=== PATIENT | female | born 1960 | race African-American/Black ===

== ENCOUNTER 2020-10-25 15:57 | Inpatient (IN) | payer MEDICARE, MEDICAID ==
[~2020-10-25] VITALS: Ht 170.2 cm; Wt 90.2 kg
[2020-10-25 17:20] LABS: BILIRUBIN,URINE NEG (NEG); CLARITY,URINE CLEAR; COLOR,URINE YELLOW; GLUCOSE,URINE NEG (NEG); NITRITE,URINE NEG (NEG); UROBILINOGEN,URINE 0.2 mg/dL (0.2 mg/dL)
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
[2020-10-25 17:24] LABS: BACTERIA,URINE FEW /HPF (0-FEW); SQUAMOUS EPITHELIAL CELL,UR MOD /LPF
[2020-10-25 17:25] LABS: HYALINE CASTS, URINE OCC /HPF
[2020-10-25 17:56] LABS: BASO % 1 % (0-3); EOS % 1 % (0-3); HEMATOCRIT 35.4 % (36.0-47.0); HEMOGLOBIN 11.6 g/dL (12.0-15.5); LYMPH % 37 % (24-48); MEAN CORPUSCULAR HEMOGLOBIN 29 pg (25-35); MEAN CORPUSCULAR HGB CONC 33 g/dL (31-37); MEAN CORPUSCULAR VOLUME 88 fL (79-100); MONO # 0.4 x10^3/uL (0.0-1.1); MONO % 8 % (0-9); NEUT # 2.8 x10^3uL (1.8-7.7); NEUT % 53 % (31-73); PLATELET COUNT 228 x10^3/uL (140-400); RED BLOOD COUNT 4.03 x10^6/uL (3.50-5.40); RED CELL DISTRIBUTION WIDTH 14.5 % (11.5-14.5); WHITE BLOOD COUNT 5.3 x10^3/uL (4.0-11.0)
[2020-10-25 18:07] LABS: CALCIUM 8.4 mg/dL (8.5-10.1); CREATININE 1.2 mg/dL (0.6-1.0); GFR 55.6; POTASSIUM 4.2 mmol/L (3.5-5.1)
[2020-10-25 18:13] LABS: ALBUMIN 3.4 g/dL (3.4-5.0); TOTAL BILIRUBIN 0.2 mg/dL (0.2-1.0); TOTAL PROTEIN 6.9 g/dL (6.4-8.2)
[2020-10-25] MEDS ORDERED: MAGNESIUM HYDROXIDE 2,400 MG/30 ML ORAL.SUSP. PO PRN (19:00)
[2020-10-25] MEDS ORDERED: METHYL SALICYLATE/MENTHOL TOPICAL OINTMENT 57GM TUBE. TP PRN (19:00)
[2020-10-25] MEDS ORDERED: MAG HYDROX/AL HYDROX/SIMETH 30 ML ORAL.SUSP PO PRN (19:00)
[2020-10-25] MEDS ORDERED: ACETAMINOPHEN 325 MG TABLET PO PRN (19:00)
--- NOTE | 2020-10-25 20:23 | EKG ---
[address] [address] Test Date: 2020-10-25 Test Time: 16:53:38 Pat Name: RAMIN BLACKBURN Department: Room: [address] [place] [address] Gender: F Racing Secretary: CLAUDIA : [id number] Requested By: YANCY REED Order Number: [id number] Reading MD: Marcus Jane Measurements Intervals [place] Rate: 72 P: 35 GA: 122 QRS: 36 QRSD: 82 T: 46 QT: 410 QTc: 451 Interpretive Statements SINUS RHYTHM NORMAL ECG RI6.02 No previous ECG available for comparison Electronically Signed On 10-31-2020 12:46:13 CDT by Marcus Jane
--- NOTE | 2020-10-25 22:01 | PDOC ---
Exam Note: Jaren Note: Please also refer to the separate dictated note~for this date of service dictated separately.~Patient seen individually. Discussed the patient with Nursing staff reviewed the chart.~Reviewed interim history and current functioning. Reviewed vital signs,~Labs/ Radiology~and current medications noted below. Continue current treatment with the changes noted in the dictated addendum note Assessment: Vital Signs/I&O: Vital Signs Date Time Temp Pulse Resp B/P (MAP) Pulse Ox O2 Delivery O2 Flow Rate FiO2 10/25/20 17:08 98.4 75 20 135/101 100 Labs: Laboratory Tests Test 10/25/20 16:43 10/25/20 17:39 10/25/20 19:00 Urine Collection Type Unknown Urine Color Yellow Urine Clarity Clear Urine pH 7.0 Urine Specific [place] 1.020 Urine Protein Neg (NEG-TRACE) Urine Glucose (UA) Neg mg/dL (NEG) Urine Ketones (Stick) Neg mg/dL (NEG) Urine Blood Neg (NEG) Urine Nitrite Neg (NEG) Urine Bilirubin Neg (NEG) Urine Urobilinogen Dipstick 0.2 mg/dL (0.2 mg/dL) Urine Leukocyte Esterase Trace (NEG) Urine RBC 1-2 /HPF (0-2) Urine WBC 1-4 /HPF (0-4) Urine Squamous Epithelial Cells Mod /LPF Urine Transitional Epithelial Cells Few /LPF Urine Renal Epithelial Cells Occ /LPF Urine Bacteria Few /HPF (0-FEW) Urine Hyaline Casts Occ /HPF SARS-CoV-2 Antigen (Rapid) Negative (NEGATIVE) White Blood Count 5.3 x10^3/uL (4.0-11.0) Red Blood Count 4.03 x10^6/uL (3.50-5.40) Hemoglobin 11.6 g/dL (12.0-15.5) L Hematocrit 35.4 % (36.0-47.0) L Mean Corpuscular Volume 88 fL (79-100) Mean Corpuscular Hemoglobin 29 pg (25-35) Mean Corpuscular Hemoglobin Concent 33 g/dL (31-37) Red Cell Distribution Width 14.5 % (11.5-14.5) Platelet Count 228 x10^3/uL (140-400) Neutrophils (%) (Auto) 53 % (31-73) Lymphocytes (%) (Auto) 37 % (24-48) Monocytes (%) (Auto) 8 % (0-9) Eosinophils (%) (Auto) 1 % (0-3) Basophils (%) (Auto) 1 % (0-3) Neutrophils # (Auto) 2.8 x10^3uL (1.8-7.7) Lymphocytes # (Auto) 2.0 x10^3/uL (1.0-4.8) Monocytes # (Auto) 0.4 x10^3/uL (0.0-1.1) Eosinophils # (Auto) 0.0 x10^3/uL (0.0-0.7) Basophils # (Auto) 0.0 x10^3/uL (0.0-0.2) Sodium Level 141 mmol/L (136-145) Potassium Level 4.2 mmol/L (3.5-5.1) Chloride Level 107 mmol/L (98-107) Carbon Dioxide Level 22 mmol/L (21-32) Anion Gap 12 (6-14) Blood Urea Nitrogen 17 mg/dL (7-20) Creatinine 1.2 mg/dL (0.6-1.0) H Estimated GFR (Cockcroft-Gault) 55.6 BUN/Creatinine Ratio 14 (6-20) Glucose Level 250 mg/dL (70-99) H Calcium Level 8.4 mg/dL (8.5-10.1) L Total Bilirubin 0.2 mg/dL (0.2-1.0) Aspartate Amino Transferase (AST) 20 U/L (15-37) Alanine Aminotransferase (ALT) 24 U/L (14-59) Alkaline Phosphatase 144 U/L (46-116) H Troponin I Quantitative < 0.017 ng/mL (0-0.055) Total Protein 6.9 g/dL (6.4-8.2) Albumin 3.4 g/dL (3.4-5.0) Albumin/Globulin Ratio 1.0 (1.0-1.7) Magnesium Level 2.4 mg/dL (1.8-2.4) Current Medications: I have reviewed the current psychotropics carefully including drug interactions. Risk benefit ratio favors no change other than as noted in my dictated progress note. Diagnosis: Problems: (1) Schizoaffective disorder, bipolar type JESSICA RAMESH MD Oct 25, 2020 22:01
[2020-10-25] MEDS ORDERED: SERT100T PO (22:11)
[2020-10-25] MEDS ORDERED: INSU100I13 SQ (22:11)
[2020-10-25] MEDS ORDERED: BUSP10TA PO (22:11)
[2020-10-25] MEDS ORDERED: ACET500T68 PO (22:11)
[2020-10-25] MEDS ORDERED: AMAN100T PO (22:11)
[2020-10-25] MEDS ORDERED: LIPA1CAP6 PO (22:11)
[2020-10-25] MEDS ORDERED: DIVA500T2 PO (22:11)
[2020-10-25] MEDS ORDERED: MELO15TA6 PO (22:11)
[2020-10-25] MEDS ORDERED: CAPS1ADH8 TP (22:11)
[2020-10-25] MEDS ORDERED: LORA2ORA8 PO (22:11)
[2020-10-25] MEDS ORDERED: RISP0.5T62 PO (22:11)
[2020-10-25] MEDS ORDERED: FURO-69 PO (22:11)
[2020-10-25] MEDS ORDERED: DEXTROSE 50% 25 GM / 50ML DISP.SYRIN. IV PRN (22:15)
[2020-10-25 22:25] VITALS: BP 126/75
[2020-10-25] MEDS ORDERED: INSU100C SQ (22:32)
[2020-10-25] MEDS ORDERED: INSU100V SQ (22:32)
[2020-10-25] MEDS ORDERED: DIVALPROEX SODIUM 125 MG TABLET.DR. PO SCH (23:00)
[2020-10-25] MEDS: AMANTADINE HCL 100 MG PO SCH (23:00)
[2020-10-25] MEDS: busPIRone 10 MG TABLET. PO SCH (23:19)
[2020-10-25] MEDS: risperiDONE 0.5 MG TABLET. PO SCH (23:19)
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
[2020-10-26 06:02] VITALS: BP 158/76
[2020-10-26] MEDS: INSULIN LISPRO 300 UNITS/3 ML VIAL. SQ SCH ×2 (08:00→12:20)
[2020-10-26] MEDS ORDERED: CAPSAICIN TP SCH (09:00)
[2020-10-26] MEDS ORDERED: NON FORMULARY ITEM (Insulin Lispro (Humalog) 10 UNIT) SQ SCH (09:00)
[2020-10-26] MEDS ORDERED: INSULIN LISPRO 300 UNITS/3 ML VIAL. SQ SCH ×2 (09:00→12:00)
[2020-10-26] MEDS: NICOTINE 14MG PATCH. TD SCH (09:00)
[2020-10-26] MEDS ORDERED: MENTHOL TP SCH (09:00)
--- NOTE | 2020-10-26 09:20 | NUR ---
Patient has been provided with Practical Counseling for tobacco cessation. It included a face to face interaction and the following was discussed: Recognizing danger situations, Developing coping skills,Basic cessation information. Will follow for discharge needs and discharge planning.
[2020-10-26] MEDS: LIPASE/PROTEAS/AMYLAS 10/32/42 CAPSULE.DR. PO SCH (09:45)
[2020-10-26] MEDS: ACETAMINOPHEN 500 MG TABLET PO SCH (09:45)
[2020-10-26] MEDS: SERTRALINE 100 MG TABLET. PO SCH (09:45)
[2020-10-26] MEDS: busPIRone 10 MG TABLET. PO SCH ×3 (09:45→21:03)
[2020-10-26] MEDS: FUROSEMIDE 20 MG TABLET PO SCH (09:46)
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
[2020-10-26 11:12] LABS: THYROXINE 5.1 ug/dL (4.5-12.0)
[2020-10-26] MEDS: LORazepam 1 MG TABLET PO PRN (11:20)
[2020-10-26] MEDS ORDERED: INSULIN GLARGINE SYRINGE. SQ SCH ×2 (12:00→16:00)
[2020-10-26] MEDS ORDERED: INSULIN LISPRO 18 UNIT SQ SCH (12:00)
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
[2020-10-26 15:56] LABS: THYROID STIM HORMONE (TSH) 0.933 uIU/mL (0.358-3.740)
[2020-10-26 16:03] VITALS: BP 134/76
[2020-10-26] MEDS ORDERED: DEXTROSE 50% 25 GM / 50ML DISP.SYRIN. IV PRN (16:15)
[2020-10-26] MEDS: MELOXICAM 15 MG TABLET. PO SCH ×2 (21:00→21:06)
[2020-10-26] MEDS: DIVALPROEX ER 500 MG TAB.ER.24H PO SCH ×2 (21:00→21:04)
[2020-10-26] MEDS: risperiDONE 0.5 MG TABLET. PO SCH ×2 (21:00→21:04)
[2020-10-26] MEDS: AMANTADINE HCL 100 MG PO SCH (21:00)
[2020-10-26] MEDS: DIVALPROEX ER 250 MG TAB.ER.24H. PO SCH ×2 (21:00→21:03)
--- NOTE | 2020-10-26 22:51 | PDOC ---
Exam Note: Jaren Note: Please also refer to the separate dictated note~for this date of service dictated separately.~Patient seen individually. Discussed the patient with Nursing staff reviewed the chart.~Reviewed interim history and current functioning. Reviewed vital signs,~Labs/ Radiology~and current medications noted below. Continue current treatment with the changes noted in the dictated addendum note Assessment: Vital Signs/I&O: Vital Signs Date Time Temp Pulse Resp B/P (MAP) Pulse Ox O2 Delivery O2 Flow Rate FiO2 10/26/20 16:03 97.0 68 18 134/76 (95) 96 10/26/20 06:02 Room Air Labs: Laboratory Tests Test 10/26/20 09:34 10/26/20 12:16 10/26/20 15:23 10/26/20 15:38 Glucose (Fingerstick) 150 mg/dL (70-99) H 250 mg/dL (70-99) H 20 mg/dL (70-99) *L 27 mg/dL (70-99) *L Test 10/26/20 15:52 10/26/20 16:01 10/26/20 16:12 10/26/20 17:06 Glucose (Fingerstick) 22 mg/dL (70-99) *L 36 mg/dL (70-99) *L 40 mg/dL (70-99) L 119 mg/dL (70-99) H Test 10/26/20 19:41 Glucose (Fingerstick) 421 mg/dL (70-99) H Current Medications: Meds: Current Medications Medications (Trade) Dose Ordered Sig/Jenise Route PRN Reason Start Time Stop Time Status Last Admin Dose Admin Insulin Human Lispro (HumaLOG) 0-7 UNITS TIDWMEALS SQ 10/26/20 08:00 10/26/20 16:01 DC 10/26/20 12:20 Insulin Human Lispro (HumaLOG) 10 units [id number] SQ 10/26/20 09:00 10/26/20 16:01 DC 10/26/20 09:00 Insulin Human Lispro (HumaLOG) 18 units NOON SQ 10/26/20 12:00 10/26/20 16:01 DC 10/26/20 12:00 Acetaminophen (Tylenol) 1,000 mg DAILY PO 10/26/20 09:00 10/26/20 09:45 Buspirone HCl (Buspar) 10 mg BID PO 10/25/20 23:00 10/26/20 09:45 Furosemide (Lasix) 20 mg DAILY PO 10/26/20 09:00 10/26/20 09:46 Lorazepam (Ativan) 2 mg PRN Q4HRS PRN PO ANXIETY / AGITATION 10/25/20 23:00 10/26/20 11:20 Risperidone (RisperDAL) 0.75 mg QHS PO 10/25/20 23:00 10/25/20 23:19 Sertraline HCl (Zoloft) 100 mg DAILY PO 10/26/20 09:00 10/26/20 09:45 Amantadine HCl (Symmetrel) 100 mg HS PO 10/25/20 23:00 10/25/20 23:00 Divalproex Sodium (Depakote) 1,250 mg HS PO 10/25/20 23:00 10/26/20 13:06 DC 10/25/20 23:18 Insulin Glargine (Lantus Syringe) 16 unit NOON SQ 10/26/20 12:00 10/26/20 16:01 DC 10/26/20 12:00 Amylase/Lipase/ Protease (Zenpep 10,000) 2 cap DAILY PO 10/26/20 09:00 10/26/20 09:45 Nicotine (Nicoderm Cq 14mg Patch) 1 patch DAILY TD 10/26/20 09:00 10/26/20 09:00 I have reviewed the current psychotropics carefully including drug interactions. Risk benefit ratio favors no change other than as noted in my dictated progress note. Diagnosis: Problems: (1) Schizoaffective disorder, bipolar type JESSICA RAMESH MD Oct 26, 2020 22:51
--- NOTE | 2020-10-26 22:58 | NUR ---
Nursing notes: Pt sleeping, arousable, but refused medications. Addendum: 10/27/20 at 0012 by FLORENCIO CHINO RN Called Dr. Glez at 2013 regarding blood glucose level of 421; order monitor, recheck at midnight.
[2020-10-27 00:07] LABS: HEMOGLOBIN A1C 7.8 % (4.8-5.6)
[2020-10-27 05:57] VITALS: BP 132/75
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
[2020-10-27] MEDS: LIPASE/PROTEAS/AMYLAS 10/32/42 CAPSULE.DR. PO SCH (08:33)
[2020-10-27] MEDS: FUROSEMIDE 20 MG TABLET PO SCH (08:33)
[2020-10-27] MEDS: SERTRALINE 100 MG TABLET. PO SCH (08:33)
[2020-10-27] MEDS: busPIRone 10 MG TABLET. PO SCH ×2 (08:33→20:41)
[2020-10-27] MEDS: ACETAMINOPHEN 500 MG TABLET PO SCH (08:34)
[2020-10-27] MEDS: INSULIN LISPRO 300 UNITS/3 ML VIAL. SQ SCH ×4 (08:39→20:47)
[2020-10-27] MEDS: NICOTINE 14MG PATCH. TD SCH (08:42)
--- NOTE | 2020-10-27 09:45 | RAD ---
EXAM: CT head without contrast INDICATION: Baseline COMPARISON: None TECHNIQUE: Axial CT imaging through the head without intravenous contrast. One or more of the following individualized dose reduction techniques were utilized for this examinat ion: 1. Automated exposure control 2. Adjustment of the mA and/or kV according to patient size 3. Use of iterative reconstruction technique. FINDINGS: The ventricles and sulci are mildly enlarged. Moser-white matter differentiation is maintained. There is no intracranial hemorrhage, acute infarct, or mass lesion. Basal cisterns are clear. The skull and scalp are intact. Visualized paranasal sinuses and mastoid air cells are clear. Globes and orbits ar e intact. IMPRESSION: No acute intracranial abnormality. Electronically signed by: Jerri Courtney MD (10/27/2020 9:43 AM) [id number]
[2020-10-27 15:39] VITALS: BP 148/86
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
[2020-10-27] MEDS: AMANTADINE HCL 100 MG PO SCH (20:41)
[2020-10-27] MEDS: risperiDONE 0.5 MG TABLET. PO SCH (20:41)
[2020-10-27] MEDS: DIVALPROEX ER 250 MG TAB.ER.24H. PO SCH (20:41)
[2020-10-27] MEDS: DIVALPROEX ER 500 MG TAB.ER.24H PO SCH (20:41)
[2020-10-27] MEDS: MELOXICAM 15 MG TABLET. PO SCH (20:41)
--- NOTE | 2020-10-27 22:29 | PDOC ---
Exam Note: Jaren Note: Please also refer to the separate dictated note~for this date of service dictated separately.~Patient seen individually. Discussed the patient with Nursing staff reviewed the chart.~Reviewed interim history and current functioning. Reviewed vital signs,~Labs/ Radiology~and current medications noted below. Continue current treatment with the changes noted in the dictated addendum note Assessment: Vital Signs/I&O: Vital Signs Date Time Temp Pulse Resp B/P (MAP) Pulse Ox O2 Delivery O2 Flow Rate FiO2 10/27/20 15:39 97.9 72 20 148/86 (106) 98 10/27/20 05:57 Room Air I & O 10/26/20 10/26/20 10/27/20 15:00 23:00 07:00 Intake Total 240 ml 480 ml Balance 240 ml 480 ml Labs: Laboratory Tests Test 10/27/20 00:39 10/27/20 07:39 10/27/20 11:23 10/27/20 16:43 Glucose (Fingerstick) 286 mg/dL (70-99) H 225 mg/dL (70-99) H 341 mg/dL (70-99) H 326 mg/dL (70-99) H Test 10/27/20 19:15 Glucose (Fingerstick) 296 mg/dL (70-99) H Current Medications: Meds: Current Medications Medications (Trade) Dose Ordered Sig/Jenise Route PRN Reason Start Time Stop Time Status Last Admin Dose Admin Insulin Human Lispro (HumaLOG) 0-5 UNITS TIDWMEALS SQ 10/27/20 08:00 10/27/20 19:44 DC 10/27/20 17:29 Insulin Human Lispro (HumaLOG) 0-5 UNITS QIDACHS SQ 10/27/20 21:00 10/27/20 20:47 I have reviewed the current psychotropics carefully including drug interactions. Risk benefit ratio favors no change other than as noted in my dictated progress note. Diagnosis: Problems: (1) Bipolar disorder, current episode mixed, severe, with psychotic features (2) Anxiety disorder, unspecified (3) Impulse control disorder, unspecified (4) Mild cognitive impairment (5) Schizoaffective disorder, bipolar type JESSICA RAMESH MD Oct 27, 2020 22:29
--- NOTE | 2020-10-27 22:46 | NUR ---
Pt sitting up in the dayroom on assessment. Pt calm and compliant with medication and assessment. Pt denies pain at this time. No behaviors noted at this time.
[2020-10-28 05:45] VITALS: BP 125/76
[2020-10-28] MEDS: INSULIN LISPRO 300 UNITS/3 ML VIAL. SQ SCH ×3 (07:30→17:18)
[2020-10-28] MEDS: busPIRone 10 MG TABLET. PO SCH ×2 (09:00→20:06)
[2020-10-28] MEDS: LIPASE/PROTEAS/AMYLAS 10/32/42 CAPSULE.DR. PO SCH (09:01)
[2020-10-28] MEDS: SERTRALINE 100 MG TABLET. PO SCH (09:01)
[2020-10-28] MEDS: ACETAMINOPHEN 500 MG TABLET PO SCH (09:01)
[2020-10-28] MEDS: FUROSEMIDE 20 MG TABLET PO SCH (09:02)
[2020-10-28] MEDS: NICOTINE 14MG PATCH. TD SCH (09:03)
--- NOTE | 2020-10-28 09:46 | PDOC ---
Exam Note: Jaren Note: This note is a late entry for 10/27/2020 covers elements not covered in my initial note. Subjective: The patient was seen on telehealth rounds in the afternoon of 10/27/2020 as an option during the COVID-19 pandemic period with Maryanne TOBIN, discussed and reviewed the chart. She slept 9-1/2 hours previous night. The patient had low blood sugar yesterday which was corrected and some of the confusion from that seemed to improve. She came to the dayroom after breakfast, was calm, response to her name, unsure of her birthday. CT head shows no acute changes but there is ventricular enlargement and widening of the sulci. When I questioned her on telehealth rounds on where she came from she stated she came here directly from [place], unaware of the name of the facility where she came from. Review of Systems: Ambulation impaired in wheelchair. No CV, , pulmonary, eye, ENT system symptoms on review. Mental Status Exam: The patient is oriented to herself and at times situation. Speech has some latency, coherent. Abstraction fair. Computation impaired. Language function intact. Attention span short. Memory is impaired, somewhat paranoid. No suicidal or homicidal ideation. Laboratory Data: Reviewed. Impression: Schizoaffective disorder bipolar type with psychotic features. Anxiety disorder unspecified. Impulse control disorder unspecified. Mild cognitive impairment. Plan: Continue current psychotropics. Valproic acid level is awaited. We will adjust Depakote thereafter. Consider increasing Risperdal for psychotic symptoms. We may consider changing Zoloft to Wellbutrin as an antidepressant. We will make all these decisions post-baseline assessment. Assessment: Vital Signs/I&O: Vital Signs Date Time Temp Pulse Resp B/P (MAP) Pulse Ox O2 Delivery O2 Flow Rate FiO2 10/28/20 05:45 97.2 72 16 125/76 (92) 98 10/27/20 05:57 Room Air I & O 0 10/27/20 10/27/20 10/28/20 15:00 23:00 07:00 Intake Total 1080 ml 720 ml Balance 1080 ml 720 ml Labs: Laboratory Tests Test 10/27/20 11:23 10/27/20 16:43 10/27/20 19:15 10/28/20 07:51 Glucose (Fingerstick) 341 mg/dL (70-99) H 326 mg/dL (70-99) H 296 mg/dL (70-99) H 201 mg/dL (70-99) H Current Medications: Meds: Laboratory Tests Test 10/27/20 11:23 10/27/20 16:43 10/27/20 19:15 10/28/20 07:51 Glucose (Fingerstick) 341 mg/dL 326 mg/dL 296 mg/dL 201 mg/dL Current Medications Medications (Trade) Dose Ordered Sig/Jenise Route PRN Reason Start Time Stop Time Status Last Admin Dose Admin Acetaminophen (Tylenol) 650 mg PRN Q6HRS PRN PO MILD PAIN / TEMP > 100.3'F 10/25/20 19:00 Multi-Ingredient Ointment (Analgesic [place]) 1 cody PRN QID PRN TP MUSCLE PAIN 10/25/20 19:00 Al Hydroxide/Mg Hydroxide (Mylanta Plus Xs) 15 ml PRN AFTMEALHC PRN PO DYSPEPSIA 10/25/20 19:00 Magnesium Hydroxide (Milk Of Magnesia) 2,400 mg PRN QHS PRN PO CONSTIPATION 10/25/20 19:00 Insulin Human Lispro (HumaLOG) 0-7 UNITS TIDWMEALS SQ 10/26/20 08:00 10/26/20 16:01 DC 10/26/20 12:20 Dextrose (Dextrose 50%-Water Syringe) 12.5 gm PRN Q15MIN PRN IV SEE COMMENTS 10/25/20 22:15 10/26/20 16:01 DC Insulin Human Lispro (HumaLOG) 10 units BID94 SQ 10/26/20 09:00 10/26/20 16:01 DC 10/26/20 09:00 Insulin Human Lispro (HumaLOG) 18 units NOON SQ 10/26/20 12:00 10/26/20 16:01 DC 10/26/20 12:00 Acetaminophen (Tylenol) 1,000 mg DAILY PO 10/26/20 09:00 10/28/20 09:01 Buspirone HCl (Buspar) 10 mg BID PO 10/25/20 23:00 10/28/20 09:00 Furosemide (Lasix) 20 mg DAILY PO 10/26/20 09:00 10/28/20 09:02 Lorazepam (Ativan) 2 mg PRN Q4HRS PRN PO ANXIETY / AGITATION 10/25/20 23:00 10/26/20 11:20 Risperidone (RisperDAL) 0.75 mg QHS PO 10/25/20 23:00 10/27/20 20:41 Sertraline HCl (Zoloft) 100 mg DAILY PO 10/26/20 09:00 10/28/20 09:01 Amantadine HCl (Symmetrel) 100 mg HS PO 10/25/20 23:00 10/27/20 20:41 Non-Formulary Medication (Capsaicin/ Menthol (Salonpas Gel-Patch Hot)) 1 patch DAILY TP 10/26/20 09:00 UNV Divalproex Sodium (Depakote) 1,250 mg HS PO 10/25/20 23:00 10/26/20 13:06 DC 10/25/20 23:18 Insulin Glargine (Lantus Syringe) 16 unit NOON SQ 10/26/20 12:00 10/26/20 16:01 DC 10/26/20 12:00 Amylase/Lipase/ Protease (Zenpep 10,000) 2 cap DAILY PO 10/26/20 09:00 10/28/20 09:01 Meloxicam (Mobic) 15 mg HS PO 10/26/20 21:00 10/27/20 20:41 Non-Formulary Medication (Insulin Lispro (Humalog)) 10 unit BID94 SQ 10/26/20 09:00 UNV Non-Formulary Medication (Insulin Lispro (Humalog)) 18 unit NOON SQ 10/26/20 12:00 UNV Nicotine (Nicoderm Cq 14mg Patch) 1 patch DAILY TD 10/26/20 09:00 10/28/20 09:03 Divalproex Sodium (Depakote Er) 1,000 mg HS PO 10/26/20 21:00 10/27/20 20:41 Divalproex Sodium (Depakote Er) 250 mg HS PO 10/26/20 21:00 10/27/20 20:41 Glucose (Insta-Glucose) 15 gm PRN Q15MIN PRN PO LOW BLOOD SUGAR 10/26/20 15:45 Insulin Glargine (Lantus Syringe) 8 unit NOON SQ 10/26/20 16:00 UNV Insulin Human Lispro (HumaLOG) 0-5 UNITS TIDWMEALS SQ 10/27/20 08:00 10/27/20 19:44 DC 10/27/20 17:29 Dextrose (Dextrose 50%-Water Syringe) 12.5 gm PRN Q15MIN PRN IV SEE COMMENTS 10/26/20 16:15 Insulin Human Lispro (HumaLOG) 0-5 UNITS QIDACHS SQ 10/27/20 21:00 10/27/20 20:47 Current Medications Medications (Trade) Dose Ordered Sig/Jenise Route PRN Reason Start Time Stop Time Status Last Admin Dose Admin Insulin Human Lispro (HumaLOG) 0-5 UNITS QIDACHS SQ 10/27/20 21:00 10/27/20 20:47 I have reviewed the current psychotropics carefully including drug interactions. Risk benefit ratio favors no change other than as noted in my dictated progress note. Diagnosis: Problems: (1) Schizoaffective disorder, bipolar type (2) Impulse control disorder, unspecified (3) Mild cognitive impairment (4) Anxiety disorder, unspecified (5) Bipolar disorder, current episode mixed, severe, with psychotic features JESSICA RAMESH MD Oct 28, 2020 09:46
--- NOTE | 2020-10-28 11:27 | NUR ---
Nursing Note Pt pleasant and cooperative. No behaviors compliant with meds. Denies complaints.
[2020-10-28] MEDS ORDERED: INSULIN LISPRO 300 UNITS/3 ML VIAL. SQ SCH (12:00)
[2020-10-28] MEDS ORDERED: DEXTROSE 50% 25 GM / 50ML DISP.SYRIN. IV PRN (12:00)
[2020-10-28 16:34] VITALS: BP 140/76
[2020-10-28] MEDS: AMANTADINE HCL 100 MG PO SCH (20:05)
[2020-10-28] MEDS: DIVALPROEX ER 250 MG TAB.ER.24H. PO SCH (20:05)
[2020-10-28] MEDS: MELOXICAM 15 MG TABLET. PO SCH (20:05)
[2020-10-28] MEDS: DIVALPROEX ER 500 MG TAB.ER.24H PO SCH (20:05)
[2020-10-28] MEDS: risperiDONE 0.5 MG TABLET. PO SCH (20:06)
[2020-10-28] MEDS ORDERED: INSULIN GLARGINE SYRINGE. SQ SCH (21:00)
--- NOTE | 2020-10-28 21:58 | PDOC ---
Exam Note: Jaren Note: Please also refer to the separate dictated note~for this date of service dictated separately.~Patient seen individually. Discussed the patient with Nursing staff reviewed the chart.~Reviewed interim history and current functioning. Reviewed vital signs,~Labs/ Radiology~and current medications noted below. Continue current treatment with the changes noted in the dictated addendum note Assessment: Vital Signs/I&O: Vital Signs Date Time Temp Pulse Resp B/P (MAP) Pulse Ox O2 Delivery O2 Flow Rate FiO2 10/28/20 16:34 97.3 89 16 140/76 (97) 95 10/27/20 05:57 Room Air I & O 10/27/20 10/27/20 10/28/20 15:00 23:00 07:00 Intake Total 1080 ml 720 ml Balance 1080 ml 720 ml Labs: Laboratory Tests Test 10/28/20 07:51 10/28/20 11:31 10/28/20 16:51 10/28/20 19:02 Glucose (Fingerstick) 201 mg/dL (70-99) H 487 mg/dL (70-99) H 203 mg/dL (70-99) H 217 mg/dL (70-99) H Current Medications: Meds: Laboratory Tests Test 10/28/20 07:51 10/28/20 11:31 10/28/20 16:51 10/28/20 19:02 Glucose (Fingerstick) 201 mg/dL 487 mg/dL 203 mg/dL 217 mg/dL Current Medications Medications (Trade) Dose Ordered Sig/Jenise Route PRN Reason Start Time Stop Time Status Last Admin Dose Admin Acetaminophen (Tylenol) 650 mg PRN Q6HRS PRN PO MILD PAIN / TEMP > 100.3'F 10/25/20 19:00 Multi-Ingredient Ointment (Analgesic [place]) 1 cody PRN QID PRN TP MUSCLE PAIN 10/25/20 19:00 Al Hydroxide/Mg Hydroxide (Mylanta Plus Xs) 15 ml PRN AFTMEALHC PRN PO DYSPEPSIA 10/25/20 19:00 Magnesium Hydroxide (Milk Of Magnesia) 2,400 mg PRN QHS PRN PO CONSTIPATION 10/25/20 19:00 Insulin Human Lispro (HumaLOG) 0-7 UNITS TIDWMEALS SQ 10/26/20 08:00 10/26/20 16:01 DC 10/26/20 12:20 Dextrose (Dextrose 50%-Water Syringe) 12.5 gm PRN Q15MIN PRN IV SEE COMMENTS 10/25/20 22:15 10/26/20 16:01 DC Insulin Human Lispro (HumaLOG) 10 units BID94 SQ 10/26/20 09:00 10/26/20 16:01 DC 10/26/20 09:00 Insulin Human Lispro (HumaLOG) 18 units NOON SQ 10/26/20 12:00 10/26/20 16:01 DC 10/26/20 12:00 Acetaminophen (Tylenol) 1,000 mg DAILY PO 10/26/20 09:00 10/28/20 09:01 Buspirone HCl (Buspar) 10 mg BID PO 10/25/20 23:00 10/28/20 20:06 Furosemide (Lasix) 20 mg DAILY PO 10/26/20 09:00 10/28/20 09:02 Lorazepam (Ativan) 2 mg PRN Q4HRS PRN PO ANXIETY / AGITATION 10/25/20 23:00 10/26/20 11:20 Risperidone (RisperDAL) 0.75 mg QHS PO 10/25/20 23:00 10/28/20 20:06 Sertraline HCl (Zoloft) 100 mg DAILY PO 10/26/20 09:00 10/28/20 09:01 Amantadine HCl (Symmetrel) 100 mg HS PO 10/25/20 23:00 10/28/20 20:05 Non-Formulary Medication (Capsaicin/ Menthol (Salonpas Gel-Patch Hot)) 1 patch DAILY TP 10/26/20 09:00 UNV Divalproex Sodium (Depakote) 1,250 mg HS PO 10/25/20 23:00 10/26/20 13:06 DC 10/25/20 23:18 Insulin Glargine (Lantus Syringe) 16 unit NOON SQ 10/26/20 12:00 10/26/20 16:01 DC 10/26/20 12:00 Amylase/Lipase/ Protease (Zenpep 10,000) 2 cap DAILY PO 10/26/20 09:00 10/28/20 09:01 Meloxicam (Mobic) 15 mg HS PO 10/26/20 21:00 10/28/20 20:05 Non-Formulary Medication (Insulin Lispro (Humalog)) 10 unit BID94 SQ 10/26/20 09:00 UNV Non-Formulary Medication (Insulin Lispro (Humalog)) 18 unit NOON SQ 10/26/20 12:00 UNV Nicotine (Nicoderm Cq 14mg Patch) 1 patch DAILY TD 10/26/20 09:00 10/28/20 09:03 Divalproex Sodium (Depakote Er) 1,000 mg HS PO 10/26/20 21:00 10/28/20 20:05 Divalproex Sodium (Depakote Er) 250 mg HS PO 10/26/20 21:00 10/28/20 20:05 Glucose (Insta-Glucose) 15 gm PRN Q15MIN PRN PO LOW BLOOD SUGAR 10/26/20 15:45 Insulin Glargine (Lantus Syringe) 8 unit NOON SQ 10/26/20 16:00 UNV Insulin Human Lispro (HumaLOG) 0-5 UNITS TIDWMEALS SQ 10/27/20 08:00 10/27/20 19:44 DC 10/27/20 17:29 Dextrose (Dextrose 50%-Water Syringe) 12.5 gm PRN Q15MIN PRN IV SEE COMMENTS 10/26/20 16:15 Insulin Human Lispro (HumaLOG) 0-5 UNITS QIDACHS SQ 10/27/20 21:00 10/28/20 11:58 DC 10/27/20 20:47 Insulin Glargine (Lantus Syringe) 10 unit QHS SQ 10/28/20 21:00 10/28/20 20:07 Insulin Human Lispro (HumaLOG) 0-9 UNITS TIDWMEALS SQ 10/28/20 12:00 10/28/20 17:18 Dextrose (Dextrose 50%-Water Syringe) 12.5 gm PRN Q15MIN PRN IV SEE COMMENTS 10/28/20 12:00 UNV Insulin Human Lispro (HumaLOG) 12 units ONCE SQ 10/28/20 12:00 10/28/20 12:17 Current Medications Medications (Trade) Dose Ordered Sig/Jenise Route PRN Reason Start Time Stop Time Status Last Admin Dose Admin Insulin Glargine (Lantus Syringe) 10 unit QHS SQ 10/28/20 21:00 10/28/20 20:07 Insulin Human Lispro (HumaLOG) 0-9 UNITS TIDWMEALS SQ 10/28/20 12:00 10/28/20 17:18 Insulin Human Lispro (HumaLOG) 12 units ONCE SQ 10/28/20 12:00 10/28/20 12:17 I have reviewed the current psychotropics carefully including drug interactions. Risk benefit ratio favors no change other than as noted in my dictated progress note. Diagnosis: Problems: (1) Schizoaffective disorder, bipolar type (2) Impulse control disorder, unspecified (3) Mild cognitive impairment (4) Anxiety disorder, unspecified (5) Bipolar disorder, current episode mixed, severe, with psychotic features JESSICA RAMESH MD Oct 28, 2020 21:58
--- NOTE | 2020-10-28 23:29 | NUR ---
Pt sitting up in day room, interacting with peer when approached. Pt calm, pleasant, and social this evening. Pt cooperative with assessment and compliant with medications administered whole. No agitation or aggression noted thus far this shift.
[2020-10-29 05:25] VITALS: BP 161/94
[2020-10-29] MEDS: LIPASE/PROTEAS/AMYLAS 10/32/42 CAPSULE.DR. PO SCH (08:30)
[2020-10-29] MEDS: ACETAMINOPHEN 500 MG TABLET PO SCH (08:31)
[2020-10-29] MEDS: busPIRone 10 MG TABLET. PO SCH ×2 (08:31→20:48)
[2020-10-29] MEDS: SERTRALINE 100 MG TABLET. PO SCH (08:31)
[2020-10-29] MEDS: FUROSEMIDE 20 MG TABLET PO SCH (08:31)
[2020-10-29] MEDS: NICOTINE 14MG PATCH. TD SCH (08:32)
[2020-10-29] MEDS: INSULIN LISPRO 300 UNITS/3 ML VIAL. SQ SCH ×3 (08:36→17:26)
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
--- NOTE | 2020-10-29 14:39 | NUR ---
nsg note; nalini has been med compliant, calm and cooperative today. she mostly stays in the dayroom between meals and likes to go outside in the courtyard. she is not interactive with other patients
[2020-10-29 16:09] VITALS: BP 159/100
[2020-10-29] MEDS: DIVALPROEX ER 500 MG TAB.ER.24H PO SCH (20:47)
[2020-10-29] MEDS: DIVALPROEX ER 250 MG TAB.ER.24H. PO SCH (20:47)
[2020-10-29] MEDS: AMANTADINE HCL 100 MG PO SCH (20:48)
[2020-10-29] MEDS: risperiDONE 0.5 MG TABLET. PO SCH (20:49)
[2020-10-29] MEDS: INSULIN GLARGINE SYRINGE. SQ SCH (20:50)
--- NOTE | 2020-10-29 21:57 | PDOC ---
Exam Note: Jaren Note: Please also refer to the separate dictated note~for this date of service dictated separately.~Patient seen individually. Discussed the patient with Nursing staff reviewed the chart.~Reviewed interim history and current functioning. Reviewed vital signs,~Labs/ Radiology~and current medications noted below. Continue current treatment with the changes noted in the dictated addendum note Assessment: Vital Signs/I&O: Vital Signs Date Time Temp Pulse Resp B/P (MAP) Pulse Ox O2 Delivery O2 Flow Rate FiO2 10/29/20 16:09 97.8 73 18 159/100 (119) 98 10/27/20 05:57 Room Air I & O 10/28/20 10/28/20 10/29/20 15:00 23:00 07:00 Intake Total 840 ml 600 ml Balance 840 ml 600 ml Labs: Laboratory Tests Test 10/29/20 07:38 10/29/20 11:25 10/29/20 16:29 10/29/20 19:15 Glucose (Fingerstick) 240 mg/dL (70-99) H 213 mg/dL (70-99) H 276 mg/dL (70-99) H 272 mg/dL (70-99) H Current Medications: Meds: Laboratory Tests Test 10/29/20 07:38 10/29/20 11:25 10/29/20 16:29 10/29/20 19:15 Glucose (Fingerstick) 240 mg/dL 213 mg/dL 276 mg/dL 272 mg/dL Current Medications Medications (Trade) Dose Ordered Sig/Jenise Route PRN Reason Start Time Stop Time Status Last Admin Dose Admin Acetaminophen (Tylenol) 650 mg PRN Q6HRS PRN PO MILD PAIN / TEMP > 100.3'F 10/25/20 19:00 Multi-Ingredient Ointment (Analgesic [place]) 1 cody PRN QID PRN TP MUSCLE PAIN 10/25/20 19:00 Al Hydroxide/Mg Hydroxide (Mylanta Plus Xs) 15 ml PRN AFTMEALHC PRN PO DYSPEPSIA 10/25/20 19:00 Magnesium Hydroxide (Milk Of Magnesia) 2,400 mg PRN QHS PRN PO CONSTIPATION 10/25/20 19:00 Insulin Human Lispro (HumaLOG) 0-7 UNITS TIDWMEALS SQ 10/26/20 08:00 10/26/20 16:01 DC 10/26/20 12:20 Dextrose (Dextrose 50%-Water Syringe) 12.5 gm PRN Q15MIN PRN IV SEE COMMENTS 10/25/20 22:15 10/26/20 16:01 DC Insulin Human Lispro (HumaLOG) 10 units BID94 SQ 10/26/20 09:00 10/26/20 16:01 DC 10/26/20 09:00 Insulin Human Lispro (HumaLOG) 18 units NOON SQ 10/26/20 12:00 10/26/20 16:01 DC 10/26/20 12:00 Acetaminophen (Tylenol) 1,000 mg DAILY PO 10/26/20 09:00 10/28/20 09:01 Buspirone HCl (Buspar) 10 mg BID PO 10/25/20 23:00 10/29/20 20:48 Furosemide (Lasix) 20 mg DAILY PO 10/26/20 09:00 10/29/20 08:31 Lorazepam (Ativan) 2 mg PRN Q4HRS PRN PO ANXIETY / AGITATION 10/25/20 23:00 10/26/20 11:20 Risperidone (RisperDAL) 0.75 mg QHS PO 10/25/20 23:00 10/29/20 20:49 Sertraline HCl (Zoloft) 100 mg DAILY PO 10/26/20 09:00 10/29/20 08:31 Amantadine HCl (Symmetrel) 100 mg HS PO 10/25/20 23:00 10/29/20 20:48 Non-Formulary Medication (Capsaicin/ Menthol (Salonpas Gel-Patch Hot)) 1 patch DAILY TP 10/26/20 09:00 UNV Divalproex Sodium (Depakote) 1,250 mg HS PO 10/25/20 23:00 10/26/20 13:06 DC 10/25/20 23:18 Insulin Glargine (Lantus Syringe) 16 unit NOON SQ 10/26/20 12:00 10/26/20 16:01 DC 10/26/20 12:00 Amylase/Lipase/ Protease (Zenpep 10,000) 2 cap DAILY PO 10/26/20 09:00 10/29/20 08:30 Meloxicam (Mobic) 15 mg HS PO 10/26/20 21:00 10/29/20 15:47 DC 10/28/20 20:05 Non-Formulary Medication (Insulin Lispro (Humalog)) 10 unit BID94 SQ 10/26/20 09:00 UNV Non-Formulary Medication (Insulin Lispro (Humalog)) 18 unit NOON SQ 10/26/20 12:00 UNV Nicotine (Nicoderm Cq 14mg Patch) 1 patch DAILY TD 10/26/20 09:00 10/29/20 08:32 Divalproex Sodium (Depakote Er) 1,000 mg HS PO 10/26/20 21:00 10/29/20 20:47 Divalproex Sodium (Depakote Er) 250 mg HS PO 10/26/20 21:00 10/29/20 20:47 Glucose (Insta-Glucose) 15 gm PRN Q15MIN PRN PO LOW BLOOD SUGAR 10/26/20 15:45 Insulin Glargine (Lantus Syringe) 8 unit NOON SQ 10/26/20 16:00 UNV Insulin Human Lispro (HumaLOG) 0-5 UNITS TIDWMEALS SQ 10/27/20 08:00 10/27/20 19:44 DC 10/27/20 17:29 Dextrose (Dextrose 50%-Water Syringe) 12.5 gm PRN Q15MIN PRN IV SEE COMMENTS 10/26/20 16:15 Insulin Human Lispro (HumaLOG) 0-5 UNITS QIDACHS SQ 10/27/20 21:00 10/28/20 11:58 DC 10/27/20 20:47 Insulin Glargine (Lantus Syringe) 10 unit QHS SQ 10/28/20 21:00 10/29/20 15:43 DC 10/28/20 20:07 Insulin Human Lispro (HumaLOG) 0-9 UNITS TIDWMEALS SQ 10/28/20 12:00 10/29/20 17:26 Dextrose (Dextrose 50%-Water Syringe) 12.5 gm PRN Q15MIN PRN IV SEE COMMENTS 10/28/20 12:00 UNV Insulin Human Lispro (HumaLOG) 12 units ONCE SQ 10/28/20 12:00 10/28/20 12:17 Insulin Glargine (Lantus Syringe) 15 unit QHS SQ 10/29/20 21:00 10/29/20 20:50 Current Medications Medications (Trade) Dose Ordered Sig/Jenise Route PRN Reason Start Time Stop Time Status Last Admin Dose Admin Insulin Glargine (Lantus Syringe) 15 unit QHS SQ 10/29/20 21:00 10/29/20 20:50 I have reviewed the current psychotropics carefully including drug interactions. Risk benefit ratio favors no change other than as noted in my dictated progress note. Diagnosis: Problems: (1) Schizoaffective disorder, bipolar type (2) Impulse control disorder, unspecified (3) Mild cognitive impairment (4) Anxiety disorder, unspecified (5) Bipolar disorder, current episode mixed, severe, with psychotic features JESSICA RAMESH MD Oct 29, 2020 21:57
--- NOTE | 2020-10-29 22:52 | NUR ---
Pt withdrawn to her room at shift change but had made her way to the day room when approached. Pt calm but forgetful. Pt cooperative with assessment and compliant with medications administered whole. No agitation or aggression noted thus far this shift.
[2020-10-30 05:51] VITALS: BP 144/85
--- NOTE | 2020-10-30 06:25 | PDOC ---
Exam Note: Jaren Note: This note is a late entry for 10/29/2020 covers elements not covered in my initial note. Subjective: The patient was seen individually in the evening of 10/29/2020 with Maryanne TOBIN, discussed and reviewed the chart. She slept 7-3/4 hours previous night. The patient continues to have fluctuating blood sugars. We will defer to Dr. Glez and she has some elevation of blood pressure. Meloxicam is discontinued. She has been calm and pleasant in the dayroom. We will check valproic acid level in the morning, then adjust the Depakote. Review of Systems: Ambulation impaired in wheelchair. No CV, , pulmonary, eye, ENT system symptoms on review. Mental Status Exam: The patient is oriented to herself and at times situation. Speech has some latency, coherent. Abstraction fair. Computation impaired. Language function intact. Attention span short. Memory is impaired, somewhat paranoid. No suicidal or homicidal ideation. Laboratory Data: Reviewed. Impression: Schizoaffective disorder bipolar type with psychotic features. Anxiety disorder unspecified. Impulse control disorder unspecified. Mild cognitive impairment. Plan: Continue current psychotropics. Assessment: Vital Signs/I&O: Vital Signs Date Time Temp Pulse Resp B/P (MAP) Pulse Ox O2 Delivery O2 Flow Rate FiO2 10/30/20 05:51 97.8 69 18 144/85 (104) 95 Room Air I & O 10/29/20 10/29/20 10/30/20 15:00 23:00 07:00 Intake Total 1020 ml 480 ml Balance 1020 ml 480 ml Labs: Laboratory Tests Test 10/29/20 07:38 10/29/20 11:25 10/29/20 16:29 10/29/20 19:15 Glucose (Fingerstick) 240 mg/dL (70-99) H 213 mg/dL (70-99) H 276 mg/dL (70-99) H 272 mg/dL (70-99) H Current Medications: Meds: Laboratory Tests Test 10/29/20 07:38 10/29/20 11:25 10/29/20 16:29 10/29/20 19:15 Glucose (Fingerstick) 240 mg/dL 213 mg/dL 276 mg/dL 272 mg/dL Current Medications Medications (Trade) Dose Ordered Sig/Jenise Route PRN Reason Start Time Stop Time Status Last Admin Dose Admin Acetaminophen (Tylenol) 650 mg PRN Q6HRS PRN PO MILD PAIN / TEMP > 100.3'F 10/25/20 19:00 Multi-Ingredient Ointment (Analgesic [place]) 1 cody PRN QID PRN TP MUSCLE PAIN 10/25/20 19:00 Al Hydroxide/Mg Hydroxide (Mylanta Plus Xs) 15 ml PRN AFTMEALHC PRN PO DYSPEPSIA 10/25/20 19:00 Magnesium Hydroxide (Milk Of Magnesia) 2,400 mg PRN QHS PRN PO CONSTIPATION 10/25/20 19:00 Insulin Human Lispro (HumaLOG) 0-7 UNITS TIDWMEALS SQ 10/26/20 08:00 10/26/20 16:01 DC 10/26/20 12:20 Dextrose (Dextrose 50%-Water Syringe) 12.5 gm PRN Q15MIN PRN IV SEE COMMENTS 10/25/20 22:15 10/26/20 16:01 DC Insulin Human Lispro (HumaLOG) 10 units BID94 SQ 10/26/20 09:00 10/26/20 16:01 DC 10/26/20 09:00 Insulin Human Lispro (HumaLOG) 18 units NOON SQ 10/26/20 12:00 10/26/20 16:01 DC 10/26/20 12:00 Acetaminophen (Tylenol) 1,000 mg DAILY PO 10/26/20 09:00 10/28/20 09:01 Buspirone HCl (Buspar) 10 mg BID PO 10/25/20 23:00 10/29/20 20:48 Furosemide (Lasix) 20 mg DAILY PO 10/26/20 09:00 10/29/20 08:31 Lorazepam (Ativan) 2 mg PRN Q4HRS PRN PO ANXIETY / AGITATION 10/25/20 23:00 10/26/20 11:20 Risperidone (RisperDAL) 0.75 mg QHS PO 10/25/20 23:00 10/29/20 20:49 Sertraline HCl (Zoloft) 100 mg DAILY PO 10/26/20 09:00 10/29/20 08:31 Amantadine HCl (Symmetrel) 100 mg HS PO 10/25/20 23:00 10/29/20 20:48 Non-Formulary Medication (Capsaicin/ Menthol (Salonpas Gel-Patch Hot)) 1 patch DAILY TP 10/26/20 09:00 UNV Divalproex Sodium (Depakote) 1,250 mg HS PO 10/25/20 23:00 10/26/20 13:06 DC 10/25/20 23:18 Insulin Glargine (Lantus Syringe) 16 unit NOON SQ 10/26/20 12:00 10/26/20 16:01 DC 10/26/20 12:00 Amylase/Lipase/ Protease (Zenpep 10,000) 2 cap DAILY PO 10/26/20 09:00 10/29/20 08:30 Meloxicam (Mobic) 15 mg HS PO 10/26/20 21:00 10/29/20 15:47 DC 10/28/20 20:05 Non-Formulary Medication (Insulin Lispro (Humalog)) 10 unit BID94 SQ 10/26/20 09:00 UNV Non-Formulary Medication (Insulin Lispro (Humalog)) 18 unit NOON SQ 10/26/20 12:00 UNV Nicotine (Nicoderm Cq 14mg Patch) 1 patch DAILY TD 10/26/20 09:00 10/29/20 08:32 Divalproex Sodium (Depakote Er) 1,000 mg HS PO 10/26/20 21:00 10/29/20 20:47 Divalproex Sodium (Depakote Er) 250 mg HS PO 10/26/20 21:00 10/29/20 20:47 Glucose (Insta-Glucose) 15 gm PRN Q15MIN PRN PO LOW BLOOD SUGAR 10/26/20 15:45 Insulin Glargine (Lantus Syringe) 8 unit NOON SQ 10/26/20 16:00 UNV Insulin Human Lispro (HumaLOG) 0-5 UNITS TIDWMEALS SQ 10/27/20 08:00 10/27/20 19:44 DC 10/27/20 17:29 Dextrose (Dextrose 50%-Water Syringe) 12.5 gm PRN Q15MIN PRN IV SEE COMMENTS 10/26/20 16:15 Insulin Human Lispro (HumaLOG) 0-5 UNITS QIDACHS SQ 10/27/20 21:00 10/28/20 11:58 DC 10/27/20 20:47 Insulin Glargine (Lantus Syringe) 10 unit QHS SQ 10/28/20 21:00 10/29/20 15:43 DC 10/28/20 20:07 Insulin Human Lispro (HumaLOG) 0-9 UNITS TIDWMEALS SQ 10/28/20 12:00 10/29/20 17:26 Dextrose (Dextrose 50%-Water Syringe) 12.5 gm PRN Q15MIN PRN IV SEE COMMENTS 10/28/20 12:00 UNV Insulin Human Lispro (HumaLOG) 12 units ONCE SQ 10/28/20 12:00 10/28/20 12:17 Insulin Glargine (Lantus Syringe) 15 unit QHS SQ 10/29/20 21:00 10/29/20 20:50 Current Medications Medications (Trade) Dose Ordered Sig/Jenise Route PRN Reason Start Time Stop Time Status Last Admin Dose Admin Insulin Glargine (Lantus Syringe) 15 unit QHS SQ 10/29/20 21:00 10/29/20 20:50 I have reviewed the current psychotropics carefully including drug interactions. Risk benefit ratio favors no change other than as noted in my dictated progress note. Diagnosis: Problems: (1) Schizoaffective disorder, bipolar type (2) Impulse control disorder, unspecified (3) Mild cognitive impairment (4) Anxiety disorder, unspecified (5) Bipolar disorder, current episode mixed, severe, with psychotic features JESSICA RAMESH MD Oct 30, 2020 06:25
[2020-10-30 08:05] LABS: ALBUMIN 3.2 g/dL (3.4-5.0); ALBUMIN/GLOBULIN RATIO 0.9 (1.0-1.7); CALCIUM 8.7 mg/dL (8.5-10.1); CREATININE 0.9 mg/dL (0.6-1.0); GFR 77.5; POTASSIUM 4.2 mmol/L (3.5-5.1); TOTAL BILIRUBIN 0.2 mg/dL (0.2-1.0); TOTAL PROTEIN 6.7 g/dL (6.4-8.2)
[2020-10-30 08:06] LABS: BASO % 1 % (0-3); EOS # 0.1 x10^3/uL (0.0-0.7); EOS % 1 % (0-3); HEMATOCRIT 33.7 % (36.0-47.0); HEMOGLOBIN 11.5 g/dL (12.0-15.5); LYMPH # 2.3 x10^3/uL (1.0-4.8); LYMPH % 47 % (24-48); MEAN CORPUSCULAR HEMOGLOBIN 32 pg (25-35); MEAN CORPUSCULAR HGB CONC 34 g/dL (31-37); MEAN CORPUSCULAR VOLUME 92 fL (79-100); MONO # 0.4 x10^3/uL (0.0-1.1); MONO % 8 % (0-9); NEUT # 2.1 x10^3uL (1.8-7.7); NEUT % 43 % (31-73); PLATELET COUNT 220 x10^3/uL (140-400); RED BLOOD COUNT 3.65 x10^6/uL (3.50-5.40); RED CELL DISTRIBUTION WIDTH 14.6 % (11.5-14.5); WHITE BLOOD COUNT 4.8 x10^3/uL (4.0-11.0)
[2020-10-30 08:21] LABS: VAL ACID 55 mcg/mL (50-100)
[2020-10-30] MEDS: busPIRone 10 MG TABLET. PO SCH ×2 (08:24→20:04)
[2020-10-30] MEDS: ACETAMINOPHEN 500 MG TABLET PO SCH (08:24)
[2020-10-30] MEDS: LIPASE/PROTEAS/AMYLAS 10/32/42 CAPSULE.DR. PO SCH (08:24)
[2020-10-30] MEDS: SERTRALINE 100 MG TABLET. PO SCH (08:24)
[2020-10-30] MEDS: FUROSEMIDE 20 MG TABLET PO SCH (08:25)
[2020-10-30] MEDS: NICOTINE 14MG PATCH. TD SCH (08:25)
[2020-10-30] MEDS: INSULIN LISPRO 300 UNITS/3 ML VIAL. SQ SCH ×3 (08:31→17:23)
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
[2020-10-30 15:49] VITALS: BP 159/85
[2020-10-30] MEDS: INSULIN GLARGINE SYRINGE. SQ SCH (20:02)
[2020-10-30] MEDS: DIVALPROEX ER 250 MG TAB.ER.24H. PO SCH (20:04)
[2020-10-30] MEDS: DIVALPROEX ER 500 MG TAB.ER.24H PO SCH (20:04)
[2020-10-30] MEDS: AMANTADINE HCL 100 MG PO SCH (20:04)
[2020-10-30] MEDS: LORazepam 1 MG TABLET PO PRN (20:05)
[2020-10-30] MEDS: risperiDONE 0.5 MG TABLET. PO SCH (20:05)
--- NOTE | 2020-10-30 22:00 | PDOC ---
Exam Note: Jaren Note: Please also refer to the separate dictated note~for this date of service dictated separately.~Patient seen individually. Discussed the patient with Nursing staff reviewed the chart.~Reviewed interim history and current functioning. Reviewed vital signs,~Labs/ Radiology~and current medications noted below. Continue current treatment with the changes noted in the dictated addendum note Assessment: Vital Signs/I&O: Vital Signs Date Time Temp Pulse Resp B/P (MAP) Pulse Ox O2 Delivery O2 Flow Rate FiO2 10/30/20 15:49 97.4 76 19 159/85 (109) 100 Room Air I & O 10/29/20 10/29/20 10/30/20 15:00 23:00 07:00 Intake Total 1020 ml 480 ml Balance 1020 ml 480 ml Labs: Laboratory Tests Test 10/30/20 07:08 10/30/20 07:41 10/30/20 11:37 10/30/20 16:06 White Blood Count 4.8 x10^3/uL (4.0-11.0) Red Blood Count 3.65 x10^6/uL (3.50-5.40) Hemoglobin 11.5 g/dL (12.0-15.5) L Hematocrit 33.7 % (36.0-47.0) L Mean Corpuscular Volume 92 fL (79-100) Mean Corpuscular Hemoglobin 32 pg (25-35) Mean Corpuscular Hemoglobin Concent 34 g/dL (31-37) Red Cell Distribution Width 14.6 % (11.5-14.5) H Platelet Count 220 x10^3/uL (140-400) Neutrophils (%) (Auto) 43 % (31-73) Lymphocytes (%) (Auto) 47 % (24-48) Monocytes (%) (Auto) 8 % (0-9) Eosinophils (%) (Auto) 1 % (0-3) Basophils (%) (Auto) 1 % (0-3) Neutrophils # (Auto) 2.1 x10^3uL (1.8-7.7) Lymphocytes # (Auto) 2.3 x10^3/uL (1.0-4.8) Monocytes # (Auto) 0.4 x10^3/uL (0.0-1.1) Eosinophils # (Auto) 0.1 x10^3/uL (0.0-0.7) Basophils # (Auto) 0.0 x10^3/uL (0.0-0.2) Sodium Level 146 mmol/L (136-145) H Potassium Level 4.2 mmol/L (3.5-5.1) Chloride Level 109 mmol/L (98-107) H Carbon Dioxide Level 28 mmol/L (21-32) Anion Gap 9 (6-14) Blood Urea Nitrogen 20 mg/dL (7-20) Creatinine 0.9 mg/dL (0.6-1.0) Estimated GFR (Cockcroft-Gault) 77.5 BUN/Creatinine Ratio 22 (6-20) H Glucose Level 157 mg/dL (70-99) H Calcium Level 8.7 mg/dL (8.5-10.1) Total Bilirubin 0.2 mg/dL (0.2-1.0) Aspartate Amino Transferase (AST) 14 U/L (15-37) L Alanine Aminotransferase (ALT) 24 U/L (14-59) Alkaline Phosphatase 143 U/L (46-116) H Total Protein 6.7 g/dL (6.4-8.2) Albumin 3.2 g/dL (3.4-5.0) L Albumin/Globulin Ratio 0.9 (1.0-1.7) L Valproic Acid Level 55 mcg/mL (50-100) Valproic Acid Last Dose Date 10/29/20 Valproic Acid Last Dose Time 2100 Glucose (Fingerstick) 161 mg/dL (70-99) H 346 mg/dL (70-99) H 336 mg/dL (70-99) H Test 10/30/20 19:21 Glucose (Fingerstick) 183 mg/dL (70-99) H Current Medications: Meds: Laboratory Tests Test 10/30/20 07:08 10/30/20 07:41 10/30/20 11:37 10/30/20 16:06 White Blood Count 4.8 x10^3/uL Red Blood Count 3.65 x10^6/uL Hemoglobin 11.5 g/dL Hematocrit 33.7 % Mean Corpuscular Volume 92 fL Mean Corpuscular Hemoglobin 32 pg Mean Corpuscular Hemoglobin Concent 34 g/dL Red Cell Distribution Width 14.6 % Platelet Count 220 x10^3/uL Neutrophils (%) (Auto) 43 % Lymphocytes (%) (Auto) 47 % Monocytes (%) (Auto) 8 % Eosinophils (%) (Auto) 1 % Basophils (%) (Auto) 1 % Neutrophils # (Auto) 2.1 x10^3uL Lymphocytes # (Auto) 2.3 x10^3/uL Monocytes # (Auto) 0.4 x10^3/uL Eosinophils # (Auto) 0.1 x10^3/uL Basophils # (Auto) 0.0 x10^3/uL Sodium Level 146 mmol/L Potassium Level 4.2 mmol/L Chloride Level 109 mmol/L Carbon Dioxide Level 28 mmol/L Anion Gap 9 Blood Urea Nitrogen 20 mg/dL Creatinine 0.9 mg/dL Estimated GFR (Cockcroft-Gault) 77.5 BUN/Creatinine Ratio 22 Glucose Level 157 mg/dL Calcium Level 8.7 mg/dL Total Bilirubin 0.2 mg/dL Aspartate Amino Transf (AST/SGOT) 14 U/L Alanine Aminotransferase (ALT/SGPT) 24 U/L Alkaline Phosphatase 143 U/L Total Protein 6.7 g/dL Albumin 3.2 g/dL Albumin/Globulin Ratio 0.9 Valproic Acid (Depakene) Level 55 mcg/mL Valproic Acid Last Dose Date 10/29/20 Valproic Acid Last Dose Time 2100 Glucose (Fingerstick) 161 mg/dL 346 mg/dL 336 mg/dL Test 10/30/20 19:21 Glucose (Fingerstick) 183 mg/dL Current Medications Medications (Trade) Dose Ordered Sig/Jenise Route PRN Reason Start Time Stop Time Status Last Admin Dose Admin Acetaminophen (Tylenol) 650 mg PRN Q6HRS PRN PO MILD PAIN / TEMP > 100.3'F 10/25/20 19:00 Multi-Ingredient Ointment (Analgesic [place]) 1 cody PRN QID PRN TP MUSCLE PAIN 10/25/20 19:00 Al Hydroxide/Mg Hydroxide (Mylanta Plus Xs) 15 ml PRN AFTMEALHC PRN PO DYSPEPSIA 10/25/20 19:00 Magnesium Hydroxide (Milk Of Magnesia) 2,400 mg PRN QHS PRN PO CONSTIPATION 10/25/20 19:00 Insulin Human Lispro (HumaLOG) 0-7 UNITS TIDWMEALS SQ 10/26/20 08:00 10/26/20 16:01 DC 10/26/20 12:20 Dextrose (Dextrose 50%-Water Syringe) 12.5 gm PRN Q15MIN PRN IV SEE COMMENTS 10/25/20 22:15 10/26/20 16:01 CT Insulin Human Lispro (HumaLOG) 10 units BID94 SQ 10/26/20 09:00 10/26/20 16:01 DC 10/26/20 09:00 Insulin Human Lispro (HumaLOG) 18 units NOON SQ 10/26/20 12:00 10/26/20 16:01 DC 10/26/20 12:00 Acetaminophen (Tylenol) 1,000 mg DAILY PO 10/26/20 09:00 10/30/20 08:24 Buspirone HCl (Buspar) 10 mg BID PO 10/25/20 23:00 10/30/20 20:04 Furosemide (Lasix) 20 mg DAILY PO 10/26/20 09:00 10/30/20 08:25 Lorazepam (Ativan) 2 mg PRN Q4HRS PRN PO ANXIETY / AGITATION 10/25/20 23:00 10/30/20 20:05 Risperidone (RisperDAL) 0.75 mg QHS PO 10/25/20 23:00 10/30/20 20:05 Sertraline HCl (Zoloft) 100 mg DAILY PO 10/26/20 09:00 10/30/20 08:24 Amantadine HCl (Symmetrel) 100 mg HS PO 10/25/20 23:00 10/30/20 20:04 Non-Formulary Medication (Capsaicin/ Menthol (Salonpas Gel-Patch Hot)) 1 patch DAILY TP 10/26/20 09:00 UNV Divalproex Sodium (Depakote) 1,250 mg HS PO 10/25/20 23:00 10/26/20 13:06 DC 10/25/20 23:18 Insulin Glargine (Lantus Syringe) 16 unit NOON SQ 10/26/20 12:00 10/26/20 16:01 DC 10/26/20 12:00 Amylase/Lipase/ Protease (Zenpep 10,000) 2 cap DAILY PO 10/26/20 09:00 10/30/20 08:24 Meloxicam (Mobic) 15 mg HS PO 10/26/20 21:00 10/29/20 15:47 DC 10/28/20 20:05 Non-Formulary Medication (Insulin Lispro (Humalog)) 10 unit BID94 SQ 10/26/20 09:00 UNV Non-Formulary Medication (Insulin Lispro (Humalog)) 18 unit NOON SQ 10/26/20 12:00 UNV Nicotine (Nicoderm Cq 14mg Patch) 1 patch DAILY TD 10/26/20 09:00 10/30/20 08:25 Divalproex Sodium (Depakote Er) 1,000 mg HS PO 10/26/20 21:00 10/30/20 20:04 Divalproex Sodium (Depakote Er) 250 mg HS PO 10/26/20 21:00 10/30/20 20:04 Glucose (Insta-Glucose) 15 gm PRN Q15MIN PRN PO LOW BLOOD SUGAR 10/26/20 15:45 Insulin Glargine (Lantus Syringe) 8 unit NOON SQ 10/26/20 16:00 UNV Insulin Human Lispro (HumaLOG) 0-5 UNITS TIDWMEALS SQ 10/27/20 08:00 10/27/20 19:44 DC 10/27/20 17:29 Dextrose (Dextrose 50%-Water Syringe) 12.5 gm PRN Q15MIN PRN IV SEE COMMENTS 10/26/20 16:15 Insulin Human Lispro (HumaLOG) 0-5 UNITS QIDACHS SQ 10/27/20 21:00 10/28/20 11:58 DC 10/27/20 20:47 Insulin Glargine (Lantus Syringe) 10 unit QHS SQ 10/28/20 21:00 10/29/20 15:43 DC 10/28/20 20:07 Insulin Human Lispro (HumaLOG) 0-9 UNITS TIDWMEALS SQ 10/28/20 12:00 10/30/20 17:23 Dextrose (Dextrose 50%-Water Syringe) 12.5 gm PRN Q15MIN PRN IV SEE COMMENTS 10/28/20 12:00 UNV Insulin Human Lispro (HumaLOG) 12 units ONCE SQ 10/28/20 12:00 10/28/20 12:17 Insulin Glargine (Lantus Syringe) 15 unit QHS SQ 10/29/20 21:00 7/6/21 20:02 I have reviewed the current psychotropics carefully including drug interactions. Risk benefit ratio favors no change other than as noted in my dictated progress note. Diagnosis: Problems: (1) Schizoaffective disorder, bipolar type (2) Impulse control disorder, unspecified (3) Mild cognitive impairment (4) Anxiety disorder, unspecified (5) Bipolar disorder, current episode mixed, severe, with psychotic features JESSICA RAMESH MD Oct 30, 2020 22:00
--- NOTE | 2020-10-30 23:01 | NUR ---
Pt withdrawn to room, lying in bed when approached. Pt anxious and tearful this evening, wanting to know what she is doing here and when she can go home. I spent time with pt 1:1 in order to provide reassurance and reorientation with little effect. Pt cooperative with assessment and compliant with medications administered whole. PRN Ativan administered for anxiety.
[2020-10-31 05:54] VITALS: BP 158/86
[2020-10-31] MEDS: INSULIN LISPRO 300 UNITS/3 ML VIAL. SQ SCH ×3 (08:00→17:00)
--- NOTE | 2020-10-31 08:49 | PDOC ---
Exam Note: Jaren Note: This note is a late entry for 10/30/2020 covers elements not covered in my initial note. Subjective: The patient was seen individually in the evening of 10/30/2020 with Tru TOBIN, discussed and reviewed the chart. She slept 8-3/4 hours previous night. The patient has been calm, alert today but as I met with her in the evening in her room she was quite depressed, tearful with ongoing mood lability. Valproic acid level today is 55 therapeutic. Review of Systems: Ambulation impaired in wheelchair. No CV, , pulmonary, eye, ENT system symptoms on review. Mental Status Exam: The patient is oriented to herself and at times situation. She is quite tearful, loud, crying, unable to explain to me the reason for her tearfulness. Speech has some latency, coherent. Abstraction fair. Computation impaired. Language function intact. Attention span short. Mood and affect remains labile. Laboratory Data: Reviewed. Impression: Schizoaffective disorder bipolar type with psychotic features. Anxiety disorder unspecified. Impulse control disorder unspecified. Mild cognitive impairment. Plan: Continue current psychotropics. Valproic acid level today is therapeutic at 55. Maintain psychotropics from initial note. We may consider increasing Zoloft or augmenting with Wellbutrin if mood lability, depression persists. Assessment: Vital Signs/I&O: Vital Signs Date Time Temp Pulse Resp B/P (MAP) Pulse Ox O2 Delivery O2 Flow Rate FiO2 10/31/20 05:54 97.6 70 18 158/86 (110) 98 Room Air I & O0 10/30/20 10/30/20 10/31/20 15:00 23:00 07:00 Intake Total 960 ml 120 ml 120 ml Balance 960 ml 120 ml 120 ml Labs: Laboratory Tests Test 10/30/20 11:37 10/30/20 16:06 10/30/20 19:21 10/31/20 07:52 Glucose (Fingerstick) 346 mg/dL (70-99) H 336 mg/dL (70-99) H 183 mg/dL (70-99) H 177 mg/dL (70-99) H Current Medications: Meds: Laboratory Tests Test 10/30/20 11:37 10/30/20 16:06 10/30/20 19:21 10/31/20 07:52 Glucose (Fingerstick) 346 mg/dL 336 mg/dL 183 mg/dL 177 mg/dL Current Medications Medications (Trade) Dose Ordered Sig/Jenise Route PRN Reason Start Time Stop Time Status Last Admin Dose Admin Acetaminophen (Tylenol) 650 mg PRN Q6HRS PRN PO MILD PAIN / TEMP > 100.3'F 10/25/20 19:00 Multi-Ingredient Ointment (Analgesic [place]) 1 cody PRN QID PRN TP MUSCLE PAIN 10/25/20 19:00 Al Hydroxide/Mg Hydroxide (Mylanta Plus Xs) 15 ml PRN AFTMEALHC PRN PO DYSPEPSIA 10/25/20 19:00 Magnesium Hydroxide (Milk Of Magnesia) 2,400 mg PRN QHS PRN PO CONSTIPATION 10/25/20 19:00 Insulin Human Lispro (HumaLOG) 0-7 UNITS TIDWMEALS SQ 10/26/20 08:00 10/26/20 16:01 DC 10/26/20 12:20 Dextrose (Dextrose 50%-Water Syringe) 12.5 gm PRN Q15MIN PRN IV SEE COMMENTS 10/25/20 22:15 10/26/20 16:01 DC Insulin Human Lispro (HumaLOG) 10 units BID94 SQ 10/26/20 09:00 10/26/20 16:01 DC 10/26/20 09:00 Insulin Human Lispro (HumaLOG) 18 units NOON SQ 10/26/20 12:00 10/26/20 16:01 DC 10/26/20 12:00 Acetaminophen (Tylenol) 1,000 mg DAILY PO 10/26/20 09:00 10/30/20 08:24 Buspirone HCl (Buspar) 10 mg BID PO 10/25/20 23:00 10/30/20 20:04 Furosemide (Lasix) 20 mg DAILY PO 10/26/20 09:00 10/30/20 08:25 Lorazepam (Ativan) 2 mg PRN Q4HRS PRN PO ANXIETY / AGITATION 10/25/20 23:00 10/30/20 20:05 Risperidone (RisperDAL) 0.75 mg QHS PO 10/25/20 23:00 10/30/20 20:05 Sertraline HCl (Zoloft) 100 mg DAILY PO 10/26/20 09:00 10/30/20 08:24 Amantadine HCl (Symmetrel) 100 mg HS PO 10/25/20 23:00 10/30/20 20:04 Non-Formulary Medication (Capsaicin/ Menthol (Salonpas Gel-Patch Hot)) 1 patch DAILY TP 10/26/20 09:00 UNV Divalproex Sodium (Depakote) 1,250 mg HS PO 10/25/20 23:00 10/26/20 13:06 DC 10/25/20 23:18 Insulin Glargine (Lantus Syringe) 16 unit NOON SQ 10/26/20 12:00 10/26/20 16:01 DC 10/26/20 12:00 Amylase/Lipase/ Protease (Zenpep 10,000) 2 cap DAILY PO 10/26/20 09:00 10/30/20 08:24 Meloxicam (Mobic) 15 mg HS PO 10/26/20 21:00 10/29/20 15:47 DC 10/28/20 20:05 Non-Formulary Medication (Insulin Lispro (Humalog)) 10 unit BID94 SQ 10/26/20 09:00 UNV Non-Formulary Medication (Insulin Lispro (Humalog)) 18 unit NOON SQ 10/26/20 12:00 UNV Nicotine (Nicoderm Cq 14mg Patch) 1 patch DAILY TD 10/26/20 09:00 10/30/20 08:25 Divalproex Sodium (Depakote Er) 1,000 mg HS PO 10/26/20 21:00 10/30/20 20:04 Divalproex Sodium (Depakote Er) 250 mg HS PO 10/26/20 21:00 10/30/20 20:04 Glucose (Insta-Glucose) 15 gm PRN Q15MIN PRN PO LOW BLOOD SUGAR 10/26/20 15:45 Insulin Glargine (Lantus Syringe) 8 unit NOON SQ 10/26/20 16:00 UNV Insulin Human Lispro (HumaLOG) 0-5 UNITS TIDWMEALS SQ 10/27/20 08:00 10/27/20 19:44 DC 10/27/20 17:29 Dextrose (Dextrose 50%-Water Syringe) 12.5 gm PRN Q15MIN PRN IV SEE COMMENTS 10/26/20 16:15 Insulin Human Lispro (HumaLOG) 0-5 UNITS QIDACHS SQ 10/27/20 21:00 10/28/20 11:58 DC 10/27/20 20:47 Insulin Glargine (Lantus Syringe) 10 unit QHS SQ 10/28/20 21:00 10/29/20 15:43 DC 10/28/20 20:07 Insulin Human Lispro (HumaLOG) 0-9 UNITS TIDWMEALS SQ 10/28/20 12:00 10/30/20 17:23 Dextrose (Dextrose 50%-Water Syringe) 12.5 gm PRN Q15MIN PRN IV SEE COMMENTS 10/28/20 12:00 UNV Insulin Human Lispro (HumaLOG) 12 units ONCE SQ 10/28/20 12:00 10/28/20 12:17 Insulin Glargine (Lantus Syringe) 15 unit QHS SQ 10/29/20 21:00 10/30/20 20:02 I have reviewed the current psychotropics carefully including drug interactions. Risk benefit ratio favors no change other than as noted in my dictated progress note. Diagnosis: Problems: (1) Schizoaffective disorder, bipolar type (2) Impulse control disorder, unspecified (3) Mild cognitive impairment (4) Anxiety disorder, unspecified (5) Bipolar disorder, current episode mixed, severe, with psychotic features JESSICA RAMESH MD Oct 31, 2020 08:49
[2020-10-31] MEDS: LIPASE/PROTEAS/AMYLAS 10/32/42 CAPSULE.DR. PO SCH (12:32)
[2020-10-31] MEDS: SERTRALINE 100 MG TABLET. PO SCH (12:32)
[2020-10-31] MEDS: ACETAMINOPHEN 500 MG TABLET PO SCH (12:33)
[2020-10-31] MEDS: busPIRone 10 MG TABLET. PO SCH (12:33)
[2020-10-31] MEDS: FUROSEMIDE 20 MG TABLET PO SCH (12:33)
[2020-10-31] MEDS: NICOTINE 14MG PATCH. TD SCH (12:33)
[2020-10-31 16:17] VITALS: BP 164/74
[2020-10-31] MEDS: DIVALPROEX ER 250 MG TAB.ER.24H. PO SCH (20:38)
[2020-10-31] MEDS: DIVALPROEX ER 500 MG TAB.ER.24H PO SCH (20:39)
[2020-10-31] MEDS ORDERED: risperiDONE 1 MG TABLET. PO SCH (21:00)
[2020-10-31] MEDS: AMANTADINE HCL 100 MG PO SCH (21:00)
[2020-10-31] MEDS: INSULIN GLARGINE SYRINGE. SQ SCH (21:05)
--- NOTE | 2020-10-31 21:41 | PDOC ---
Exam Note: Jaren Note: Please also refer to the separate dictated note~for this date of service dictated separately.~Patient seen individually. Discussed the patient with Nursing staff reviewed the chart.~Reviewed interim history and current functioning. Reviewed vital signs,~Labs/ Radiology~and current medications noted below. Continue current treatment with the changes noted in the dictated addendum note Assessment: Vital Signs/I&O: Vital Signs Date Time Temp Pulse Resp B/P (MAP) Pulse Ox O2 Delivery O2 Flow Rate FiO2 10/31/20 16:17 98.4 98 18 164/74 (104) 97 10/31/20 05:54 Room Air I & O 10/30/20 10/30/20 10/31/20 15:00 23:00 07:00 Intake Total 960 ml 120 ml 120 ml Balance 960 ml 120 ml 120 ml Labs: Laboratory Tests Test 10/31/20 07:52 10/31/20 12:07 10/31/20 16:40 10/31/20 19:11 Glucose (Fingerstick) 177 mg/dL (70-99) H 147 mg/dL (70-99) H 313 mg/dL (70-99) H 265 mg/dL (70-99) H Current Medications: Meds: Laboratory Tests Test 10/31/20 07:52 10/31/20 12:07 10/31/20 16:40 10/31/20 19:11 Glucose (Fingerstick) 177 mg/dL 147 mg/dL 313 mg/dL 265 mg/dL Current Medications Medications (Trade) Dose Ordered Sig/Jenise Route PRN Reason Start Time Stop Time Status Last Admin Dose Admin Acetaminophen (Tylenol) 650 mg PRN Q6HRS PRN PO MILD PAIN / TEMP > 100.3'F 10/25/20 19:00 Multi-Ingredient Ointment (Analgesic [place]) 1 cody PRN QID PRN TP MUSCLE PAIN 10/25/20 19:00 Al Hydroxide/Mg Hydroxide (Mylanta Plus Xs) 15 ml PRN AFTMEALHC PRN PO DYSPEPSIA 10/25/20 19:00 Magnesium Hydroxide (Milk Of Magnesia) 2,400 mg PRN QHS PRN PO CONSTIPATION 10/25/20 19:00 Insulin Human Lispro (HumaLOG) 0-7 UNITS TIDWMEALS SQ 10/26/20 08:00 10/26/20 16:01 DC 10/26/20 12:20 Dextrose (Dextrose 50%-Water Syringe) 12.5 gm PRN Q15MIN PRN IV SEE COMMENTS 10/25/20 22:15 10/26/20 16:01 DC Insulin Human Lispro (HumaLOG) 10 units BID94 SQ 10/26/20 09:00 10/26/20 16:01 DC 10/26/20 09:00 Insulin Human Lispro (HumaLOG) 18 units NOON SQ 10/26/20 12:00 10/26/20 16:01 DC 10/26/20 12:00 Acetaminophen (Tylenol) 1,000 mg DAILY PO 10/26/20 09:00 10/31/20 12:33 Buspirone HCl (Buspar) 10 mg BID PO 10/25/20 23:00 10/31/20 17:02 DC 10/31/20 12:33 Furosemide (Lasix) 20 mg DAILY PO 10/26/20 09:00 10/31/20 12:33 Lorazepam (Ativan) 2 mg PRN Q4HRS PRN PO ANXIETY / AGITATION 10/25/20 23:00 10/30/20 20:05 Risperidone (RisperDAL) 0.75 mg QHS PO 10/25/20 23:00 10/31/20 17:02 DC 10/30/20 20:05 Sertraline HCl (Zoloft) 100 mg DAILY PO 10/26/20 09:00 10/31/20 12:32 Amantadine HCl (Symmetrel) 100 mg HS PO 10/25/20 23:00 10/31/20 21:00 Non-Formulary Medication (Capsaicin/ Menthol (Salonpas Gel-Patch Hot)) 1 patch DAILY TP 10/26/20 09:00 UNV Divalproex Sodium (Depakote) 1,250 mg HS PO 10/25/20 23:00 10/26/20 13:06 DC 10/25/20 23:18 Insulin Glargine (Lantus Syringe) 16 unit NOON SQ 10/26/20 12:00 10/26/20 16:01 DC 10/26/20 12:00 Amylase/Lipase/ Protease (Zenpep 10,000) 2 cap DAILY PO 10/26/20 09:00 10/31/20 12:32 Meloxicam (Mobic) 15 mg HS PO 10/26/20 21:00 10/29/20 15:47 DC 10/28/20 20:05 Non-Formulary Medication (Insulin Lispro (Humalog)) 10 unit BID94 SQ 10/26/20 09:00 UNV Non-Formulary Medication (Insulin Lispro (Humalog)) 18 unit NOON SQ 10/26/20 12:00 UNV Nicotine (Nicoderm Cq 14mg Patch) 1 patch DAILY TD 10/26/20 09:00 10/31/20 12:33 Divalproex Sodium (Depakote Er) 1,000 mg HS PO 10/26/20 21:00 10/31/20 20:39 Divalproex Sodium (Depakote Er) 250 mg HS PO 10/26/20 21:00 10/31/20 20:38 Glucose (Insta-Glucose) 15 gm PRN Q15MIN PRN PO LOW BLOOD SUGAR 10/26/20 15:45 Insulin Glargine (Lantus Syringe) 8 unit NOON SQ 10/26/20 16:00 UNV Insulin Human Lispro (HumaLOG) 0-5 UNITS TIDWMEALS SQ 10/27/20 08:00 10/27/20 19:44 DC 10/27/20 17:29 Dextrose (Dextrose 50%-Water Syringe) 12.5 gm PRN Q15MIN PRN IV SEE COMMENTS 10/26/20 16:15 Insulin Human Lispro (HumaLOG) 0-5 UNITS QIDACHS SQ 10/27/20 21:00 10/28/20 11:58 DC 10/27/20 20:47 Insulin Glargine (Lantus Syringe) 10 unit QHS SQ 10/28/20 21:00 10/29/20 15:43 DC 10/28/20 20:07 Insulin Human Lispro (HumaLOG) 0-9 UNITS TIDWMEALS SQ 10/28/20 12:00 10/30/20 17:23 Dextrose (Dextrose 50%-Water Syringe) 12.5 gm PRN Q15MIN PRN IV SEE COMMENTS 10/28/20 12:00 UNV Insulin Human Lispro (HumaLOG) 12 units ONCE SQ 10/28/20 12:00 10/28/20 12:17 Insulin Glargine (Lantus Syringe) 15 unit QHS SQ 10/29/20 21:00 10/31/20 21:05 Risperidone (RisperDAL) 1 mg QHS PO 10/31/20 21:00 10/31/20 20:42 Bupropion HCl (Wellbutrin Xl) 150 mg DAILY PO 11/01/20 09:00 Current Medications Medications (Trade) Dose Ordered Sig/Jenise Route PRN Reason Start Time Stop Time Status Last Admin Dose Admin Risperidone (RisperDAL) 1 mg QHS PO 10/31/20 21:00 10/31/20 20:42 I have reviewed the current psychotropics carefully including drug interactions. Risk benefit ratio favors no change other than as noted in my dictated progress note. Diagnosis: Problems: (1) Schizoaffective disorder, bipolar type (2) Impulse control disorder, unspecified (3) Mild cognitive impairment (4) Anxiety disorder, unspecified (5) Bipolar disorder, current episode mixed, severe, with psychotic features JESSICA RAMESH MD Oct 31, 2020 21:41
--- NOTE | 2020-11-01 00:09 | NUR ---
Pt withdrawn to room, lying in bed when approached. Pt calm with a flat, depressed affect and very little interaction during encounter. Pt cooperative with assessment and compliant with medications administered whole. No anxiety or aggression noted thus far this shift,.
[2020-11-01 05:55] VITALS: BP 153/89
--- NOTE | 2020-11-01 06:30 | PDOC ---
Exam Note: Jaren Note: This note is a late entry for 10/31/2020 covers elements not covered in my initial note. Subjective: The patient was seen individually in the evening of 10/31/2020 with Tru TOBIN, discussed and reviewed the chart. She slept 7 hours previous night. The patient refused to get up from her bed, till noon time. She was later swinging at staff, incontinent and staff tried to assist her with changes she was hitting put at staff member, kicking them. Review of Systems: Ambulation impaired in wheelchair. No CV, , pulmonary, eye, ENT system symptoms on review. Mental Status Exam: The patient is oriented to herself and at times situation. I met with her in her room. She was initially lying in bed, her face turned over towards the wall but turned around as I met with her, somewhat tearful, anxious with ongoing mood lability. Speech has some latency, coherent. Abstraction fair. Computation impaired. Language function intact. Attention span short. Mood and affect remains labile. Laboratory Data: Reviewed. Valproic acid level is 55, therapeutic. Impression: Schizoaffective disorder bipolar type with psychotic features. Anxiety disorder unspecified. Impulse control disorder unspecified. Mild cognitive impairment. Plan: We will go ahead and stop BuSpar 10 mg b.i.d. Maintain Zoloft 100 mg a day and augment this with Wellbutrin XL 150 mg a day. Given her ongoing psychotic symptoms, paranoia, increase Risperdal from 0.75 mg h.s. to 1 mg h.s. Make further adjustments in psychotropics as clinically indicated. Continue Depakote unchanged. Level therapeutic at 55. Assessment: Vital Signs/I&O: Vital Signs Date Time Temp Pulse Resp B/P (MAP) Pulse Ox O2 Delivery O2 Flow Rate FiO2 11/01/20 05:55 96.8 66 20 153/89 (110) 99 Room Air I & O 10/31/20 10/31/20 11/01/20 15:00 23:00 07:00 Intake Total 300 ml 120 ml Balance 300 ml 120 ml Labs: Laboratory Tests Test 10/31/20 07:52 10/31/20 12:07 10/31/20 16:40 10/31/20 19:11 Glucose (Fingerstick) 177 mg/dL (70-99) H 147 mg/dL (70-99) H 313 mg/dL (70-99) H 265 mg/dL (70-99) H Current Medications: Meds: Laboratory Tests Test 10/31/20 07:52 10/31/20 12:07 10/31/20 16:40 10/31/20 19:11 Glucose (Fingerstick) 177 mg/dL 147 mg/dL 313 mg/dL 265 mg/dL Current Medications Medications (Trade) Dose Ordered Sig/Jenise Route PRN Reason Start Time Stop Time Status Last Admin Dose Admin Acetaminophen (Tylenol) 650 mg PRN Q6HRS PRN PO MILD PAIN / TEMP > 100.3'F 10/25/20 19:00 Multi-Ingredient Ointment (Analgesic [place]) 1 cody PRN QID PRN TP MUSCLE PAIN 10/25/20 19:00 Al Hydroxide/Mg Hydroxide (Mylanta Plus Xs) 15 ml PRN AFTMEALHC PRN PO DYSPEPSIA 10/25/20 19:00 Magnesium Hydroxide (Milk Of Magnesia) 2,400 mg PRN QHS PRN PO CONSTIPATION 10/25/20 19:00 Insulin Human Lispro (HumaLOG) 0-7 UNITS TIDWMEALS SQ 10/26/20 08:00 10/26/20 16:01 DC 10/26/20 12:20 Dextrose (Dextrose 50%-Water Syringe) 12.5 gm PRN Q15MIN PRN IV SEE COMMENTS 10/25/20 22:15 10/26/20 16:01 DC Insulin Human Lispro (HumaLOG) 10 units BID94 SQ 10/26/20 09:00 10/26/20 16:01 DC 10/26/20 09:00 Insulin Human Lispro (HumaLOG) 18 units NOON SQ 10/26/20 12:00 10/26/20 16:01 DC 10/26/20 12:00 Acetaminophen (Tylenol) 1,000 mg DAILY PO 10/26/20 09:00 10/31/20 12:33 Buspirone HCl (Buspar) 10 mg BID PO 10/25/20 23:00 10/31/20 17:02 DC 10/31/20 12:33 Furosemide (Lasix) 20 mg DAILY PO 10/26/20 09:00 10/31/20 12:33 Lorazepam (Ativan) 2 mg PRN Q4HRS PRN PO ANXIETY / AGITATION 10/25/20 23:00 10/30/20 20:05 Risperidone (RisperDAL) 0.75 mg QHS PO 10/25/20 23:00 10/31/20 17:02 DC 10/30/20 20:05 Sertraline HCl (Zoloft) 100 mg DAILY PO 10/26/20 09:00 10/31/20 12:32 Amantadine HCl (Symmetrel) 100 mg HS PO 10/25/20 23:00 10/31/20 21:00 Non-Formulary Medication (Capsaicin/ Menthol (Salonpas Gel-Patch Hot)) 1 patch DAILY TP 10/26/20 09:00 UNV Divalproex Sodium (Depakote) 1,250 mg HS PO 10/25/20 23:00 10/26/20 13:06 DC 10/25/20 23:18 Insulin Glargine (Lantus Syringe) 16 unit NOON SQ 10/26/20 12:00 10/26/20 16:01 DC 10/26/20 12:00 Amylase/Lipase/ Protease (Zenpep 10,000) 2 cap DAILY PO 10/26/20 09:00 10/31/20 12:32 Meloxicam (Mobic) 15 mg HS PO 10/26/20 21:00 10/29/20 15:47 DC 10/28/20 20:05 Non-Formulary Medication (Insulin Lispro (Humalog)) 10 unit BID94 SQ 10/26/20 09:00 UNV Non-Formulary Medication (Insulin Lispro (Humalog)) 18 unit NOON SQ 10/26/20 12:00 UNV Nicotine (Nicoderm Cq 14mg Patch) 1 patch DAILY TD 10/26/20 09:00 10/31/20 12:33 Divalproex Sodium (Depakote Er) 1,000 mg HS PO 10/26/20 21:00 10/31/20 20:39 Divalproex Sodium (Depakote Er) 250 mg HS PO 10/26/20 21:00 10/31/20 20:38 Glucose (Insta-Glucose) 15 gm PRN Q15MIN PRN PO LOW BLOOD SUGAR 10/26/20 15:45 Insulin Glargine (Lantus Syringe) 8 unit NOON SQ 10/26/20 16:00 UNV Insulin Human Lispro (HumaLOG) 0-5 UNITS TIDWMEALS SQ 10/27/20 08:00 10/27/20 19:44 DC 10/27/20 17:29 Dextrose (Dextrose 50%-Water Syringe) 12.5 gm PRN Q15MIN PRN IV SEE COMMENTS 10/26/20 16:15 Insulin Human Lispro (HumaLOG) 0-5 UNITS QIDACHS SQ 10/27/20 21:00 10/28/20 11:58 DC 10/27/20 20:47 Insulin Glargine (Lantus Syringe) 10 unit QHS SQ 10/28/20 21:00 10/29/20 15:43 DC 10/28/20 20:07 Insulin Human Lispro (HumaLOG) 0-9 UNITS TIDWMEALS SQ 10/28/20 12:00 10/30/20 17:23 Dextrose (Dextrose 50%-Water Syringe) 12.5 gm PRN Q15MIN PRN IV SEE COMMENTS 10/28/20 12:00 UNV Insulin Human Lispro (HumaLOG) 12 units ONCE SQ 10/28/20 12:00 10/28/20 12:17 Insulin Glargine (Lantus Syringe) 15 unit QHS SQ 10/29/20 21:00 10/31/20 21:05 Risperidone (RisperDAL) 1 mg QHS PO 10/31/20 21:00 10/31/20 20:42 Bupropion HCl (Wellbutrin Xl) 150 mg DAILY PO 11/01/20 09:00 Current Medications Medications (Trade) Dose Ordered Sig/Jenise Route PRN Reason Start Time Stop Time Status Last Admin Dose Admin Risperidone (RisperDAL) 1 mg QHS PO 10/31/20 21:00 10/31/20 20:42 I have reviewed the current psychotropics carefully including drug interactions. Risk benefit ratio favors no change other than as noted in my dictated progress note. Diagnosis: Problems: (1) Schizoaffective disorder, bipolar type (2) Impulse control disorder, unspecified (3) Mild cognitive impairment (4) Anxiety disorder, unspecified (5) Bipolar disorder, current episode mixed, severe, with psychotic features JESSICA RAMESH MD Nov 01, 2020 06:30
[2020-11-01] MEDS: INSULIN LISPRO 300 UNITS/3 ML VIAL. SQ SCH ×3 (08:00→17:00)
[2020-11-01] MEDS: NICOTINE 14MG PATCH. TD SCH (08:35)
[2020-11-01] MEDS: ACETAMINOPHEN 500 MG TABLET PO SCH ×2 (08:36→10:02)
[2020-11-01] MEDS: SERTRALINE 100 MG TABLET. PO SCH (08:36)
[2020-11-01] MEDS: FUROSEMIDE 20 MG TABLET PO SCH (08:36)
[2020-11-01] MEDS: buPROPion XL 150 MG TAB.ER.24H PO SCH (08:36)
[2020-11-01] MEDS: LIPASE/PROTEAS/AMYLAS 10/32/42 CAPSULE.DR. PO SCH (08:36)
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
--- NOTE | 2020-11-01 12:41 | NUR ---
WEEKLY ACTIVITY THERAPY NOTE Date of Admission:10/26/20 Date of AT Assessment: 10/26 Precipitating behaviors that initiated intake and admission:Pt had increased aggression and threatening staff and patients. Goal aimed:increase stress management and relaxation skills Initial Goal: Pt will participate in at least three individual or group Activity Therapy sessions per week. Weekly progress towards goal: did not achieve, 2/3 Group participation level: 1 min,1 full Weekly highlights: patio time Thursday morning Behaviors observed: withdrawn to room, tearful Thursday Plan: no change to goal Beneficial adaptations:
--- NOTE | 2020-11-01 13:49 | NUR ---
Nursing Note: Pt was medication compliant although she needed multiple redirections to successfully take them. She is easily distracted and very demanding about what needs she wants met and needing them met right away. She ate a full breakfast and lunch. Pt stated she wanted to talk to the doctor today, but refused to tell the nurse what she wanted to talk to the doctor about. So, it is unclear if it is a psych need or a physical need that she is needing met as she will not voice it to nursing. Before lunch pts. blood sugar was 489. Dr. Hill was contacted and gave a telephone order to give Humalog 20 units now and to raise her Lantus to 20 units at bedtime as well.
--- NOTE | 2020-11-01 15:18 | NUR ---
Nursing Note: Staff saw pt in the hallway looking drowsy and uneasy on her feet. When asked what was wrong she stated she just did not feel okay. Nursing took her vitals and it showed that since getting the 20 units of Humalog that was ordered by Dr. Hill earlier in the afternoon, her blood glucose has dropped significantly to 54. Nursing got her orange juice and a snack to eat. Her vitals were BP: 99/68 O2: 95% P:90 Dr. Hill was contacted and updated on the situation and stated to give pt juice to bring blood sugar back up and to recheck blood sugar in 1 hour and then go back to using sliding scale for humalog this evening.
[2020-11-01] MEDS: DEXTROSE ORAL GEL 15 GM TUBE. PO PRN (15:52)
[2020-11-01 16:05] VITALS: BP 99/68
[2020-11-01] MEDS: DIVALPROEX ER 500 MG TAB.ER.24H PO SCH (19:40)
[2020-11-01] MEDS: DIVALPROEX ER 250 MG TAB.ER.24H. PO SCH (19:40)
[2020-11-01] MEDS ORDERED: INSULIN LISPRO 300 UNITS/3 ML VIAL. SQ ONE (19:45)
[2020-11-01] MEDS: AMANTADINE HCL 100 MG PO SCH (21:00)
[2020-11-01] MEDS: risperiDONE 1 MG TABLET. PO SCH (21:21)
[2020-11-01] MEDS: INSULIN GLARGINE SYRINGE. SQ SCH (21:24)
--- NOTE | 2020-11-01 22:14 | PDOC ---
Exam Note: Jaren Note: Please also refer to the separate dictated note~for this date of service dictated separately.~Patient seen individually. Discussed the patient with Nursing staff reviewed the chart.~Reviewed interim history and current functioning. Reviewed vital signs,~Labs/ Radiology~and current medications noted below. Continue current treatment with the changes noted in the dictated addendum note Assessment: Vital Signs/I&O: Vital Signs Date Time Temp Pulse Resp B/P (MAP) Pulse Ox O2 Delivery O2 Flow Rate FiO2 11/01/20 16:05 97.6 87 17 99/68 (78) 94 11/01/20 05:55 Room Air I & O 10/31/20 10/31/20 11/01/20 15:00 23:00 07:00 Intake Total 300 ml 120 ml Balance 300 ml 120 ml Labs: Laboratory Tests Test 11/01/20 07:45 11/01/20 11:02 11/01/20 15:12 11/01/20 15:31 Glucose (Fingerstick) 201 mg/dL (70-99) H 489 mg/dL (70-99) H 54 mg/dL (70-99) L 52 mg/dL (70-99) L Test 11/01/20 16:02 11/01/20 16:34 11/01/20 19:27 11/01/20 21:18 Glucose (Fingerstick) 103 mg/dL (70-99) H 166 mg/dL (70-99) H 406 mg/dL (70-99) H 251 mg/dL (70-99) H Current Medications: Meds: Laboratory Tests Test 11/01/20 07:45 11/01/20 11:02 11/01/20 15:12 11/01/20 15:31 Glucose (Fingerstick) 201 mg/dL 489 mg/dL 54 mg/dL 52 mg/dL Test 11/01/20 16:02 11/01/20 16:34 11/01/20 19:27 11/01/20 21:18 Glucose (Fingerstick) 103 mg/dL 166 mg/dL 406 mg/dL 251 mg/dL Current Medications Medications (Trade) Dose Ordered Sig/Jenise Route PRN Reason Start Time Stop Time Status Last Admin Dose Admin Acetaminophen (Tylenol) 650 mg PRN Q6HRS PRN PO MILD PAIN / TEMP > 100.3'F 10/25/20 19:00 Multi-Ingredient Ointment (Analgesic [place]) 1 cody PRN QID PRN TP MUSCLE PAIN 10/25/20 19:00 Al Hydroxide/Mg Hydroxide (Mylanta Plus Xs) 15 ml PRN AFTMEALHC PRN PO DYSPEPSIA 10/25/20 19:00 Magnesium Hydroxide (Milk Of Magnesia) 2,400 mg PRN QHS PRN PO CONSTIPATION 10/25/20 19:00 Insulin Human Lispro (HumaLOG) 0-7 UNITS TIDWMEALS SQ 10/26/20 08:00 10/26/20 16:01 DC 10/26/20 12:20 Dextrose (Dextrose 50%-Water Syringe) 12.5 gm PRN Q15MIN PRN IV SEE COMMENTS 10/25/20 22:15 10/26/20 16:01 DC Insulin Human Lispro (HumaLOG) 10 units BID94 SQ 10/26/20 09:00 10/26/20 16:01 DC 10/26/20 09:00 Insulin Human Lispro (HumaLOG) 18 units NOON SQ 10/26/20 12:00 10/26/20 16:01 DC 10/26/20 12:00 Acetaminophen (Tylenol) 1,000 mg DAILY PO 10/26/20 09:00 11/01/20 08:36 Buspirone HCl (Buspar) 10 mg BID PO 10/25/20 23:00 10/31/20 17:02 DC 10/31/20 12:33 Furosemide (Lasix) 20 mg DAILY PO 10/26/20 09:00 11/01/20 08:36 Lorazepam (Ativan) 2 mg PRN Q4HRS PRN PO ANXIETY / AGITATION 10/25/20 23:00 10/30/20 20:05 Risperidone (RisperDAL) 0.75 mg QHS PO 10/25/20 23:00 10/31/20 17:02 DC 10/30/20 20:05 Sertraline HCl (Zoloft) 100 mg DAILY PO 10/26/20 09:00 11/01/20 08:36 Amantadine HCl (Symmetrel) 100 mg HS PO 10/25/20 23:00 11/01/20 21:00 Non-Formulary Medication (Capsaicin/ Menthol (Salonpas Gel-Patch Hot)) 1 patch DAILY TP 10/26/20 09:00 UNV Divalproex Sodium (Depakote) 1,250 mg HS PO 10/25/20 23:00 10/26/20 13:06 DC 10/25/20 23:18 Insulin Glargine (Lantus Syringe) 16 unit NOON SQ 10/26/20 12:00 10/26/20 16:01 DC 10/26/20 12:00 Amylase/Lipase/ Protease (Zenpep 10,000) 2 cap DAILY PO 10/26/20 09:00 11/01/20 08:36 Meloxicam (Mobic) 15 mg HS PO 10/26/20 21:00 10/29/20 15:47 DC 10/28/20 20:05 Non-Formulary Medication (Insulin Lispro (Humalog)) 10 unit BID94 SQ 10/26/20 09:00 UNV Non-Formulary Medication (Insulin Lispro (Humalog)) 18 unit NOON SQ 10/26/20 12:00 UNV Nicotine (Nicoderm Cq 14mg Patch) 1 patch DAILY TD 10/26/20 09:00 11/01/20 08:35 Divalproex Sodium (Depakote Er) 1,000 mg HS PO 10/26/20 21:00 11/01/20 19:40 Divalproex Sodium (Depakote Er) 250 mg HS PO 10/26/20 21:00 11/01/20 19:40 Glucose (Insta-Glucose) 15 gm PRN Q15MIN PRN PO LOW BLOOD SUGAR 10/26/20 15:45 11/01/20 15:52 Insulin Glargine (Lantus Syringe) 8 unit NOON SQ 10/26/20 16:00 UNV Insulin Human Lispro (HumaLOG) 0-5 UNITS TIDWMEALS SQ 10/27/20 08:00 10/27/20 19:44 DC 10/27/20 17:29 Dextrose (Dextrose 50%-Water Syringe) 12.5 gm PRN Q15MIN PRN IV SEE COMMENTS 10/26/20 16:15 Insulin Human Lispro (HumaLOG) 0-5 UNITS QIDACHS SQ 10/27/20 21:00 10/28/20 11:58 DC 10/27/20 20:47 Insulin Glargine (Lantus Syringe) 10 unit QHS SQ 10/28/20 21:00 10/29/20 15:43 DC 10/28/20 20:07 Insulin Human Lispro (HumaLOG) 0-9 UNITS TIDWMEALS SQ 10/28/20 12:00 11/01/20 12:49 Dextrose (Dextrose 50%-Water Syringe) 12.5 gm PRN Q15MIN PRN IV SEE COMMENTS 10/28/20 12:00 UNV Insulin Human Lispro (HumaLOG) 12 units ONCE SQ 10/28/20 12:00 10/28/20 12:17 Insulin Glargine (Lantus Syringe) 15 unit QHS SQ 10/29/20 21:00 11/01/20 12:43 DC 10/31/20 21:05 Risperidone (RisperDAL) 1 mg QHS PO 10/31/20 21:00 11/01/20 10:59 DC 10/31/20 20:42 Bupropion HCl (Wellbutrin Xl) 150 mg DAILY PO 11/01/20 09:00 11/01/20 08:36 Risperidone (RisperDAL) 1.5 mg QHS PO 11/01/20 21:00 11/01/20 21:21 Insulin Glargine (Lantus Syringe) 20 unit QHS SQ 11/01/20 21:00 11/01/20 21:24 Insulin Human Lispro (HumaLOG) 12 units 1X ONCE SQ 11/01/20 19:45 11/01/20 19:46 DC 11/01/20 19:45 Current Medications Medications (Trade) Dose Ordered Sig/Jenise Route PRN Reason Start Time Stop Time Status Last Admin Dose Admin Bupropion HCl (Wellbutrin Xl) 150 mg DAILY PO 11/01/20 09:00 11/01/20 08:36 Risperidone (RisperDAL) 1.5 mg QHS PO 11/01/20 21:00 11/01/20 21:21 Insulin Glargine (Lantus Syringe) 20 unit QHS SQ 11/01/20 21:00 11/01/20 21:24 Insulin Human Lispro (HumaLOG) 12 units 1X ONCE SQ 11/01/20 19:45 11/01/20 19:46 DC 7/8/21 19:45 I have reviewed the current psychotropics carefully including drug interactions. Risk benefit ratio favors no change other than as noted in my dictated progress note. Diagnosis: Problems: (1) Schizoaffective disorder, bipolar type (2) Impulse control disorder, unspecified (3) Mild cognitive impairment (4) Anxiety disorder, unspecified (5) Bipolar disorder, current episode mixed, severe, with psychotic features JESSICA RAMESH MD Nov 01, 2020 22:14
--- NOTE | 2020-11-01 23:23 | NUR ---
At approx 1999, tech reports blood sugar of 406 mg/dl; notified as per sliding scale protocol, order taken for 12u Regular Insulin SQ x1 and continue to give Lantus 20u at HS as previously scheduled; re-check approx one hour later shows blood sugar 251 mg/dl; ambulates in hallway and spends time in dayroom watching movie; takes all medications without incident; at bedtime became tearful, easily calms with conversation; sleeps at present with no apparent distress; will continue to monitor.
[2020-11-02 06:17] VITALS: BP 107/64
--- NOTE | 2020-11-02 06:56 | PDOC ---
Exam Note: Jaren Note: This note is a late entry for 11/01/2020 covers elements not covered in my initial note. Subjective: The patient was seen individually in the morning of 11/01/2020 for a treatment team meeting with Jessica Chirinos, Letty Blunt (certified social workers in health care), Ami, activity therapy and Sal TOBIN, discussed and reviewed the chart. She slept 8-3/4 hours previous night. The patient has been somewhat withdrawn, isolative. She indicated she had some medical questions and we will defer her to Dr. Hill. She has been somewhat forgetful, combative at times, wanting to be in bed, combative at showers, previous evening incontinent at times, resistance to changing her clothes and poor oral intake yesterday. At times she wets on herself and self defecates but this is improved. She does take medications whole. Socialization is a little better and she was in the dayroom as I met with her in the evening. Review of Systems: Ambulation impaired in wheelchair. No CV, , pulmonary, eye, ENT system symptoms on review. Mental Status Exam: The patient is oriented to herself and situation. Speech has some latency, coherent. Abstraction fair. Computation impaired. Language function intact. Attention span short. Mood and affect somewhat withdrawn. Laboratory Data: Reviewed. Impression: Schizoaffective disorder bipolar type with psychotic features. Anxiety disorder unspecified. Impulse control disorder unspecified. Mild cognitive impairment. Plan: Continue current psychotropics. She remains somewhat psychotic. Increase Risperdal from 1 mg h.s. to 1.5 mg h.s. Continue rest unchanged. Assessment: Vital Signs/I&O: Vital Signs Date Time Temp Pulse Resp B/P (MAP) Pulse Ox O2 Delivery O2 Flow Rate FiO2 11/02/20 06:17 98.3 77 14 107/64 (78) 97 Room Air I & O 11/01/20 11/01/20 11/02/20 15:00 23:00 07:00 Intake Total 720 ml 840 ml Balance 720 ml 840 ml Labs: Laboratory Tests Test 11/01/20 07:45 11/01/20 11:02 11/01/20 15:12 11/01/20 15:31 Glucose (Fingerstick) 201 mg/dL (70-99) H 489 mg/dL (70-99) H 54 mg/dL (70-99) L 52 mg/dL (70-99) L Test 11/01/20 16:02 11/01/20 16:34 11/01/20 19:27 11/01/20 21:18 Glucose (Fingerstick) 103 mg/dL (70-99) H 166 mg/dL (70-99) H 406 mg/dL (70-99) H 251 mg/dL (70-99) H Current Medications: Meds: Laboratory Tests Test 11/01/20 07:45 11/01/20 11:02 11/01/20 15:12 11/01/20 15:31 Glucose (Fingerstick) 201 mg/dL 489 mg/dL 54 mg/dL 52 mg/dL Test 11/01/20 16:02 11/01/20 16:34 11/01/20 19:27 11/01/20 21:18 Glucose (Fingerstick) 103 mg/dL 166 mg/dL 406 mg/dL 251 mg/dL Current Medications Medications (Trade) Dose Ordered Sig/Jenise Route PRN Reason Start Time Stop Time Status Last Admin Dose Admin Acetaminophen (Tylenol) 650 mg PRN Q6HRS PRN PO MILD PAIN / TEMP > 100.3'F 10/25/20 19:00 Multi-Ingredient Ointment (Analgesic [place]) 1 cody PRN QID PRN TP MUSCLE PAIN 10/25/20 19:00 Al Hydroxide/Mg Hydroxide (Mylanta Plus Xs) 15 ml PRN AFTMEALHC PRN PO DYSPEPSIA 10/25/20 19:00 Magnesium Hydroxide (Milk Of Magnesia) 2,400 mg PRN QHS PRN PO CONSTIPATION 10/25/20 19:00 Insulin Human Lispro (HumaLOG) 0-7 UNITS TIDWMEALS SQ 10/26/20 08:00 10/26/20 16:01 DC 10/26/20 12:20 Dextrose (Dextrose 50%-Water Syringe) 12.5 gm PRN Q15MIN PRN IV SEE COMMENTS 10/25/20 22:15 10/26/20 16:01 DC Insulin Human Lispro (HumaLOG) 10 units BID94 SQ 10/26/20 09:00 10/26/20 16:01 DC 10/26/20 09:00 Insulin Human Lispro (HumaLOG) 18 units NOON SQ 10/26/20 12:00 10/26/20 16:01 DC 10/26/20 12:00 Acetaminophen (Tylenol) 1,000 mg DAILY PO 10/26/20 09:00 11/01/20 08:36 Buspirone HCl (Buspar) 10 mg BID PO 10/25/20 23:00 10/31/20 17:02 DC 10/31/20 12:33 Furosemide (Lasix) 20 mg DAILY PO 10/26/20 09:00 11/01/20 08:36 Lorazepam (Ativan) 2 mg PRN Q4HRS PRN PO ANXIETY / AGITATION 10/25/20 23:00 10/30/20 20:05 Risperidone (RisperDAL) 0.75 mg QHS PO 10/25/20 23:00 10/31/20 17:02 DC 10/30/20 20:05 Sertraline HCl (Zoloft) 100 mg DAILY PO 10/26/20 09:00 11/01/20 08:36 Amantadine HCl (Symmetrel) 100 mg HS PO 10/25/20 23:00 11/01/20 21:00 Non-Formulary Medication (Capsaicin/ Menthol (Salonpas Gel-Patch Hot)) 1 patch DAILY TP 10/26/20 09:00 UNV Divalproex Sodium (Depakote) 1,250 mg HS PO 10/25/20 23:00 10/26/20 13:06 DC 10/25/20 23:18 Insulin Glargine (Lantus Syringe) 16 unit NOON SQ 10/26/20 12:00 10/26/20 16:01 DC 10/26/20 12:00 Amylase/Lipase/ Protease (Zenpep 10,000) 2 cap DAILY PO 10/26/20 09:00 11/01/20 08:36 Meloxicam (Mobic) 15 mg HS PO 10/26/20 21:00 10/29/20 15:47 DC 10/28/20 20:05 Non-Formulary Medication (Insulin Lispro (Humalog)) 10 unit BID94 SQ 10/26/20 09:00 UNV Non-Formulary Medication (Insulin Lispro (Humalog)) 18 unit NOON SQ 10/26/20 12:00 UNV Nicotine (Nicoderm Cq 14mg Patch) 1 patch DAILY TD 10/26/20 09:00 11/01/20 08:35 Divalproex Sodium (Depakote Er) 1,000 mg HS PO 10/26/20 21:00 11/01/20 19:40 Divalproex Sodium (Depakote Er) 250 mg HS PO 10/26/20 21:00 11/01/20 19:40 Glucose (Insta-Glucose) 15 gm PRN Q15MIN PRN PO LOW BLOOD SUGAR 10/26/20 15:45 11/01/20 15:52 Insulin Glargine (Lantus Syringe) 8 unit NOON SQ 10/26/20 16:00 UNV Insulin Human Lispro (HumaLOG) 0-5 UNITS TIDWMEALS SQ 10/27/20 08:00 10/27/20 19:44 DC 10/27/20 17:29 Dextrose (Dextrose 50%-Water Syringe) 12.5 gm PRN Q15MIN PRN IV SEE COMMENTS 10/26/20 16:15 Insulin Human Lispro (HumaLOG) 0-5 UNITS QIDACHS SQ 10/27/20 21:00 10/28/20 11:58 DC 10/27/20 20:47 Insulin Glargine (Lantus Syringe) 10 unit QHS SQ 10/28/20 21:00 10/29/20 15:43 DC 10/28/20 20:07 Insulin Human Lispro (HumaLOG) 0-9 UNITS TIDWMEALS SQ 10/28/20 12:00 11/01/20 12:49 Dextrose (Dextrose 50%-Water Syringe) 12.5 gm PRN Q15MIN PRN IV SEE COMMENTS 10/28/20 12:00 UNV Insulin Human Lispro (HumaLOG) 12 units ONCE SQ 10/28/20 12:00 10/28/20 12:17 Insulin Glargine (Lantus Syringe) 15 unit QHS SQ 10/29/20 21:00 11/01/20 12:43 DC 10/31/20 21:05 Risperidone (RisperDAL) 1 mg QHS PO 10/31/20 21:00 11/01/20 10:59 DC 10/31/20 20:42 Bupropion HCl (Wellbutrin Xl) 150 mg DAILY PO 11/01/20 09:00 11/01/20 08:36 Risperidone (RisperDAL) 1.5 mg QHS PO 11/01/20 21:00 11/01/20 21:21 Insulin Glargine (Lantus Syringe) 20 unit QHS SQ 11/01/20 21:00 11/01/20 21:24 Insulin Human Lispro (HumaLOG) 12 units 1X ONCE SQ 11/01/20 19:45 11/01/20 19:46 DC 11/01/20 19:45 Current Medications Medications (Trade) Dose Ordered Sig/Jenise Route PRN Reason Start Time Stop Time Status Last Admin Dose Admin Bupropion HCl (Wellbutrin Xl) 150 mg DAILY PO 11/01/20 09:00 11/01/20 08:36 Risperidone (RisperDAL) 1.5 mg QHS PO 11/01/20 21:00 11/01/20 21:21 Insulin Glargine (Lantus Syringe) 20 unit QHS SQ 11/01/20 21:00 11/01/20 21:24 Insulin Human Lispro (HumaLOG) 12 units 1X ONCE SQ 11/01/20 19:45 11/01/20 19:46 DC 11/01/20 19:45 I have reviewed the current psychotropics carefully including drug interactions. Risk benefit ratio favors no change other than as noted in my dictated progress note. Diagnosis: Problems: (1) Schizoaffective disorder, bipolar type (2) Impulse control disorder, unspecified (3) Mild cognitive impairment (4) Anxiety disorder, unspecified (5) Bipolar disorder, current episode mixed, severe, with psychotic features JESSICA RAMESH MD Nov 02, 2020 06:55
[2020-11-02] MEDS: INSULIN LISPRO 300 UNITS/3 ML VIAL. SQ SCH ×3 (08:00→17:38)
[2020-11-02] MEDS: LIPASE/PROTEAS/AMYLAS 10/32/42 CAPSULE.DR. PO SCH (09:00)
[2020-11-02] MEDS: SERTRALINE 100 MG TABLET. PO SCH (09:05)
[2020-11-02] MEDS: NICOTINE 14MG PATCH. TD SCH (09:05)
[2020-11-02] MEDS: FUROSEMIDE 20 MG TABLET PO SCH (09:05)
[2020-11-02] MEDS: buPROPion XL 150 MG TAB.ER.24H PO SCH (09:05)
[2020-11-02] MEDS: ACETAMINOPHEN 500 MG TABLET PO SCH (09:05)
--- NOTE | 2020-11-02 09:38 | NUR ---
BRIA spoke with Belen from pt facility to provide pt update. Reviewed behaviors and medications. Tentative discharge sometime week after next. Belen appreciative of call.
--- NOTE | 2020-11-02 11:07 | NUR ---
Nursing Note: Pt refused to get up for breakfast this morning, so nursing came to her room for morning medications. Pt. was aggressive stating "bitch, I will punch you in your face" when nurse asked her to sit up to take her medication. She seemed to calm down once she woke up a little more. Nurse held pts. insulin this morning, because blood sugar was too low to administer. After medications were administered pt. laid right back down in bed and went back to sleep. She had minimal interaction with others today and was withdrawn for majority of the day.
[2020-11-02 15:54] VITALS: BP 134/84
[2020-11-02] MEDS: AMANTADINE HCL 100 MG PO SCH (21:00)
[2020-11-02] MEDS: risperiDONE 1 MG TABLET. PO SCH (21:16)
[2020-11-02] MEDS: DIVALPROEX ER 250 MG TAB.ER.24H. PO SCH (21:16)
[2020-11-02] MEDS: DIVALPROEX ER 500 MG TAB.ER.24H PO SCH (21:17)
[2020-11-02] MEDS: INSULIN GLARGINE SYRINGE. SQ SCH (21:20)
--- NOTE | 2020-11-02 21:56 | PDOC ---
Exam Note: Jaren Note: Please also refer to the separate dictated note~for this date of service dictated separately.~Patient seen individually. Discussed the patient with Nursing staff reviewed the chart.~Reviewed interim history and current functioning. Reviewed vital signs,~Labs/ Radiology~and current medications noted below. Continue current treatment with the changes noted in the dictated addendum note Assessment: Vital Signs/I&O: Vital Signs Date Time Temp Pulse Resp B/P (MAP) Pulse Ox O2 Delivery O2 Flow Rate FiO2 11/02/20 15:54 97.2 75 20 134/84 (101) 98 11/02/20 06:17 Room Air I & O 11/01/20 11/01/20 11/02/20 15:00 23:00 07:00 Intake Total 720 ml 840 ml Balance 720 ml 840 ml Labs: Laboratory Tests Test 11/02/20 07:52 11/02/20 11:50 11/02/20 17:03 11/02/20 19:06 Glucose (Fingerstick) 139 mg/dL (70-99) H 177 mg/dL (70-99) H 197 mg/dL (70-99) H 323 mg/dL (70-99) H Current Medications: Meds: Laboratory Tests Test 11/02/20 07:52 11/02/20 11:50 11/02/20 17:03 11/02/20 19:06 Glucose (Fingerstick) 139 mg/dL 177 mg/dL 197 mg/dL 323 mg/dL Current Medications Medications (Trade) Dose Ordered Sig/Jenise Route PRN Reason Start Time Stop Time Status Last Admin Dose Admin Acetaminophen (Tylenol) 650 mg PRN Q6HRS PRN PO MILD PAIN / TEMP > 100.3'F 10/25/20 19:00 Multi-Ingredient Ointment (Analgesic [place]) 1 cody PRN QID PRN TP MUSCLE PAIN 10/25/20 19:00 Al Hydroxide/Mg Hydroxide (Mylanta Plus Xs) 15 ml PRN AFTMEALHC PRN PO DYSPEPSIA 10/25/20 19:00 Magnesium Hydroxide (Milk Of Magnesia) 2,400 mg PRN QHS PRN PO CONSTIPATION 10/25/20 19:00 Insulin Human Lispro (HumaLOG) 0-7 UNITS TIDWMEALS SQ 10/26/20 08:00 10/26/20 16:01 DC 10/26/20 12:20 Dextrose (Dextrose 50%-Water Syringe) 12.5 gm PRN Q15MIN PRN IV SEE COMMENTS 10/25/20 22:15 10/26/20 16:01 DC Insulin Human Lispro (HumaLOG) 10 units BID94 SQ 10/26/20 09:00 10/26/20 16:01 DC 10/26/20 09:00 Insulin Human Lispro (HumaLOG) 18 units NOON SQ 10/26/20 12:00 10/26/20 16:01 DC 10/26/20 12:00 Acetaminophen (Tylenol) 1,000 mg DAILY PO 10/26/20 09:00 11/02/20 09:05 Buspirone HCl (Buspar) 10 mg BID PO 10/25/20 23:00 10/31/20 17:02 DC 10/31/20 12:33 Furosemide (Lasix) 20 mg DAILY PO 10/26/20 09:00 11/02/20 09:05 Lorazepam (Ativan) 2 mg PRN Q4HRS PRN PO ANXIETY / AGITATION 10/25/20 23:00 10/30/20 20:05 Risperidone (RisperDAL) 0.75 mg QHS PO 10/25/20 23:00 10/31/20 17:02 DC 10/30/20 20:05 Sertraline HCl (Zoloft) 100 mg DAILY PO 10/26/20 09:00 11/02/20 17:22 DC 11/02/20 09:05 Amantadine HCl (Symmetrel) 100 mg HS PO 10/25/20 23:00 11/02/20 21:00 Non-Formulary Medication (Capsaicin/ Menthol (Salonpas Gel-Patch Hot)) 1 patch DAILY TP 10/26/20 09:00 UNV Divalproex Sodium (Depakote) 1,250 mg HS PO 10/25/20 23:00 10/26/20 13:06 DC 10/25/20 23:18 Insulin Glargine (Lantus Syringe) 16 unit NOON SQ 10/26/20 12:00 10/26/20 16:01 DC 10/26/20 12:00 Amylase/Lipase/ Protease (Zenpep 10,000) 2 cap DAILY PO 10/26/20 09:00 11/02/20 09:00 Meloxicam (Mobic) 15 mg HS PO 10/26/20 21:00 10/29/20 15:47 DC 10/28/20 20:05 Non-Formulary Medication (Insulin Lispro (Humalog)) 10 unit BID94 SQ 10/26/20 09:00 UNV Non-Formulary Medication (Insulin Lispro (Humalog)) 18 unit NOON SQ 10/26/20 12:00 UNV Nicotine (Nicoderm Cq 14mg Patch) 1 patch DAILY TD 10/26/20 09:00 11/02/20 09:05 Divalproex Sodium (Depakote Er) 1,000 mg HS PO 10/26/20 21:00 11/02/20 21:17 Divalproex Sodium (Depakote Er) 250 mg HS PO 10/26/20 21:00 11/02/20 21:16 Glucose (Insta-Glucose) 15 gm PRN Q15MIN PRN PO LOW BLOOD SUGAR 10/26/20 15:45 11/01/20 15:52 Insulin Glargine (Lantus Syringe) 8 unit NOON SQ 10/26/20 16:00 UNV Insulin Human Lispro (HumaLOG) 0-5 UNITS TIDWMEALS SQ 10/27/20 08:00 10/27/20 19:44 DC 10/27/20 17:29 Dextrose (Dextrose 50%-Water Syringe) 12.5 gm PRN Q15MIN PRN IV SEE COMMENTS 10/26/20 16:15 Insulin Human Lispro (HumaLOG) 0-5 UNITS QIDACHS SQ 10/27/20 21:00 10/28/20 11:58 DC 10/27/20 20:47 Insulin Glargine (Lantus Syringe) 10 unit QHS SQ 10/28/20 21:00 10/29/20 15:43 DC 10/28/20 20:07 Insulin Human Lispro (HumaLOG) 0-9 UNITS TIDWMEALS SQ 10/28/20 12:00 11/02/20 17:38 Dextrose (Dextrose 50%-Water Syringe) 12.5 gm PRN Q15MIN PRN IV SEE COMMENTS 10/28/20 12:00 UNV Insulin Human Lispro (HumaLOG) 12 units ONCE SQ 10/28/20 12:00 10/28/20 12:17 Insulin Glargine (Lantus Syringe) 15 unit QHS SQ 10/29/20 21:00 11/01/20 12:43 DC 10/31/20 21:05 Risperidone (RisperDAL) 1 mg QHS PO 10/31/20 21:00 11/01/20 10:59 DC 10/31/20 20:42 Bupropion HCl (Wellbutrin Xl) 150 mg DAILY PO 11/01/20 09:00 11/02/20 17:22 DC 11/02/20 09:05 Risperidone (RisperDAL) 1.5 mg QHS PO 11/01/20 21:00 11/02/20 21:16 Insulin Glargine (Lantus Syringe) 20 unit QHS SQ 11/01/20 21:00 11/02/20 21:20 Insulin Human Lispro (HumaLOG) 12 units 1X ONCE SQ 11/01/20 19:45 11/01/20 19:46 DC 11/01/20 19:45 Bupropion HCl (Wellbutrin Xl) 300 mg DAILY PO 11/03/20 09:00 Sertraline HCl (Zoloft) 100 mg HS PO 11/03/20 21:00 I have reviewed the current psychotropics carefully including drug interactions. Risk benefit ratio favors no change other than as noted in my dictated progress note. Diagnosis: Problems: (1) Schizoaffective disorder, bipolar type (2) Impulse control disorder, unspecified (3) Mild cognitive impairment (4) Anxiety disorder, unspecified (5) Bipolar disorder, current episode mixed, severe, with psychotic features JESSICA RAMESH MD Nov 02, 2020 21:56
--- NOTE | 2020-11-02 23:59 | NUR ---
Patient is located in her room on assumption of care, awake in bed. She is flat, disorganized, confused. She does not initiate conversation, but will answer questions when asked. She was compliant with assessments and medications taken whole. No agitation. Patient denies any pain or discomfort. She appears to be sleeping comfortably at present time. Will continue to monitor.
[2020-11-03 06:13] VITALS: BP 138/83
[2020-11-03] MEDS: INSULIN LISPRO 300 UNITS/3 ML VIAL. SQ SCH ×3 (08:00→17:31)
[2020-11-03] MEDS: ACETAMINOPHEN 500 MG TABLET PO SCH (08:38)
[2020-11-03] MEDS: FUROSEMIDE 20 MG TABLET PO SCH (08:38)
[2020-11-03] MEDS: LIPASE/PROTEAS/AMYLAS 10/32/42 CAPSULE.DR. PO SCH (08:38)
[2020-11-03] MEDS: NICOTINE 14MG PATCH. TD SCH (08:39)
[2020-11-03] MEDS: buPROPion XL 300 MG TAB.ER.24H. PO SCH (08:40)
--- NOTE | 2020-11-03 14:22 | NUR ---
Nursing Note: Pt. attended breakfast in the dining room. She was calm, cooperative, and medication compliant. Her blood sugar was too low (93) this morning, so insulin was held per sliding scale protocol. At lunch pt. blood sugar was 474, so Dr. Hill was contacted and ordered a one time dose of 14 units of humalog. Pt has been in day room since lunch and has been disoriented and confused, stating she has not seen the doctor since she has arrived and that she would really like to see him.
[2020-11-03 15:56] VITALS: BP 137/87
[2020-11-03] MEDS ORDERED: INSULIN LISPRO 300 UNITS/3 ML VIAL. SQ ONE (19:30)
[2020-11-03] MEDS: risperiDONE 1 MG TABLET. PO SCH (19:44)
[2020-11-03] MEDS: DIVALPROEX ER 500 MG TAB.ER.24H PO SCH (19:44)
[2020-11-03] MEDS: DIVALPROEX ER 250 MG TAB.ER.24H. PO SCH (19:44)
[2020-11-03] MEDS: AMANTADINE HCL 100 MG PO SCH (19:45)
[2020-11-03] MEDS: SERTRALINE 100 MG TABLET. PO SCH (19:45)
[2020-11-03] MEDS: INSULIN GLARGINE SYRINGE. SQ SCH (20:35)
--- NOTE | 2020-11-03 22:13 | PDOC ---
Exam Note: Jaren Note: Please also refer to the separate dictated note~for this date of service dictated separately.~Patient seen individually. Discussed the patient with Nursing staff reviewed the chart.~Reviewed interim history and current functioning. Reviewed vital signs,~Labs/ Radiology~and current medications noted below. Continue current treatment with the changes noted in the dictated addendum note Assessment: Vital Signs/I&O: Vital Signs Date Time Temp Pulse Resp B/P (MAP) Pulse Ox O2 Delivery O2 Flow Rate FiO2 11/03/20 15:56 96.8 85 18 137/87 (104) 98 11/02/20 06:17 Room Air I & O 11/02/20 11/02/20 11/03/20 15:00 23:00 07:00 Intake Total 240 ml 720 ml Balance 240 ml 720 ml Labs: Laboratory Tests Test 11/03/20 07:55 11/03/20 11:51 11/03/20 17:17 11/03/20 19:10 Glucose (Fingerstick) 93 mg/dL (70-99) 474 mg/dL (70-99) H 450 mg/dL (70-99) H 512 mg/dL (70-99) *H Test 11/03/20 20:31 Glucose (Fingerstick) 378 mg/dL (70-99) H Current Medications: Meds: Laboratory Tests Test 11/03/20 07:55 11/03/20 11:51 11/03/20 17:17 11/03/20 19:10 Glucose (Fingerstick) 93 mg/dL 474 mg/dL 450 mg/dL 512 mg/dL Test 11/03/20 20:31 Glucose (Fingerstick) 378 mg/dL Current Medications Medications (Trade) Dose Ordered Sig/Jenise Route PRN Reason Start Time Stop Time Status Last Admin Dose Admin Acetaminophen (Tylenol) 650 mg PRN Q6HRS PRN PO MILD PAIN / TEMP > 100.3'F 10/25/20 19:00 Multi-Ingredient Ointment (Analgesic [place]) 1 cody PRN QID PRN TP MUSCLE PAIN 10/25/20 19:00 Al Hydroxide/Mg Hydroxide (Mylanta Plus Xs) 15 ml PRN AFTMEALHC PRN PO DYSPEPSIA 10/25/20 19:00 Magnesium Hydroxide (Milk Of Magnesia) 2,400 mg PRN QHS PRN PO CONSTIPATION 10/25/20 19:00 Insulin Human Lispro (HumaLOG) 0-7 UNITS TIDWMEALS SQ 10/26/20 08:00 10/26/20 16:01 DC 10/26/20 12:20 Dextrose (Dextrose 50%-Water Syringe) 12.5 gm PRN Q15MIN PRN IV SEE COMMENTS 10/25/20 22:15 10/26/20 16:01 DC Insulin Human Lispro (HumaLOG) 10 units BID94 SQ 10/26/20 09:00 10/26/20 16:01 DC 10/26/20 09:00 Insulin Human Lispro (HumaLOG) 18 units NOON SQ 10/26/20 12:00 10/26/20 16:01 DC 10/26/20 12:00 Acetaminophen (Tylenol) 1,000 mg DAILY PO 10/26/20 09:00 11/03/20 08:38 Buspirone HCl (Buspar) 10 mg BID PO 10/25/20 23:00 10/31/20 17:02 DC 10/31/20 12:33 Furosemide (Lasix) 20 mg DAILY PO 10/26/20 09:00 11/03/20 08:38 Lorazepam (Ativan) 2 mg PRN Q4HRS PRN PO ANXIETY / AGITATION 10/25/20 23:00 10/30/20 20:05 Risperidone (RisperDAL) 0.75 mg QHS PO 10/25/20 23:00 10/31/20 17:02 DC 10/30/20 20:05 Sertraline HCl (Zoloft) 100 mg DAILY PO 10/26/20 09:00 11/02/20 17:22 DC 11/02/20 09:05 Amantadine HCl (Symmetrel) 100 mg HS PO 10/25/20 23:00 11/03/20 19:45 Non-Formulary Medication (Capsaicin/ Menthol (Salonpas Gel-Patch Hot)) 1 patch DAILY TP 10/26/20 09:00 UNV Divalproex Sodium (Depakote) 1,250 mg HS PO 10/25/20 23:00 10/26/20 13:06 DC 10/25/20 23:18 Insulin Glargine (Lantus Syringe) 16 unit NOON SQ 10/26/20 12:00 10/26/20 16:01 DC 10/26/20 12:00 Amylase/Lipase/ Protease (Zenpep 10,000) 2 cap DAILY PO 10/26/20 09:00 11/03/20 08:38 Meloxicam (Mobic) 15 mg HS PO 10/26/20 21:00 10/29/20 15:47 DC 10/28/20 20:05 Non-Formulary Medication (Insulin Lispro (Humalog)) 10 unit BID94 SQ 10/26/20 09:00 UNV Non-Formulary Medication (Insulin Lispro (Humalog)) 18 unit NOON SQ 10/26/20 12:00 UNV Nicotine (Nicoderm Cq 14mg Patch) 1 patch DAILY TD 10/26/20 09:00 11/03/20 08:39 Divalproex Sodium (Depakote Er) 1,000 mg HS PO 10/26/20 21:00 11/03/20 19:44 Divalproex Sodium (Depakote Er) 250 mg HS PO 10/26/20 21:00 11/03/20 19:44 Glucose (Insta-Glucose) 15 gm PRN Q15MIN PRN PO LOW BLOOD SUGAR 10/26/20 15:45 11/01/20 15:52 Insulin Glargine (Lantus Syringe) 8 unit NOON SQ 10/26/20 16:00 UNV Insulin Human Lispro (HumaLOG) 0-5 UNITS TIDWMEALS SQ 10/27/20 08:00 10/27/20 19:44 DC 10/27/20 17:29 Dextrose (Dextrose 50%-Water Syringe) 12.5 gm PRN Q15MIN PRN IV SEE COMMENTS 10/26/20 16:15 Insulin Human Lispro (HumaLOG) 0-5 UNITS QIDACHS SQ 10/27/20 21:00 10/28/20 11:58 DC 10/27/20 20:47 Insulin Glargine (Lantus Syringe) 10 unit QHS SQ 10/28/20 21:00 10/29/20 15:43 DC 10/28/20 20:07 Insulin Human Lispro (HumaLOG) 0-9 UNITS TIDWMEALS SQ 10/28/20 12:00 11/03/20 17:31 Dextrose (Dextrose 50%-Water Syringe) 12.5 gm PRN Q15MIN PRN IV SEE COMMENTS 10/28/20 12:00 UNV Insulin Human Lispro (HumaLOG) 12 units ONCE SQ 10/28/20 12:00 10/28/20 12:17 Insulin Glargine (Lantus Syringe) 15 unit QHS SQ 10/29/20 21:00 11/01/20 12:43 DC 10/31/20 21:05 Risperidone (RisperDAL) 1 mg QHS PO 10/31/20 21:00 11/01/20 10:59 DC 10/31/20 20:42 Bupropion HCl (Wellbutrin Xl) 150 mg DAILY PO 11/01/20 09:00 11/02/20 17:22 DC 11/02/20 09:05 Risperidone (RisperDAL) 1.5 mg QHS PO 11/01/20 21:00 11/03/20 19:44 Insulin Glargine (Lantus Syringe) 20 unit QHS SQ 11/01/20 21:00 11/03/20 19:16 DC 11/02/20 21:20 Insulin Human Lispro (HumaLOG) 12 units 1X ONCE SQ 11/01/20 19:45 11/01/20 19:46 DC 11/01/20 19:45 Bupropion HCl (Wellbutrin Xl) 300 mg DAILY PO 11/03/20 09:00 11/03/20 08:40 Sertraline HCl (Zoloft) 100 mg HS PO 11/03/20 21:00 11/03/20 19:45 Insulin Glargine (Lantus Syringe) 25 unit QHS SQ 11/03/20 21:00 11/03/20 20:35 Insulin Human Lispro (HumaLOG) 15 units 1X ONCE SQ 11/03/20 19:30 11/03/20 19:31 DC 11/03/20 19:24 Current Medications Medications (Trade) Dose Ordered Sig/Jenise Route PRN Reason Start Time Stop Time Status Last Admin Dose Admin Bupropion HCl (Wellbutrin Xl) 300 mg DAILY PO 11/03/20 09:00 11/03/20 08:40 Sertraline HCl (Zoloft) 100 mg HS PO 11/03/20 21:00 11/03/20 19:45 Insulin Glargine (Lantus Syringe) 25 unit QHS SQ 11/03/20 21:00 11/03/20 20:35 Insulin Human Lispro (HumaLOG) 15 units 1X ONCE SQ 11/03/20 19:30 11/03/20 19:31 DC 11/03/20 19:24 I have reviewed the current psychotropics carefully including drug interactions. Risk benefit ratio favors no change other than as noted in my dictated progress note. Diagnosis: Problems: (1) Schizoaffective disorder, bipolar type (2) Impulse control disorder, unspecified (3) Anxiety disorder, unspecified (4) Bipolar disorder, current episode mixed, severe, with psychotic features JESSICA RAMESH MD Nov 03, 2020 22:13
--- NOTE | 2020-11-03 22:40 | NUR ---
Patient is located in the day room on assumption of care, watching television. She is tearful, disorganized, confused. Continues to ask why she is here and ask to see the doctor. She was compliant with assessments and medications taken whole. Blood sugar at [address] Hill notified, new orders received for Humalog 15 units one time now, and increase HS Lantus from 20 to 25 units. Recheck of blood sugar an hour later was 373, HS Lantus administered as ordered. No agitation. Patient denies any pain or discomfort. She appears to be sleeping comfortably at present time. Will continue to monitor.
[2020-11-04 05:47] VITALS: BP 135/83
--- NOTE | 2020-11-04 08:08 | PDOC ---
Exam Note: Jaren Note: This note is a late entry for 11/02/2020 covers elements not covered in my initial note. Subjective: The patient was seen individually in the evening of 11/02/2020 with Sal TOBIN, discussed and reviewed the chart. She slept 8-1/4 hours previous night. I met with the patient in her room. She slept through breakfast. When first awakened for breakfast she was quite irritable, threatening staff, then did better. Blood sugars are fluctuating significantly and could well be contributing to her ongoing mood lability even though that is improved. Review of Systems: Ambulation impaired in wheelchair. No CV, , pulmonary, eye, ENT system symptoms on review. Mental Status Exam: The patient is oriented to herself and situation. Speech has some latency, coherent. Abstraction fair. Computation impaired. Language function intact. Attention span short. Mood and affect somewhat withdrawn. Laboratory Data: Reviewed. Impression: Schizoaffective disorder bipolar type with psychotic features. Anxiety disorder unspecified. Impulse control disorder unspecified. Mild cognitive impairment. Plan: Continue current psychotropics. Increase Wellbutrin XL from 150 mg a day to 300 mg a day on account of her mood symptoms. Increase Zoloft from 100 mg a day to 125 mg a day. Valproic acid level is awaited on 11/06. Adjust further as clinically indicated. Assessment: Vital Signs/I&O: Vital Signs Date Time Temp Pulse Resp B/P (MAP) Pulse Ox O2 Delivery O2 Flow Rate FiO2 11/04/20 05:47 97.3 65 20 135/83 (100) 93 11/02/20 06:17 Room Air I & O 11/03/20 11/03/20 11/04/20 15:00 23:00 07:00 Intake Total 760 ml 600 ml Balance 760 ml 600 ml Labs: Laboratory Tests Test 11/03/20 11:51 11/03/20 17:17 11/03/20 19:10 11/03/20 20:31 Glucose (Fingerstick) 474 mg/dL (70-99) H 450 mg/dL (70-99) H 512 mg/dL (70-99) *H 378 mg/dL (70-99) H Test 11/04/20 07:19 Glucose (Fingerstick) 175 mg/dL (70-99) H Current Medications: Meds: Laboratory Tests Test 11/03/20 11:51 11/03/20 17:17 11/03/20 19:10 11/03/20 20:31 Glucose (Fingerstick) 474 mg/dL 450 mg/dL 512 mg/dL 378 mg/dL Test 11/04/20 07:19 Glucose (Fingerstick) 175 mg/dL Current Medications Medications (Trade) Dose Ordered Sig/Jenise Route PRN Reason Start Time Stop Time Status Last Admin Dose Admin Acetaminophen (Tylenol) 650 mg PRN Q6HRS PRN PO MILD PAIN / TEMP > 100.3'F 10/25/20 19:00 Multi-Ingredient Ointment (Analgesic [employer]) 1 cody PRN QID PRN TP MUSCLE PAIN 10/25/20 19:00 Al Hydroxide/Mg Hydroxide (Mylanta Plus Xs) 15 ml PRN AFTMEALHC PRN PO DYSPEPSIA 10/25/20 19:00 Magnesium Hydroxide (Milk Of Magnesia) 2,400 mg PRN QHS PRN PO CONSTIPATION 10/25/20 19:00 Insulin Human Lispro (HumaLOG) 0-7 UNITS TIDWMEALS SQ 10/26/20 08:00 10/26/20 16:01 DC 10/26/20 12:20 Dextrose (Dextrose 50%-Water Syringe) 12.5 gm PRN Q15MIN PRN IV SEE COMMENTS 10/25/20 22:15 10/26/20 16:01 DC Insulin Human Lispro (HumaLOG) 10 units BID94 SQ 10/26/20 09:00 10/26/20 16:01 DC 10/26/20 09:00 Insulin Human Lispro (HumaLOG) 18 units NOON SQ 10/26/20 12:00 10/26/20 16:01 DC 10/26/20 12:00 Acetaminophen (Tylenol) 1,000 mg DAILY PO 10/26/20 09:00 11/03/20 08:38 Buspirone HCl (Buspar) 10 mg BID PO 10/25/20 23:00 10/31/20 17:02 DC 10/31/20 12:33 Furosemide (Lasix) 20 mg DAILY PO 10/26/20 09:00 11/03/20 08:38 Lorazepam (Ativan) 2 mg PRN Q4HRS PRN PO ANXIETY / AGITATION 10/25/20 23:00 10/30/20 20:05 Risperidone (RisperDAL) 0.75 mg QHS PO 10/25/20 23:00 10/31/20 17:02 DC 10/30/20 20:05 Sertraline HCl (Zoloft) 100 mg DAILY PO 10/26/20 09:00 11/02/20 17:22 DC 11/02/20 09:05 Amantadine HCl (Symmetrel) 100 mg HS PO 10/25/20 23:00 11/03/20 19:45 Non-Formulary Medication (Capsaicin/ Menthol (Salonpas Gel-Patch Hot)) 1 patch DAILY TP 10/26/20 09:00 UNV Divalproex Sodium (Depakote) 1,250 mg HS PO 10/25/20 23:00 10/26/20 13:06 DC 10/25/20 23:18 Insulin Glargine (Lantus Syringe) 16 unit NOON SQ 10/26/20 12:00 10/26/20 16:01 DC 10/26/20 12:00 Amylase/Lipase/ Protease (Zenpep 10,000) 2 cap DAILY PO 10/26/20 09:00 11/03/20 08:38 Meloxicam (Mobic) 15 mg HS PO 10/26/20 21:00 10/29/20 15:47 DC 10/28/20 20:05 Non-Formulary Medication (Insulin Lispro (Humalog)) 10 unit BID94 SQ 10/26/20 09:00 UNV Non-Formulary Medication (Insulin Lispro (Humalog)) 18 unit NOON SQ 10/26/20 12:00 UNV Nicotine (Nicoderm Cq 14mg Patch) 1 patch DAILY TD 10/26/20 09:00 11/03/20 08:39 Divalproex Sodium (Depakote Er) 1,000 mg HS PO 10/26/20 21:00 11/03/20 19:44 Divalproex Sodium (Depakote Er) 250 mg HS PO 10/26/20 21:00 11/03/20 19:44 Glucose (Insta-Glucose) 15 gm PRN Q15MIN PRN PO LOW BLOOD SUGAR 10/26/20 15:45 11/01/20 15:52 Insulin Glargine (Lantus Syringe) 8 unit NOON SQ 10/26/20 16:00 UNV Insulin Human Lispro (HumaLOG) 0-5 UNITS TIDWMEALS SQ 10/27/20 08:00 10/27/20 19:44 DC 10/27/20 17:29 Dextrose (Dextrose 50%-Water Syringe) 12.5 gm PRN Q15MIN PRN IV SEE COMMENTS 10/26/20 16:15 Insulin Human Lispro (HumaLOG) 0-5 UNITS QIDACHS SQ 10/27/20 21:00 10/28/20 11:58 DC 10/27/20 20:47 Insulin Glargine (Lantus Syringe) 10 unit QHS SQ 10/28/20 21:00 10/29/20 15:43 DC 10/28/20 20:07 Insulin Human Lispro (HumaLOG) 0-9 UNITS TIDWMEALS SQ 10/28/20 12:00 11/03/20 17:31 Dextrose (Dextrose 50%-Water Syringe) 12.5 gm PRN Q15MIN PRN IV SEE COMMENTS 10/28/20 12:00 UNV Insulin Human Lispro (HumaLOG) 12 units ONCE SQ 10/28/20 12:00 11/04/20 07:18 DC 10/28/20 12:17 Insulin Glargine (Lantus Syringe) 15 unit QHS SQ 10/29/20 21:00 11/01/20 12:43 DC 10/31/20 21:05 Risperidone (RisperDAL) 1 mg QHS PO 10/31/20 21:00 11/01/20 10:59 DC 10/31/20 20:42 Bupropion HCl (Wellbutrin Xl) 150 mg DAILY PO 11/01/20 09:00 11/02/20 17:22 DC 11/02/20 09:05 Risperidone (RisperDAL) 1.5 mg QHS PO 11/01/20 21:00 11/03/20 19:44 Insulin Glargine (Lantus Syringe) 20 unit QHS SQ 11/01/20 21:00 11/03/20 19:16 DC 11/02/20 21:20 Insulin Human Lispro (HumaLOG) 12 units 1X ONCE SQ 11/01/20 19:45 11/01/20 19:46 DC 11/01/20 19:45 Bupropion HCl (Wellbutrin Xl) 300 mg DAILY PO 11/03/20 09:00 11/03/20 08:40 Sertraline HCl (Zoloft) 100 mg HS PO 11/03/20 21:00 11/03/20 19:45 Insulin Glargine (Lantus Syringe) 25 unit QHS SQ 11/03/20 21:00 11/03/20 20:35 Insulin Human Lispro (HumaLOG) 15 units 1X ONCE SQ 11/03/20 19:30 11/03/20 19:31 DC 11/03/20 19:24 Current Medications Medications (Trade) Dose Ordered Sig/Jenise Route PRN Reason Start Time Stop Time Status Last Admin Dose Admin Bupropion HCl (Wellbutrin Xl) 300 mg DAILY PO 11/03/20 09:00 11/03/20 08:40 Sertraline HCl (Zoloft) 100 mg HS PO 11/03/20 21:00 11/03/20 19:45 Insulin Glargine (Lantus Syringe) 25 unit QHS SQ 11/03/20 21:00 11/03/20 20:35 Insulin Human Lispro (HumaLOG) 15 units 1X ONCE SQ 11/03/20 19:30 11/03/20 19:31 DC 11/03/20 19:24 I have reviewed the current psychotropics carefully including drug interactions. Risk benefit ratio favors no change other than as noted in my dictated progress note. Diagnosis: Problems: (1) Schizoaffective disorder, bipolar type (2) Impulse control disorder, unspecified (3) Mild cognitive impairment (4) Anxiety disorder, unspecified (5) Bipolar disorder, current episode mixed, severe, with psychotic features JESSICA RAMESH MD Nov 04, 2020 08:08
--- NOTE | 2020-11-04 08:30 | PDOC ---
Exam Note: Jaren Note: This note is a late entry for 11/03/2020 covers elements not covered in my initial note. Subjective: The patient was seen individually in the evening of 11/03/2020 with Sal TOBIN, discussed and reviewed the chart. She slept 7 hours previous night. She spends much time in her room but did come out for breakfast. Nursing staff tried to wake her up for breakfast and lunch and she becomes quite irritable initially and then settles down. Blood sugars continue to fluctuate. We will defer to Dr. Hill. Review of Systems: Ambulation impaired in wheelchair. No CV, , pulmonary, eye, ENT system symptoms on review. Mental Status Exam: The patient is oriented to herself and situation. She is extremely anxious, labile, tearful in her mood. Blood sugars are vacillating, may explain some of this. Speech coherent. Abstraction fair. Computation impaired. Language function intact. Attention span short. No suicidal or homicidal ideation. Laboratory Data: Reviewed. Impression: Schizoaffective disorder bipolar type with psychotic features. Anxiety disorder unspecified. Impulse control disorder unspecified. Mild cognitive impairment. Plan: Continue current psychotropics. We have increased the Wellbutrin XL to 300 mg a day. Valproic acid level is therapeutic. Risperdal 1.5 mg h.s. We may need to increase this. Rest unchanged for now. Zoloft has been adjusted. Assessment: Vital Signs/I&O: Vital Signs Date Time Temp Pulse Resp B/P (MAP) Pulse Ox O2 Delivery O2 Flow Rate FiO2 11/04/20 05:47 97.3 65 20 135/83 (100) 93 11/02/20 06:17 Room Air I & O 11/03/20 11/03/20 11/04/20 15:00 23:00 07:00 Intake Total 760 ml 600 ml Balance 760 ml 600 ml Labs: Laboratory Tests Test 11/03/20 11:51 11/03/20 17:17 11/03/20 19:10 11/03/20 20:31 Glucose (Fingerstick) 474 mg/dL (70-99) H 450 mg/dL (70-99) H 512 mg/dL (70-99) *H 378 mg/dL (70-99) H Test 11/04/20 07:19 Glucose (Fingerstick) 175 mg/dL (70-99) H Current Medications: Meds: Laboratory Tests Test 11/03/20 11:51 11/03/20 17:17 11/03/20 19:10 11/03/20 20:31 Glucose (Fingerstick) 474 mg/dL 450 mg/dL 512 mg/dL 378 mg/dL Test 11/04/20 07:19 Glucose (Fingerstick) 175 mg/dL Current Medications Medications (Trade) Dose Ordered Sig/Jenise Route PRN Reason Start Time Stop Time Status Last Admin Dose Admin Acetaminophen (Tylenol) 650 mg PRN Q6HRS PRN PO MILD PAIN / TEMP > 100.3'F 10/25/20 19:00 Multi-Ingredient Ointment (Analgesic [place]) 1 cody PRN QID PRN TP MUSCLE PAIN 10/25/20 19:00 Al Hydroxide/Mg Hydroxide (Mylanta Plus Xs) 15 ml PRN AFTMEALHC PRN PO DYSPEPSIA 10/25/20 19:00 Magnesium Hydroxide (Milk Of Magnesia) 2,400 mg PRN QHS PRN PO CONSTIPATION 10/25/20 19:00 Insulin Human Lispro (HumaLOG) 0-7 UNITS TIDWMEALS SQ 10/26/20 08:00 10/26/20 16:01 DC 10/26/20 12:20 Dextrose (Dextrose 50%-Water Syringe) 12.5 gm PRN Q15MIN PRN IV SEE COMMENTS 10/25/20 22:15 10/26/20 16:01 DC Insulin Human Lispro (HumaLOG) 10 units BID94 SQ 10/26/20 09:00 10/26/20 16:01 DC 10/26/20 09:00 Insulin Human Lispro (HumaLOG) 18 units NOON SQ 10/26/20 12:00 10/26/20 16:01 DC 10/26/20 12:00 Acetaminophen (Tylenol) 1,000 mg DAILY PO 10/26/20 09:00 11/03/20 08:38 Buspirone HCl (Buspar) 10 mg BID PO 10/25/20 23:00 10/31/20 17:02 DC 10/31/20 12:33 Furosemide (Lasix) 20 mg DAILY PO 10/26/20 09:00 11/03/20 08:38 Lorazepam (Ativan) 2 mg PRN Q4HRS PRN PO ANXIETY / AGITATION 10/25/20 23:00 10/30/20 20:05 Risperidone (RisperDAL) 0.75 mg QHS PO 10/25/20 23:00 10/31/20 17:02 DC 10/30/20 20:05 Sertraline HCl (Zoloft) 100 mg DAILY PO 10/26/20 09:00 11/02/20 17:22 DC 11/02/20 09:05 Amantadine HCl (Symmetrel) 100 mg HS PO 10/25/20 23:00 11/03/20 19:45 Non-Formulary Medication (Capsaicin/ Menthol (Salonpas Gel-Patch Hot)) 1 patch DAILY TP 10/26/20 09:00 UNV Divalproex Sodium (Depakote) 1,250 mg HS PO 10/25/20 23:00 10/26/20 13:06 DC 10/25/20 23:18 Insulin Glargine (Lantus Syringe) 16 unit NOON SQ 10/26/20 12:00 10/26/20 16:01 DC 10/26/20 12:00 Amylase/Lipase/ Protease (Zenpep 10,000) 2 cap DAILY PO 10/26/20 09:00 11/03/20 08:38 Meloxicam (Mobic) 15 mg HS PO 10/26/20 21:00 10/29/20 15:47 DC 10/28/20 20:05 Non-Formulary Medication (Insulin Lispro (Humalog)) 10 unit BID94 SQ 10/26/20 09:00 UNV Non-Formulary Medication (Insulin Lispro (Humalog)) 18 unit NOON SQ 10/26/20 12:00 UNV Nicotine (Nicoderm Cq 14mg Patch) 1 patch DAILY TD 10/26/20 09:00 11/03/20 08:39 Divalproex Sodium (Depakote Er) 1,000 mg HS PO 10/26/20 21:00 11/03/20 19:44 Divalproex Sodium (Depakote Er) 250 mg HS PO 10/26/20 21:00 11/03/20 19:44 Glucose (Insta-Glucose) 15 gm PRN Q15MIN PRN PO LOW BLOOD SUGAR 10/26/20 15:45 11/01/20 15:52 Insulin Glargine (Lantus Syringe) 8 unit NOON SQ 10/26/20 16:00 UNV Insulin Human Lispro (HumaLOG) 0-5 UNITS TIDWMEALS SQ 10/27/20 08:00 10/27/20 19:44 DC 10/27/20 17:29 Dextrose (Dextrose 50%-Water Syringe) 12.5 gm PRN Q15MIN PRN IV SEE COMMENTS 10/26/20 16:15 Insulin Human Lispro (HumaLOG) 0-5 UNITS QIDACHS SQ 10/27/20 21:00 10/28/20 11:58 DC 10/27/20 20:47 Insulin Glargine (Lantus Syringe) 10 unit QHS SQ 10/28/20 21:00 10/29/20 15:43 DC 10/28/20 20:07 Insulin Human Lispro (HumaLOG) 0-9 UNITS TIDWMEALS SQ 10/28/20 12:00 11/03/20 17:31 Dextrose (Dextrose 50%-Water Syringe) 12.5 gm PRN Q15MIN PRN IV SEE COMMENTS 10/28/20 12:00 UNV Insulin Human Lispro (HumaLOG) 12 units ONCE SQ 10/28/20 12:00 11/04/20 07:18 DC 10/28/20 12:17 Insulin Glargine (Lantus Syringe) 15 unit QHS SQ 10/29/20 21:00 11/01/20 12:43 DC 10/31/20 21:05 Risperidone (RisperDAL) 1 mg QHS PO 10/31/20 21:00 11/01/20 10:59 DC 10/31/20 20:42 Bupropion HCl (Wellbutrin Xl) 150 mg DAILY PO 11/01/20 09:00 11/02/20 17:22 DC 11/02/20 09:05 Risperidone (RisperDAL) 1.5 mg QHS PO 11/01/20 21:00 11/03/20 19:44 Insulin Glargine (Lantus Syringe) 20 unit QHS SQ 11/01/20 21:00 11/03/20 19:16 DC 11/02/20 21:20 Insulin Human Lispro (HumaLOG) 12 units 1X ONCE SQ 11/01/20 19:45 11/01/20 19:46 DC 11/01/20 19:45 Bupropion HCl (Wellbutrin Xl) 300 mg DAILY PO 11/03/20 09:00 11/03/20 08:40 Sertraline HCl (Zoloft) 100 mg HS PO 11/03/20 21:00 11/03/20 19:45 Insulin Glargine (Lantus Syringe) 25 unit QHS SQ 11/03/20 21:00 11/03/20 20:35 Insulin Human Lispro (HumaLOG) 15 units 1X ONCE SQ 11/03/20 19:30 11/03/20 19:31 DC 11/03/20 19:24 Current Medications Medications (Trade) Dose Ordered Sig/Jenise Route PRN Reason Start Time Stop Time Status Last Admin Dose Admin Bupropion HCl (Wellbutrin Xl) 300 mg DAILY PO 11/03/20 09:00 11/03/20 08:40 Sertraline HCl (Zoloft) 100 mg HS PO 11/03/20 21:00 11/03/20 19:45 Insulin Glargine (Lantus Syringe) 25 unit QHS SQ 11/03/20 21:00 11/03/20 20:35 Insulin Human Lispro (HumaLOG) 15 units 1X ONCE SQ 11/03/20 19:30 11/03/20 19:31 DC 11/03/20 19:24 I have reviewed the current psychotropics carefully including drug interactions. Risk benefit ratio favors no change other than as noted in my dictated progress note. Diagnosis: Problems: (1) Schizoaffective disorder, bipolar type (2) Impulse control disorder, unspecified (3) Mild cognitive impairment (4) Anxiety disorder, unspecified (5) Bipolar disorder, current episode mixed, severe, with psychotic features JESSICA RAMESH MD Nov 04, 2020 08:30
[2020-11-04] MEDS: NICOTINE 14MG PATCH. TD SCH (08:31)
[2020-11-04] MEDS: INSULIN LISPRO 300 UNITS/3 ML VIAL. SQ SCH ×3 (08:32→17:25)
[2020-11-04] MEDS: FUROSEMIDE 20 MG TABLET PO SCH (08:33)
[2020-11-04] MEDS: buPROPion XL 300 MG TAB.ER.24H. PO SCH (08:33)
[2020-11-04] MEDS: LIPASE/PROTEAS/AMYLAS 10/32/42 CAPSULE.DR. PO SCH (08:33)
[2020-11-04] MEDS: ACETAMINOPHEN 500 MG TABLET PO SCH (08:33)
--- NOTE | 2020-11-04 11:23 | NUR ---
Nursing Note: Pt. is pleasantly confused. She continues to be quite disorganized. Pt. is unable to recall conversations that she just had 20-30 minutes ago with nurse. She states she has not seen the doctor and would like to see him today. Pt. is medication compliant. Pt. has had a flat affect and stayed withdrawn and to herself in the day room or in her own room throughout the day.
[2020-11-04 16:01] VITALS: BP 149/90
[2020-11-04] MEDS: DIVALPROEX ER 250 MG TAB.ER.24H. PO SCH (20:13)
[2020-11-04] MEDS: DIVALPROEX ER 500 MG TAB.ER.24H PO SCH (20:13)
[2020-11-04] MEDS: SERTRALINE 100 MG TABLET. PO SCH (20:13)
[2020-11-04] MEDS: AMANTADINE HCL 100 MG PO SCH (20:14)
[2020-11-04] MEDS: risperiDONE 1 MG TABLET. PO SCH (20:14)
[2020-11-04] MEDS: INSULIN GLARGINE SYRINGE. SQ SCH (20:16)
--- NOTE | 2020-11-04 22:07 | PDOC ---
Exam Note: Jaren Note: Please also refer to the separate dictated note~for this date of service dictated separately.~Patient seen individually. Discussed the patient with Nursing staff reviewed the chart.~Reviewed interim history and current functioning. Reviewed vital signs,~Labs/ Radiology~and current medications noted below. Continue current treatment with the changes noted in the dictated addendum note Assessment: Vital Signs/I&O: Vital Signs Date Time Temp Pulse Resp B/P (MAP) Pulse Ox O2 Delivery O2 Flow Rate FiO2 11/04/20 16:01 98.1 77 18 149/90 (109) 98 11/02/20 06:17 Room Air I & O 11/03/20 11/03/20 11/04/20 15:00 23:00 07:00 Intake Total 760 ml 600 ml Balance 760 ml 600 ml Labs: Laboratory Tests Test 11/04/20 07:19 11/04/20 11:59 11/04/20 16:19 11/04/20 19:19 Glucose (Fingerstick) 175 mg/dL (70-99) H 290 mg/dL (70-99) H 213 mg/dL (70-99) H 259 mg/dL (70-99) H Current Medications: Meds: Laboratory Tests Test 11/04/20 07:19 11/04/20 11:59 11/04/20 16:19 11/04/20 19:19 Glucose (Fingerstick) 175 mg/dL 290 mg/dL 213 mg/dL 259 mg/dL Current Medications Medications (Trade) Dose Ordered Sig/Jenise Route PRN Reason Start Time Stop Time Status Last Admin Dose Admin Acetaminophen (Tylenol) 650 mg PRN Q6HRS PRN PO MILD PAIN / TEMP > 100.3'F 10/25/20 19:00 Multi-Ingredient Ointment (Analgesic [place]) 1 cody PRN QID PRN TP MUSCLE PAIN 10/25/20 19:00 Al Hydroxide/Mg Hydroxide (Mylanta Plus Xs) 15 ml PRN AFTMEALHC PRN PO DYSPEPSIA 10/25/20 19:00 Magnesium Hydroxide (Milk Of Magnesia) 2,400 mg PRN QHS PRN PO CONSTIPATION 10/25/20 19:00 Insulin Human Lispro (HumaLOG) 0-7 UNITS TIDWMEALS SQ 10/26/20 08:00 10/26/20 16:01 DC 10/26/20 12:20 Dextrose (Dextrose 50%-Water Syringe) 12.5 gm PRN Q15MIN PRN IV SEE COMMENTS 10/25/20 22:15 10/26/20 16:01 DC Insulin Human Lispro (HumaLOG) 10 units BID94 SQ 10/26/20 09:00 10/26/20 16:01 DC 10/26/20 09:00 Insulin Human Lispro (HumaLOG) 18 units NOON SQ 10/26/20 12:00 10/26/20 16:01 DC 10/26/20 12:00 Acetaminophen (Tylenol) 1,000 mg DAILY PO 10/26/20 09:00 11/04/20 08:33 Buspirone HCl (Buspar) 10 mg BID PO 10/25/20 23:00 10/31/20 17:02 DC 10/31/20 12:33 Furosemide (Lasix) 20 mg DAILY PO 10/26/20 09:00 11/04/20 08:33 Lorazepam (Ativan) 2 mg PRN Q4HRS PRN PO ANXIETY / AGITATION 10/25/20 23:00 10/30/20 20:05 Risperidone (RisperDAL) 0.75 mg QHS PO 10/25/20 23:00 10/31/20 17:02 DC 10/30/20 20:05 Sertraline HCl (Zoloft) 100 mg DAILY PO 10/26/20 09:00 11/02/20 17:22 DC 11/02/20 09:05 Amantadine HCl (Symmetrel) 100 mg HS PO 10/25/20 23:00 11/04/20 20:14 Non-Formulary Medication (Capsaicin/ Menthol (Salonpas Gel-Patch Hot)) 1 patch DAILY TP 10/26/20 09:00 UNV Divalproex Sodium (Depakote) 1,250 mg HS PO 10/25/20 23:00 10/26/20 13:06 DC 10/25/20 23:18 Insulin Glargine (Lantus Syringe) 16 unit NOON SQ 10/26/20 12:00 10/26/20 16:01 DC 10/26/20 12:00 Amylase/Lipase/ Protease (Zenpep 10,000) 2 cap DAILY PO 10/26/20 09:00 11/04/20 08:33 Meloxicam (Mobic) 15 mg HS PO 10/26/20 21:00 10/29/20 15:47 DC 10/28/20 20:05 Non-Formulary Medication (Insulin Lispro (Humalog)) 10 unit BID94 SQ 10/26/20 09:00 UNV Non-Formulary Medication (Insulin Lispro (Humalog)) 18 unit NOON SQ 10/26/20 12:00 UNV Nicotine (Nicoderm Cq 14mg Patch) 1 patch DAILY TD 10/26/20 09:00 11/04/20 08:31 Divalproex Sodium (Depakote Er) 1,000 mg HS PO 10/26/20 21:00 11/04/20 20:13 Divalproex Sodium (Depakote Er) 250 mg HS PO 10/26/20 21:00 11/04/20 20:13 Glucose (Insta-Glucose) 15 gm PRN Q15MIN PRN PO LOW BLOOD SUGAR 10/26/20 15:45 11/01/20 15:52 Insulin Glargine (Lantus Syringe) 8 unit NOON SQ 10/26/20 16:00 UNV Insulin Human Lispro (HumaLOG) 0-5 UNITS TIDWMEALS SQ 10/27/20 08:00 10/27/20 19:44 DC 10/27/20 17:29 Dextrose (Dextrose 50%-Water Syringe) 12.5 gm PRN Q15MIN PRN IV SEE COMMENTS 10/26/20 16:15 Insulin Human Lispro (HumaLOG) 0-5 UNITS QIDACHS SQ 10/27/20 21:00 10/28/20 11:58 DC 10/27/20 20:47 Insulin Glargine (Lantus Syringe) 10 unit QHS SQ 10/28/20 21:00 10/29/20 15:43 DC 10/28/20 20:07 Insulin Human Lispro (HumaLOG) 0-9 UNITS TIDWMEALS SQ 10/28/20 12:00 11/04/20 17:25 Dextrose (Dextrose 50%-Water Syringe) 12.5 gm PRN Q15MIN PRN IV SEE COMMENTS 10/28/20 12:00 UNV Insulin Human Lispro (HumaLOG) 12 units ONCE SQ 10/28/20 12:00 11/04/20 07:18 DC 10/28/20 12:17 Insulin Glargine (Lantus Syringe) 15 unit QHS SQ 10/29/20 21:00 11/01/20 12:43 DC 10/31/20 21:05 Risperidone (RisperDAL) 1 mg QHS PO 10/31/20 21:00 11/01/20 10:59 DC 10/31/20 20:42 Bupropion HCl (Wellbutrin Xl) 150 mg DAILY PO 11/01/20 09:00 11/02/20 17:22 DC 11/02/20 09:05 Risperidone (RisperDAL) 1.5 mg QHS PO 11/01/20 21:00 11/04/20 20:14 Insulin Glargine (Lantus Syringe) 20 unit QHS SQ 11/01/20 21:00 11/03/20 19:16 DC 11/02/20 21:20 Insulin Human Lispro (HumaLOG) 12 units 1X ONCE SQ 11/01/20 19:45 11/01/20 19:46 DC 11/01/20 19:45 Bupropion HCl (Wellbutrin Xl) 300 mg DAILY PO 11/03/20 09:00 11/04/20 08:33 Sertraline HCl (Zoloft) 100 mg HS PO 11/03/20 21:00 11/04/20 20:13 Insulin Glargine (Lantus Syringe) 25 unit QHS SQ 11/03/20 21:00 11/04/20 20:16 Insulin Human Lispro (HumaLOG) 15 units 1X ONCE SQ 11/03/20 19:30 11/03/20 19:31 DC 11/03/20 19:24 Olanzapine (ZyPREXA ZYDIS) 2.5 mg PRN Q2HRS PRN PO PSYCHOSIS 11/04/20 17:45 I have reviewed the current psychotropics carefully including drug interactions. Risk benefit ratio favors no change other than as noted in my dictated progress note. Diagnosis: Problems: (1) Schizoaffective disorder, bipolar type (2) Impulse control disorder, unspecified (3) Mild cognitive impairment (4) Anxiety disorder, unspecified (5) Bipolar disorder, current episode mixed, severe, with psychotic features JESSICA RAMESH MD Nov 04, 2020 22:07
--- NOTE | 2020-11-04 23:06 | NUR ---
Patient is located in her room on assumption of care, awake in bed. She is flat, disorganized, confused. She was compliant with assessments and medications taken whole. No agitation. Patient denies any pain or discomfort. She appears to be sleeping comfortably at present time. Will continue to monitor.
[2020-11-05 06:00] VITALS: BP 147/82
--- NOTE | 2020-11-05 06:46 | PDOC ---
Exam Note: Jaren Note: This note is a late entry for 11/04/2020 covers elements not covered in my initial note. Subjective: The patient was seen individually in the evening of 11/04/2020 with Sal TOBIN, discussed and reviewed the chart. She slept 7-1/2 hours previous night. Previous evening she was crying, tearful, labile in her mood. Short- term memory is impaired. She remains intermittently tearful, almost like she is having pseudobulbar affect. I met with her in her room. Review of Systems: Ambulation impaired in wheelchair. No CV, , pulmonary, eye, ENT system symptoms on review. Mental Status Exam: The patient is awake, alert, oriented to situation. Speech rapid at times. Abstraction fair. Computation impaired. Language function intact. Attention span short. Mood and affect remains labile. No suicidal or homicidal ideation. Laboratory Data: Reviewed. Impression: Schizoaffective disorder bipolar type with psychotic features. Anxiety disorder unspecified. Impulse control disorder unspecified. Mild cognitive impairment. Plan: No change from initial note. We will adjust psychotropics as clinically indicated. Assessment: Vital Signs/I&O: Vital Signs Date Time Temp Pulse Resp B/P (MAP) Pulse Ox O2 Delivery O2 Flow Rate FiO2 11/05/20 06:00 97.6 72 20 147/82 (103) 94 11/02/20 06:17 Room Air I & O 11/04/20 11/04/20 11/05/20 15:00 23:00 07:00 Intake Total 600 ml 540 ml Balance 600 ml 540 ml Labs: Laboratory Tests Test 11/04/20 07:19 11/04/20 11:59 11/04/20 16:19 11/04/20 19:19 Glucose (Fingerstick) 175 mg/dL (70-99) H 290 mg/dL (70-99) H 213 mg/dL (70-99) H 259 mg/dL (70-99) H Current Medications: Meds: Laboratory Tests Test 11/04/20 07:19 11/04/20 11:59 11/04/20 16:19 11/04/20 19:19 Glucose (Fingerstick) 175 mg/dL 290 mg/dL 213 mg/dL 259 mg/dL Current Medications Medications (Trade) Dose Ordered Sig/Jenise Route PRN Reason Start Time Stop Time Status Last Admin Dose Admin Acetaminophen (Tylenol) 650 mg PRN Q6HRS PRN PO MILD PAIN / TEMP > 100.3'F 10/25/20 19:00 Multi-Ingredient Ointment (Analgesic [place]) 1 cody PRN QID PRN TP MUSCLE PAIN 10/25/20 19:00 Al Hydroxide/Mg Hydroxide (Mylanta Plus Xs) 15 ml PRN AFTMEALHC PRN PO DYSPEPSIA 10/25/20 19:00 Magnesium Hydroxide (Milk Of Magnesia) 2,400 mg PRN QHS PRN PO CONSTIPATION 10/25/20 19:00 Insulin Human Lispro (HumaLOG) 0-7 UNITS TIDWMEALS SQ 10/26/20 08:00 10/26/20 16:01 DC 10/26/20 12:20 Dextrose (Dextrose 50%-Water Syringe) 12.5 gm PRN Q15MIN PRN IV SEE COMMENTS 10/25/20 22:15 10/26/20 16:01 DC Insulin Human Lispro (HumaLOG) 10 units BID94 SQ 10/26/20 09:00 10/26/20 16:01 DC 10/26/20 09:00 Insulin Human Lispro (HumaLOG) 18 units NOON SQ 10/26/20 12:00 10/26/20 16:01 DC 10/26/20 12:00 Acetaminophen (Tylenol) 1,000 mg DAILY PO 10/26/20 09:00 11/04/20 08:33 Buspirone HCl (Buspar) 10 mg BID PO 10/25/20 23:00 10/31/20 17:02 DC 10/31/20 12:33 Furosemide (Lasix) 20 mg DAILY PO 10/26/20 09:00 11/04/20 08:33 Lorazepam (Ativan) 2 mg PRN Q4HRS PRN PO ANXIETY / AGITATION 10/25/20 23:00 10/30/20 20:05 Risperidone (RisperDAL) 0.75 mg QHS PO 10/25/20 23:00 10/31/20 17:02 DC 10/30/20 20:05 Sertraline HCl (Zoloft) 100 mg DAILY PO 10/26/20 09:00 11/02/20 17:22 DC 11/02/20 09:05 Amantadine HCl (Symmetrel) 100 mg HS PO 10/25/20 23:00 11/04/20 20:14 Non-Formulary Medication (Capsaicin/ Menthol (Salonpas Gel-Patch Hot)) 1 patch DAILY TP 10/26/20 09:00 UNV Divalproex Sodium (Depakote) 1,250 mg HS PO 10/25/20 23:00 10/26/20 13:06 DC 10/25/20 23:18 Insulin Glargine (Lantus Syringe) 16 unit NOON SQ 10/26/20 12:00 10/26/20 16:01 DC 10/26/20 12:00 Amylase/Lipase/ Protease (Zenpep 10,000) 2 cap DAILY PO 10/26/20 09:00 11/04/20 08:33 Meloxicam (Mobic) 15 mg HS PO 10/26/20 21:00 10/29/20 15:47 DC 10/28/20 20:05 Non-Formulary Medication (Insulin Lispro (Humalog)) 10 unit BID94 SQ 10/26/20 09:00 UNV Non-Formulary Medication (Insulin Lispro (Humalog)) 18 unit NOON SQ 10/26/20 12:00 UNV Nicotine (Nicoderm Cq 14mg Patch) 1 patch DAILY TD 10/26/20 09:00 11/04/20 08:31 Divalproex Sodium (Depakote Er) 1,000 mg HS PO 10/26/20 21:00 11/04/20 20:13 Divalproex Sodium (Depakote Er) 250 mg HS PO 10/26/20 21:00 11/04/20 20:13 Glucose (Insta-Glucose) 15 gm PRN Q15MIN PRN PO LOW BLOOD SUGAR 10/26/20 15:45 11/01/20 15:52 Insulin Glargine (Lantus Syringe) 8 unit NOON SQ 10/26/20 16:00 UNV Insulin Human Lispro (HumaLOG) 0-5 UNITS TIDWMEALS SQ 10/27/20 08:00 10/27/20 19:44 DC 10/27/20 17:29 Dextrose (Dextrose 50%-Water Syringe) 12.5 gm PRN Q15MIN PRN IV SEE COMMENTS 10/26/20 16:15 Insulin Human Lispro (HumaLOG) 0-5 UNITS QIDACHS SQ 10/27/20 21:00 10/28/20 11:58 DC 10/27/20 20:47 Insulin Glargine (Lantus Syringe) 10 unit QHS SQ 10/28/20 21:00 10/29/20 15:43 DC 10/28/20 20:07 Insulin Human Lispro (HumaLOG) 0-9 UNITS TIDWMEALS SQ 10/28/20 12:00 11/04/20 17:25 Dextrose (Dextrose 50%-Water Syringe) 12.5 gm PRN Q15MIN PRN IV SEE COMMENTS 10/28/20 12:00 UNV Insulin Human Lispro (HumaLOG) 12 units ONCE SQ 10/28/20 12:00 11/04/20 07:18 DC 10/28/20 12:17 Insulin Glargine (Lantus Syringe) 15 unit QHS SQ 10/29/20 21:00 11/01/20 12:43 DC 10/31/20 21:05 Risperidone (RisperDAL) 1 mg QHS PO 10/31/20 21:00 11/01/20 10:59 DC 10/31/20 20:42 Bupropion HCl (Wellbutrin Xl) 150 mg DAILY PO 11/01/20 09:00 11/02/20 17:22 DC 11/02/20 09:05 Risperidone (RisperDAL) 1.5 mg QHS PO 11/01/20 21:00 11/04/20 20:14 Insulin Glargine (Lantus Syringe) 20 unit QHS SQ 11/01/20 21:00 11/03/20 19:16 DC 11/02/20 21:20 Insulin Human Lispro (HumaLOG) 12 units 1X ONCE SQ 11/01/20 19:45 11/01/20 19:46 DC 11/01/20 19:45 Bupropion HCl (Wellbutrin Xl) 300 mg DAILY PO 11/03/20 09:00 11/04/20 08:33 Sertraline HCl (Zoloft) 100 mg HS PO 11/03/20 21:00 11/04/20 20:13 Insulin Glargine (Lantus Syringe) 25 unit QHS SQ 11/03/20 21:00 11/04/20 20:16 Insulin Human Lispro (HumaLOG) 15 units 1X ONCE SQ 11/03/20 19:30 11/03/20 19:31 DC 11/03/20 19:24 Olanzapine (ZyPREXA ZYDIS) 2.5 mg PRN Q2HRS PRN PO PSYCHOSIS 11/04/20 17:45 I have reviewed the current psychotropics carefully including drug interactions. Risk benefit ratio favors no change other than as noted in my dictated progress note. Diagnosis: Problems: (1) Schizoaffective disorder, bipolar type (2) Impulse control disorder, unspecified (3) Mild cognitive impairment (4) Anxiety disorder, unspecified (5) Bipolar disorder, current episode mixed, severe, with psychotic features JESSICA RAMESH MD Nov 05, 2020 06:46
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
[2020-11-05] MEDS: INSULIN LISPRO 300 UNITS/3 ML VIAL. SQ SCH ×3 (07:55→17:24)
[2020-11-05] MEDS: buPROPion XL 300 MG TAB.ER.24H. PO SCH (08:10)
[2020-11-05] MEDS: ACETAMINOPHEN 500 MG TABLET PO SCH (08:10)
[2020-11-05] MEDS: NICOTINE 14MG PATCH. TD SCH (08:10)
[2020-11-05] MEDS: LIPASE/PROTEAS/AMYLAS 10/32/42 CAPSULE.DR. PO SCH (08:11)
[2020-11-05] MEDS: FUROSEMIDE 20 MG TABLET PO SCH (08:11)
--- NOTE | 2020-11-05 08:20 | NUR ---
Pt observed in quiet hallway sitting in a chair. She appears calm and seems to be falling asleep. Morning medication and one time order for Zyprexa 10 mg administered. Pt is med compliant. This nurse asked pt if she was willing and able to refrain from physical/verbal aggression when she is around patients and staff, pt verbalized willingness. She does not appear to remember events that occurred less than 1 hour prior, and is asking to talk to family and have a book to read. She is absent of visible injuries and does not appear to be in physical/emotional distress. Pt accompanied this nurse out of the quiet faye and to the dining room so she could have breakfast. Bathroom offered to pt prior to breakfast, but she declined. Seclusion has ended.
[2020-11-05] MEDS ORDERED: INSULIN LISPRO 300 UNITS/3 ML VIAL. SQ SCH (12:30)
[2020-11-05] MEDS ORDERED: INSULIN LISPRO 300 UNITS/3 ML VIAL. SQ ONE (12:45)
[2020-11-05 15:42] VITALS: BP 163/78
[2020-11-05] MEDS: DIVALPROEX ER 250 MG TAB.ER.24H. PO SCH (20:44)
[2020-11-05] MEDS: DIVALPROEX ER 500 MG TAB.ER.24H PO SCH (20:44)
[2020-11-05] MEDS: SERTRALINE 100 MG TABLET. PO SCH (20:45)
[2020-11-05] MEDS: risperiDONE 2 MG TABLET. PO SCH (20:47)
[2020-11-05] MEDS: AMANTADINE HCL 100 MG PO SCH (20:52)
[2020-11-05] MEDS: INSULIN GLARGINE SYRINGE. SQ SCH (21:36)
--- NOTE | 2020-11-05 22:04 | PDOC ---
Exam Note: Jaren Note: Please also refer to the separate dictated note~for this date of service dictated separately.~Patient seen individually. Discussed the patient with Nursing staff reviewed the chart.~Reviewed interim history and current functioning. Reviewed vital signs,~Labs/ Radiology~and current medications noted below. Continue current treatment with the changes noted in the dictated addendum note Assessment: Vital Signs/I&O: Vital Signs Date Time Temp Pulse Resp B/P (MAP) Pulse Ox O2 Delivery O2 Flow Rate FiO2 11/05/20 15:42 98.9 88 18 163/78 (106) 96 11/02/20 06:17 Room Air I & O 11/04/20 11/04/20 11/05/20 15:00 23:00 07:00 Intake Total 600 ml 540 ml Balance 600 ml 540 ml Labs: Laboratory Tests Test 11/05/20 07:29 11/05/20 11:16 11/05/20 16:37 11/05/20 18:54 Glucose (Fingerstick) 118 mg/dL (70-99) H 388 mg/dL (70-99) H 184 mg/dL (70-99) H 231 mg/dL (70-99) H Current Medications: Meds: Laboratory Tests Test 11/05/20 07:29 11/05/20 11:16 11/05/20 16:37 11/05/20 18:54 Glucose (Fingerstick) 118 mg/dL 388 mg/dL 184 mg/dL 231 mg/dL Current Medications Medications (Trade) Dose Ordered Sig/Jenise Route PRN Reason Start Time Stop Time Status Last Admin Dose Admin Acetaminophen (Tylenol) 650 mg PRN Q6HRS PRN PO MILD PAIN / TEMP > 100.3'F 10/25/20 19:00 Multi-Ingredient Ointment (Analgesic [place]) 1 cody PRN QID PRN TP MUSCLE PAIN 10/25/20 19:00 Al Hydroxide/Mg Hydroxide (Mylanta Plus Xs) 15 ml PRN AFTMEALHC PRN PO DYSPEPSIA 10/25/20 19:00 Magnesium Hydroxide (Milk Of Magnesia) 2,400 mg PRN QHS PRN PO CONSTIPATION 10/25/20 19:00 Insulin Human Lispro (HumaLOG) 0-7 UNITS TIDWMEALS SQ 10/26/20 08:00 10/26/20 16:01 DC 10/26/20 12:20 Dextrose (Dextrose 50%-Water Syringe) 12.5 gm PRN Q15MIN PRN IV SEE COMMENTS 10/25/20 22:15 10/26/20 16:01 DC Insulin Human Lispro (HumaLOG) 10 units BID94 SQ 10/26/20 09:00 10/26/20 16:01 DC 10/26/20 09:00 Insulin Human Lispro (HumaLOG) 18 units NOON SQ 10/26/20 12:00 10/26/20 16:01 DC 10/26/20 12:00 Acetaminophen (Tylenol) 1,000 mg DAILY PO 10/26/20 09:00 11/05/20 08:10 Buspirone HCl (Buspar) 10 mg BID PO 10/25/20 23:00 10/31/20 17:02 DC 10/31/20 12:33 Furosemide (Lasix) 20 mg DAILY PO 10/26/20 09:00 11/05/20 08:11 Lorazepam (Ativan) 2 mg PRN Q4HRS PRN PO ANXIETY / AGITATION 10/25/20 23:00 10/30/20 20:05 Risperidone (RisperDAL) 0.75 mg QHS PO 10/25/20 23:00 10/31/20 17:02 DC 10/30/20 20:05 Sertraline HCl (Zoloft) 100 mg DAILY PO 10/26/20 09:00 11/02/20 17:22 DC 11/02/20 09:05 Amantadine HCl (Symmetrel) 100 mg HS PO 10/25/20 23:00 11/05/20 20:52 Non-Formulary Medication (Capsaicin/ Menthol (Salonpas Gel-Patch Hot)) 1 patch DAILY TP 10/26/20 09:00 UNV Divalproex Sodium (Depakote) 1,250 mg HS PO 10/25/20 23:00 10/26/20 13:06 DC 10/25/20 23:18 Insulin Glargine (Lantus Syringe) 16 unit NOON SQ 10/26/20 12:00 10/26/20 16:01 DC 10/26/20 12:00 Amylase/Lipase/ Protease (Zenpep 10,000) 2 cap DAILY PO 10/26/20 09:00 11/05/20 08:11 Meloxicam (Mobic) 15 mg HS PO 10/26/20 21:00 10/29/20 15:47 DC 10/28/20 20:05 Non-Formulary Medication (Insulin Lispro (Humalog)) 10 unit BID94 SQ 10/26/20 09:00 UNV Non-Formulary Medication (Insulin Lispro (Humalog)) 18 unit NOON SQ 10/26/20 12:00 UNV Nicotine (Nicoderm Cq 14mg Patch) 1 patch DAILY TD 10/26/20 09:00 11/05/20 08:10 Divalproex Sodium (Depakote Er) 1,000 mg HS PO 10/26/20 21:00 11/05/20 20:44 Divalproex Sodium (Depakote Er) 250 mg HS PO 10/26/20 21:00 11/05/20 20:44 Glucose (Insta-Glucose) 15 gm PRN Q15MIN PRN PO LOW BLOOD SUGAR 10/26/20 15:45 11/01/20 15:52 Insulin Glargine (Lantus Syringe) 8 unit NOON SQ 10/26/20 16:00 UNV Insulin Human Lispro (HumaLOG) 0-5 UNITS TIDWMEALS SQ 10/27/20 08:00 10/27/20 19:44 DC 10/27/20 17:29 Dextrose (Dextrose 50%-Water Syringe) 12.5 gm PRN Q15MIN PRN IV SEE COMMENTS 10/26/20 16:15 Insulin Human Lispro (HumaLOG) 0-5 UNITS QIDACHS SQ 10/27/20 21:00 10/28/20 11:58 DC 10/27/20 20:47 Insulin Glargine (Lantus Syringe) 10 unit QHS SQ 10/28/20 21:00 10/29/20 15:43 DC 10/28/20 20:07 Insulin Human Lispro (HumaLOG) 0-9 UNITS TIDWMEALS SQ 10/28/20 12:00 11/05/20 17:24 Dextrose (Dextrose 50%-Water Syringe) 12.5 gm PRN Q15MIN PRN IV SEE COMMENTS 10/28/20 12:00 UNV Insulin Human Lispro (HumaLOG) 12 units ONCE SQ 10/28/20 12:00 11/04/20 07:18 DC 10/28/20 12:17 Insulin Glargine (Lantus Syringe) 15 unit QHS SQ 10/29/20 21:00 11/01/20 12:43 DC 10/31/20 21:05 Risperidone (RisperDAL) 1 mg QHS PO 10/31/20 21:00 11/01/20 10:59 DC 10/31/20 20:42 Bupropion HCl (Wellbutrin Xl) 150 mg DAILY PO 11/01/20 09:00 11/02/20 17:22 DC 11/02/20 09:05 Risperidone (RisperDAL) 1.5 mg QHS PO 11/01/20 21:00 11/05/20 17:15 DC 11/04/20 20:14 Insulin Glargine (Lantus Syringe) 20 unit QHS SQ 11/01/20 21:00 11/03/20 19:16 DC 11/02/20 21:20 Insulin Human Lispro (HumaLOG) 12 units 1X ONCE SQ 11/01/20 19:45 11/01/20 19:46 DC 11/01/20 19:45 Bupropion HCl (Wellbutrin Xl) 300 mg DAILY PO 11/03/20 09:00 11/05/20 08:10 Sertraline HCl (Zoloft) 100 mg HS PO 11/03/20 21:00 11/05/20 20:45 Insulin Glargine (Lantus Syringe) 25 unit QHS SQ 11/03/20 21:00 11/05/20 21:36 Insulin Human Lispro (HumaLOG) 15 units 1X ONCE SQ 11/03/20 19:30 11/03/20 19:31 DC 11/03/20 19:24 Olanzapine (ZyPREXA ZYDIS) 2.5 mg PRN Q2HRS PRN PO PSYCHOSIS 11/04/20 17:45 Olanzapine (ZyPREXA ZYDIS) 10 mg 1X ONCE PO 11/05/20 07:45 11/05/20 08:02 DC 11/05/20 08:10 Insulin Human Lispro (HumaLOG) 16 units ONCE SQ 11/05/20 12:30 11/05/20 12:30 DC Insulin Human Lispro (HumaLOG) 7 units 1X ONCE SQ 11/05/20 12:45 11/05/20 12:46 DC 11/05/20 13:09 Risperidone (RisperDAL) 2 mg QHS PO 11/05/20 21:00 11/05/20 20:47 Current Medications Medications (Trade) Dose Ordered Sig/Jenise Route PRN Reason Start Time Stop Time Status Last Admin Dose Admin Olanzapine (ZyPREXA ZYDIS) 10 mg 1X ONCE PO 11/05/20 07:45 11/05/20 08:02 DC 11/05/20 08:10 Insulin Human Lispro (HumaLOG) 7 units 1X ONCE SQ 11/05/20 12:45 11/05/20 12:46 DC 11/05/20 13:09 Risperidone (RisperDAL) 2 mg QHS PO 11/05/20 21:00 11/05/20 20:47 I have reviewed the current psychotropics carefully including drug interactions. Risk benefit ratio favors no change other than as noted in my dictated progress note. Diagnosis: Problems: (1) Schizoaffective disorder, bipolar type (2) Impulse control disorder, unspecified (3) Mild cognitive impairment (4) Anxiety disorder, unspecified (5) Bipolar disorder, current episode mixed, severe, with psychotic features JESSICA RAMESH MD Nov 05, 2020 22:04
--- NOTE | 2020-11-05 22:10 | NUR ---
Nursing Note The patient was located in her room for her assessment and medication pass. The patient was compliant with her medication and took them whole. The patient was cooperative with her assessment and was able to recall name and location. The patient was pleasant during interactions with this nurse. The patient reports that she does not feel that she will continue her current medications when she discharges. The patient would also like education on how to do her insulin shots on her own. The patient would like a copy of her medications when she discharges. The patient is currently sleeping in her room.
[2020-11-06 07:00] LABS: ALBUMIN 3.4 g/dL (3.4-5.0); ALBUMIN/GLOBULIN RATIO 0.9 (1.0-1.7); CALCIUM 9.3 mg/dL (8.5-10.1); CREATININE 0.9 mg/dL (0.6-1.0); GFR 77.5; POTASSIUM 4.2 mmol/L (3.5-5.1); TOTAL BILIRUBIN 0.2 mg/dL (0.2-1.0); TOTAL PROTEIN 7.1 g/dL (6.4-8.2)
[2020-11-06 07:05] LABS: BASO % 1 % (0-3); EOS # 0.1 x10^3/uL (0.0-0.7); EOS % 1 % (0-3); HEMATOCRIT 36.1 % (36.0-47.0); HEMOGLOBIN 11.8 g/dL (12.0-15.5); LYMPH # 2.4 x10^3/uL (1.0-4.8); LYMPH % 43 % (24-48); MEAN CORPUSCULAR HEMOGLOBIN 30 pg (25-35); MEAN CORPUSCULAR HGB CONC 33 g/dL (31-37); MEAN CORPUSCULAR VOLUME 90 fL (79-100); MONO # 0.5 x10^3/uL (0.0-1.1); MONO % 9 % (0-9); NEUT # 2.6 x10^3uL (1.8-7.7); NEUT % 47 % (31-73); PLATELET COUNT 212 x10^3/uL (140-400); RED BLOOD COUNT 4.01 x10^6/uL (3.50-5.40); RED CELL DISTRIBUTION WIDTH 14.2 % (11.5-14.5); WHITE BLOOD COUNT 5.5 x10^3/uL (4.0-11.0)
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
[2020-11-06] MEDS: DEXTROSE ORAL GEL 15 GM TUBE. PO PRN (07:38)
--- NOTE | 2020-11-06 07:38 | NUR ---
Lab called with critical results at 07 for blood glucose of 43. Pt was given [address] Hill paged and notified at 0722. Orders received to recheck blood glucose at 0900.
[2020-11-06] MEDS: INSULIN LISPRO 300 UNITS/3 ML VIAL. SQ SCH ×3 (08:00→18:09)
[2020-11-06] MEDS: ACETAMINOPHEN 500 MG TABLET PO SCH (09:00)
[2020-11-06] MEDS: FUROSEMIDE 20 MG TABLET PO SCH (09:00)
[2020-11-06] MEDS: buPROPion XL 300 MG TAB.ER.24H. PO SCH (09:00)
[2020-11-06] MEDS: LIPASE/PROTEAS/AMYLAS 10/32/42 CAPSULE.DR. PO SCH (09:01)
[2020-11-06] MEDS: NICOTINE 14MG PATCH. TD SCH (09:01)
[2020-11-06 09:16] VITALS: BP 116/79
--- NOTE | 2020-11-06 11:47 | NUR ---
Nursing Note Patient has been med compliant and allowed this fiction and nonfiction prose writer to perform assessment. Patient other man not very sociable and withdrawn to self in room. No other acute concerns.
[2020-11-06 16:03] VITALS: BP 131/85
[2020-11-06] MEDS: DIVALPROEX ER 250 MG TAB.ER.24H. PO SCH (20:44)
[2020-11-06] MEDS: risperiDONE 2 MG TABLET. PO SCH (20:44)
[2020-11-06] MEDS: AMANTADINE HCL 100 MG PO SCH (20:44)
[2020-11-06] MEDS: SERTRALINE 100 MG TABLET. PO SCH (20:44)
[2020-11-06] MEDS: DIVALPROEX ER 500 MG TAB.ER.24H PO SCH (20:44)
--- NOTE | 2020-11-06 22:03 | PDOC ---
Exam Note: Jaren Note: Please also refer to the separate dictated note~for this date of service dictated separately.~Patient seen individually. Discussed the patient with Nursing staff reviewed the chart.~Reviewed interim history and current functioning. Reviewed vital signs,~Labs/ Radiology~and current medications noted below. Continue current treatment with the changes noted in the dictated addendum note Assessment: Vital Signs/I&O: Vital Signs Date Time Temp Pulse Resp B/P (MAP) Pulse Ox O2 Delivery O2 Flow Rate FiO2 11/06/20 16:03 97.8 80 16 131/85 (100) 97 11/02/20 06:17 Room Air I & O 11/05/20 11/05/20 11/06/20 15:00 23:00 07:00 Intake Total 600 ml 540 ml Balance 600 ml 540 ml Labs: Laboratory Tests Test 11/06/20 06:14 11/06/20 07:44 11/06/20 11:12 11/06/20 11:48 White Blood Count 5.5 x10^3/uL (4.0-11.0) Red Blood Count 4.01 x10^6/uL (3.50-5.40) Hemoglobin 11.8 g/dL (12.0-15.5) L Hematocrit 36.1 % (36.0-47.0) Mean Corpuscular Volume 90 fL (79-100) Mean Corpuscular Hemoglobin 30 pg (25-35) Mean Corpuscular Hemoglobin Concent 33 g/dL (31-37) Red Cell Distribution Width 14.2 % (11.5-14.5) Platelet Count 212 x10^3/uL (140-400) Neutrophils (%) (Auto) 47 % (31-73) Lymphocytes (%) (Auto) 43 % (24-48) Monocytes (%) (Auto) 9 % (0-9) Eosinophils (%) (Auto) 1 % (0-3) Basophils (%) (Auto) 1 % (0-3) Neutrophils # (Auto) 2.6 x10^3uL (1.8-7.7) Lymphocytes # (Auto) 2.4 x10^3/uL (1.0-4.8) Monocytes # (Auto) 0.5 x10^3/uL (0.0-1.1) Eosinophils # (Auto) 0.1 x10^3/uL (0.0-0.7) Basophils # (Auto) 0.0 x10^3/uL (0.0-0.2) Sodium Level 148 mmol/L (136-145) H Potassium Level 4.2 mmol/L (3.5-5.1) Chloride Level 111 mmol/L (98-107) H Carbon Dioxide Level 29 mmol/L (21-32) Anion Gap 8 (6-14) Blood Urea Nitrogen 14 mg/dL (7-20) Creatinine 0.9 mg/dL (0.6-1.0) Estimated GFR (Cockcroft-Gault) 77.5 BUN/Creatinine Ratio 16 (6-20) Glucose Level 43 mg/dL (70-99) L Calcium Level 9.3 mg/dL (8.5-10.1) Total Bilirubin 0.2 mg/dL (0.2-1.0) Aspartate Amino Transferase (AST) 11 U/L (15-37) L Alanine Aminotransferase (ALT) 19 U/L (14-59) Alkaline Phosphatase 156 U/L (46-116) H Total Protein 7.1 g/dL (6.4-8.2) Albumin 3.4 g/dL (3.4-5.0) Albumin/Globulin Ratio 0.9 (1.0-1.7) L Glucose (Fingerstick) 135 mg/dL (70-99) H 171 mg/dL (70-99) H 161 mg/dL (70-99) H Test 11/06/20 16:51 11/06/20 19:21 Glucose (Fingerstick) 211 mg/dL (70-99) H 261 mg/dL (70-99) H Current Medications: Meds: Laboratory Tests Test 11/06/20 06:14 11/06/20 07:44 11/06/20 11:12 11/06/20 11:48 White Blood Count 5.5 x10^3/uL Red Blood Count 4.01 x10^6/uL Hemoglobin 11.8 g/dL Hematocrit 36.1 % Mean Corpuscular Volume 90 fL Mean Corpuscular Hemoglobin 30 pg Mean Corpuscular Hemoglobin Concent 33 g/dL Red Cell Distribution Width 14.2 % Platelet Count 212 x10^3/uL Neutrophils (%) (Auto) 47 % Lymphocytes (%) (Auto) 43 % Monocytes (%) (Auto) 9 % Eosinophils (%) (Auto) 1 % Basophils (%) (Auto) 1 % Neutrophils # (Auto) 2.6 x10^3uL Lymphocytes # (Auto) 2.4 x10^3/uL Monocytes # (Auto) 0.5 x10^3/uL Eosinophils # (Auto) 0.1 x10^3/uL Basophils # (Auto) 0.0 x10^3/uL Sodium Level 148 mmol/L Potassium Level 4.2 mmol/L Chloride Level 111 mmol/L Carbon Dioxide Level 29 mmol/L Anion Gap 8 Blood Urea Nitrogen 14 mg/dL Creatinine 0.9 mg/dL Estimated GFR (Cockcroft-Gault) 77.5 BUN/Creatinine Ratio 16 Glucose Level 43 mg/dL Calcium Level 9.3 mg/dL Total Bilirubin 0.2 mg/dL Aspartate Amino Transf (AST/SGOT) 11 U/L Alanine Aminotransferase (ALT/SGPT) 19 U/L Alkaline Phosphatase 156 U/L Total Protein 7.1 g/dL Albumin 3.4 g/dL Albumin/Globulin Ratio 0.9 Glucose (Fingerstick) 135 mg/dL 171 mg/dL 161 mg/dL Test 11/06/20 16:51 11/06/20 19:21 Glucose (Fingerstick) 211 mg/dL 261 mg/dL Current Medications Medications (Trade) Dose Ordered Sig/Jenise Route PRN Reason Start Time Stop Time Status Last Admin Dose Admin Acetaminophen (Tylenol) 650 mg PRN Q6HRS PRN PO MILD PAIN / TEMP > 100.3'F 10/25/20 19:00 Multi-Ingredient Ointment (Analgesic [place]) 1 cody PRN QID PRN TP MUSCLE PAIN 10/25/20 19:00 Al Hydroxide/Mg Hydroxide (Mylanta Plus Xs) 15 ml PRN AFTMEALHC PRN PO DYSPEPSIA 10/25/20 19:00 Magnesium Hydroxide (Milk Of Magnesia) 2,400 mg PRN QHS PRN PO CONSTIPATION 10/25/20 19:00 Insulin Human Lispro (HumaLOG) 0-7 UNITS TIDWMEALS SQ 10/26/20 08:00 10/26/20 16:01 DC 10/26/20 12:20 Dextrose (Dextrose 50%-Water Syringe) 12.5 gm PRN Q15MIN PRN IV SEE COMMENTS 10/25/20 22:15 10/26/20 16:01 DC Insulin Human Lispro (HumaLOG) 10 units BID94 SQ 10/26/20 09:00 10/26/20 16:01 DC 10/26/20 09:00 Insulin Human Lispro (HumaLOG) 18 units NOON SQ 10/26/20 12:00 10/26/20 16:01 DC 10/26/20 12:00 Acetaminophen (Tylenol) 1,000 mg DAILY PO 10/26/20 09:00 11/06/20 09:00 Buspirone HCl (Buspar) 10 mg BID PO 10/25/20 23:00 10/31/20 17:02 DC 10/31/20 12:33 Furosemide (Lasix) 20 mg DAILY PO 10/26/20 09:00 11/06/20 09:00 Lorazepam (Ativan) 2 mg PRN Q4HRS PRN PO ANXIETY / AGITATION 10/25/20 23:00 10/30/20 20:05 Risperidone (RisperDAL) 0.75 mg QHS PO 10/25/20 23:00 10/31/20 17:02 DC 10/30/20 20:05 Sertraline HCl (Zoloft) 100 mg DAILY PO 10/26/20 09:00 11/02/20 17:22 DC 11/02/20 09:05 Amantadine HCl (Symmetrel) 100 mg HS PO 10/25/20 23:00 11/06/20 20:44 Non-Formulary Medication (Capsaicin/ Menthol (Salonpas Gel-Patch Hot)) 1 patch DAILY TP 10/26/20 09:00 UNV Divalproex Sodium (Depakote) 1,250 mg HS PO 10/25/20 23:00 10/26/20 13:06 DC 10/25/20 23:18 Insulin Glargine (Lantus Syringe) 16 unit NOON SQ 10/26/20 12:00 10/26/20 16:01 DC 10/26/20 12:00 Amylase/Lipase/ Protease (Zenpep 10,000) 2 cap DAILY PO 10/26/20 09:00 11/06/20 09:01 Meloxicam (Mobic) 15 mg HS PO 10/26/20 21:00 7//21 15:47 DC 10/28/20 20:05 Non-Formulary Medication (Insulin Lispro (Humalog)) 10 unit BID94 SQ 10/26/20 09:00 UNV Non-Formulary Medication (Insulin Lispro (Humalog)) 18 unit NOON SQ 10/26/20 12:00 UNV Nicotine (Nicoderm Cq 14mg Patch) 1 patch DAILY TD 10/26/20 09:00 11/06/20 09:01 Divalproex Sodium (Depakote Er) 1,000 mg HS PO 10/26/20 21:00 11/06/20 20:44 Divalproex Sodium (Depakote Er) 250 mg HS PO 10/26/20 21:00 11/06/20 20:44 Glucose (Insta-Glucose) 15 gm PRN Q15MIN PRN PO LOW BLOOD SUGAR 10/26/20 15:45 11/06/20 07:38 Insulin Glargine (Lantus Syringe) 8 unit NOON SQ 10/26/20 16:00 UNV Insulin Human Lispro (HumaLOG) 0-5 UNITS TIDWMEALS SQ 10/27/20 08:00 10/27/20 19:44 DC 10/27/20 17:29 Dextrose (Dextrose 50%-Water Syringe) 12.5 gm PRN Q15MIN PRN IV SEE COMMENTS 10/26/20 16:15 Insulin Human Lispro (HumaLOG) 0-5 UNITS QIDACHS SQ 10/27/20 21:00 10/28/20 11:58 DC 10/27/20 20:47 Insulin Glargine (Lantus Syringe) 10 unit QHS SQ 10/28/20 21:00 10/29/20 15:43 DC 10/28/20 20:07 Insulin Human Lispro (HumaLOG) 0-9 UNITS TIDWMEALS SQ 10/28/20 12:00 11/06/20 18:09 Dextrose (Dextrose 50%-Water Syringe) 12.5 gm PRN Q15MIN PRN IV SEE COMMENTS 10/28/20 12:00 UNV Insulin Human Lispro (HumaLOG) 12 units ONCE SQ 10/28/20 12:00 11/04/20 07:18 DC 10/28/20 12:17 Insulin Glargine (Lantus Syringe) 15 unit QHS SQ 10/29/20 21:00 11/01/20 12:43 DC 10/31/20 21:05 Risperidone (RisperDAL) 1 mg QHS PO 10/31/20 21:00 11/01/20 10:59 DC 10/31/20 20:42 Bupropion HCl (Wellbutrin Xl) 150 mg DAILY PO 11/01/20 09:00 11/02/20 17:22 DC 11/02/20 09:05 Risperidone (RisperDAL) 1.5 mg QHS PO 11/01/20 21:00 11/05/20 17:15 DC 11/04/20 20:14 Insulin Glargine (Lantus Syringe) 20 unit QHS SQ 11/01/20 21:00 11/03/20 19:16 DC 11/02/20 21:20 Insulin Human Lispro (HumaLOG) 12 units 1X ONCE SQ 11/01/20 19:45 11/01/20 19:46 DC 11/01/20 19:45 Bupropion HCl (Wellbutrin Xl) 300 mg DAILY PO 11/03/20 09:00 11/06/20 09:00 Sertraline HCl (Zoloft) 100 mg HS PO 11/03/20 21:00 11/06/20 20:44 Insulin Glargine (Lantus Syringe) 25 unit QHS SQ 11/03/20 21:00 11/06/20 10:19 DC 11/05/20 21:36 Insulin Human Lispro (HumaLOG) 15 units 1X ONCE SQ 11/03/20 19:30 11/03/20 19:31 DC 11/03/20 19:24 Olanzapine (ZyPREXA ZYDIS) 2.5 mg PRN Q2HRS PRN PO PSYCHOSIS 11/04/20 17:45 Olanzapine (ZyPREXA ZYDIS) 10 mg 1X ONCE PO 11/05/20 07:45 11/05/20 08:02 DC 11/05/20 08:10 Insulin Human Lispro (HumaLOG) 16 units ONCE SQ 11/05/20 12:30 11/05/20 12:30 DC Insulin Human Lispro (HumaLOG) 7 units 1X ONCE SQ 11/05/20 12:45 11/05/20 12:46 DC 11/05/20 13:09 Risperidone (RisperDAL) 2 mg QHS PO 11/05/20 21:00 11/06/20 20:44 Insulin Glargine (Lantus Syringe) 20 unit QHS SQ 11/06/20 21:00 I have reviewed the current psychotropics carefully including drug interactions. Risk benefit ratio favors no change other than as noted in my dictated progress note. Diagnosis: Problems: (1) Schizoaffective disorder, bipolar type (2) Impulse control disorder, unspecified (3) Mild cognitive impairment (4) Anxiety disorder, unspecified (5) Bipolar disorder, current episode mixed, severe, with psychotic features JESSICA RAMESH MD Nov 06, 2020 22:03
[2020-11-06] MEDS: INSULIN GLARGINE SYRINGE. SQ SCH (22:31)
--- NOTE | 2020-11-06 23:19 | CONS ---
DATE OF CONSULTATION: 11/06/2020 ATTENDING PHYSICIAN: Dr. Subramanian. We are following along this patient's course. Her blood sugars have been labile either too high or too low. Yesterday, she reported a blood sugar of 388. We administered some extra regular insulin, came down to 184 and 231. This morning we had a low blood sugar of 43 mg/dL. The patient is not symptomatic. She was given glucose tablets and repeat blood sugar in the next 2 hours later was 135 mg/dL. The patient remains asymptomatic. I reviewed her regimen. At this time, she is getting 25 units of Lantus at bedtime. I would recommend decreasing the Lantus to 20 units at bedtime and continuation of sliding scale. Hopefully, this will alleviate some of the hypoglycemia in the morning. GEE DR: Norberto TID: [id number]
--- NOTE | 2020-11-07 03:23 | NUR ---
Nursing Note The patient was located in her room for her assessment and medication pass. The patient took her medication whole and was pleasant during interactions. The patient was curious about her medications and requested this nurse to explain the purpose of her medications. The patient was alert to name and that she was in the hospital and year. The patient is currently sleeping in her room.
[2020-11-07 06:20] VITALS: BP 127/75
--- NOTE | 2020-11-07 06:58 | PDOC ---
Exam Note: Jaren Note: This note is a late entry for 11/06/2020 covers elements not covered in my initial note. Subjective: The patient was seen individually in the evening of 11/06/2020 with Oliver TOBIN, discussed and reviewed the chart. She slept 6-1/2 hours previous night. Overall the patient has done well. I met with her in the dayroom. She was pleasant, cooperative, verbal, remembered our conversation from yesterday about her family at [place]. Review of Systems: Ambulation impaired in wheelchair. No CV, , pulmonary, eye, ENT system symptoms on review. Mental Status Exam: The patient is reasonably oriented. Speech coherent. Abstraction fair. Computation impaired. Language function intact. Attention span fair. Mood and affect improved, quite animated, verbal, interactive, appropriate. No suicidal or homicidal ideation. Laboratory Data: Reviewed. Impression: Schizoaffective disorder bipolar type with psychotic features. Anxiety disorder unspecified. Impulse control disorder unspecified. Mild cognitive impairment. Plan: No change from initial note. Assessment: Vital Signs/I&O: Vital Signs Date Time Temp Pulse Resp B/P (MAP) Pulse Ox O2 Delivery O2 Flow Rate FiO2 11/07/20 06:20 97.1 72 20 127/75 (92) 99 11/02/20 06:17 Room Air I & O 11/06/20 11/06/20 11/07/20 15:00 23:00 07:00 Intake Total 480 ml 420 ml Balance 480 ml 420 ml Labs: Laboratory Tests Test 11/06/20 07:44 11/06/20 11:12 11/06/20 11:48 11/06/20 16:51 Glucose (Fingerstick) 135 mg/dL (70-99) H 171 mg/dL (70-99) H 161 mg/dL (70-99) H 211 mg/dL (70-99) H Test 11/06/20 19:21 Glucose (Fingerstick) 261 mg/dL (70-99) H Current Medications: Meds: Laboratory Tests Test 11/06/20 07:44 11/06/20 11:12 11/06/20 11:48 11/06/20 16:51 Glucose (Fingerstick) 135 mg/dL 171 mg/dL 161 mg/dL 211 mg/dL Test 11/06/20 19:21 Glucose (Fingerstick) 261 mg/dL Current Medications Medications (Trade) Dose Ordered Sig/Jenise Route PRN Reason Start Time Stop Time Status Last Admin Dose Admin Acetaminophen (Tylenol) 650 mg PRN Q6HRS PRN PO MILD PAIN / TEMP > 100.3'F 10/25/20 19:00 Multi-Ingredient Ointment (Analgesic [place]) 1 cody PRN QID PRN TP MUSCLE PAIN 10/25/20 19:00 Al Hydroxide/Mg Hydroxide (Mylanta Plus Xs) 15 ml PRN AFTMEALHC PRN PO DYSPEPSIA 10/25/20 19:00 Magnesium Hydroxide (Milk Of Magnesia) 2,400 mg PRN QHS PRN PO CONSTIPATION 10/25/20 19:00 Insulin Human Lispro (HumaLOG) 0-7 UNITS TIDWMEALS SQ 10/26/20 08:00 10/26/20 16:01 DC 10/26/20 12:20 Dextrose (Dextrose 50%-Water Syringe) 12.5 gm PRN Q15MIN PRN IV SEE COMMENTS 10/25/20 22:15 10/26/20 16:01 DC Insulin Human Lispro (HumaLOG) 10 units BID94 SQ 10/26/20 09:00 10/26/20 16:01 DC 10/26/20 09:00 Insulin Human Lispro (HumaLOG) 18 units NOON SQ 10/26/20 12:00 10/26/20 16:01 DC 10/26/20 12:00 Acetaminophen (Tylenol) 1,000 mg DAILY PO 10/26/20 09:00 11/06/20 09:00 Buspirone HCl (Buspar) 10 mg BID PO 10/25/20 23:00 10/31/20 17:02 DC 10/31/20 12:33 Furosemide (Lasix) 20 mg DAILY PO 10/26/20 09:00 11/06/20 09:00 Lorazepam (Ativan) 2 mg PRN Q4HRS PRN PO ANXIETY / AGITATION 10/25/20 23:00 10/30/20 20:05 Risperidone (RisperDAL) 0.75 mg QHS PO 10/25/20 23:00 10/31/20 17:02 DC 10/30/20 20:05 Sertraline HCl (Zoloft) 100 mg DAILY PO 10/26/20 09:00 11/02/20 17:22 DC 11/02/20 09:05 Amantadine HCl (Symmetrel) 100 mg HS PO 10/25/20 23:00 11/06/20 20:44 Non-Formulary Medication (Capsaicin/ Menthol (Salonpas Gel-Patch Hot)) 1 patch DAILY TP 10/26/20 09:00 UNV Divalproex Sodium (Depakote) 1,250 mg HS PO 10/25/20 23:00 10/26/20 13:06 DC 10/25/20 23:18 Insulin Glargine (Lantus Syringe) 16 unit NOON SQ 10/26/20 12:00 10/26/20 16:01 DC 10/26/20 12:00 Amylase/Lipase/ Protease (Zenpep 10,000) 2 cap DAILY PO 10/26/20 09:00 11/06/20 09:01 Meloxicam (Mobic) 15 mg HS PO 10/26/20 21:00 10/29/20 15:47 DC 10/28/20 20:05 Non-Formulary Medication (Insulin Lispro (Humalog)) 10 unit BID94 SQ 10/26/20 09:00 UNV Non-Formulary Medication (Insulin Lispro (Humalog)) 18 unit NOON SQ 10/26/20 12:00 UNV Nicotine (Nicoderm Cq 14mg Patch) 1 patch DAILY TD 10/26/20 09:00 11/06/20 09:01 Divalproex Sodium (Depakote Er) 1,000 mg HS PO 10/26/20 21:00 11/06/20 20:44 Divalproex Sodium (Depakote Er) 250 mg HS PO 10/26/20 21:00 11/06/20 20:44 Glucose (Insta-Glucose) 15 gm PRN Q15MIN PRN PO LOW BLOOD SUGAR 10/26/20 15:45 11/06/20 07:38 Insulin Glargine (Lantus Syringe) 8 unit NOON SQ 10/26/20 16:00 UNV Insulin Human Lispro (HumaLOG) 0-5 UNITS TIDWMEALS SQ 10/27/20 08:00 10/27/20 19:44 DC 10/27/20 17:29 Dextrose (Dextrose 50%-Water Syringe) 12.5 gm PRN Q15MIN PRN IV SEE COMMENTS 10/26/20 16:15 Insulin Human Lispro (HumaLOG) 0-5 UNITS QIDACHS SQ 10/27/20 21:00 10/28/20 11:58 DC 10/27/20 20:47 Insulin Glargine (Lantus Syringe) 10 unit QHS SQ 10/28/20 21:00 10/29/20 15:43 DC 10/28/20 20:07 Insulin Human Lispro (HumaLOG) 0-9 UNITS TIDWMEALS SQ 10/28/20 12:00 11/06/20 18:09 Dextrose (Dextrose 50%-Water Syringe) 12.5 gm PRN Q15MIN PRN IV SEE COMMENTS 10/28/20 12:00 UNV Insulin Human Lispro (HumaLOG) 12 units ONCE SQ 10/28/20 12:00 11/04/20 07:18 DC 10/28/20 12:17 Insulin Glargine (Lantus Syringe) 15 unit QHS SQ 10/29/20 21:00 11/01/20 12:43 DC 10/31/20 21:05 Risperidone (RisperDAL) 1 mg QHS PO 10/31/20 21:00 11/01/20 10:59 DC 10/31/20 20:42 Bupropion HCl (Wellbutrin Xl) 150 mg DAILY PO 11/01/20 09:00 11/02/20 17:22 DC 11/02/20 09:05 Risperidone (RisperDAL) 1.5 mg QHS PO 11/01/20 21:00 11/05/20 17:15 DC 11/04/20 20:14 Insulin Glargine (Lantus Syringe) 20 unit QHS SQ 11/01/20 21:00 11/03/20 19:16 DC 11/02/20 21:20 Insulin Human Lispro (HumaLOG) 12 units 1X ONCE SQ 11/01/20 19:45 11/01/20 19:46 DC 11/01/20 19:45 Bupropion HCl (Wellbutrin Xl) 300 mg DAILY PO 11/03/20 09:00 11/06/20 09:00 Sertraline HCl (Zoloft) 100 mg HS PO 11/03/20 21:00 11/06/20 20:44 Insulin Glargine (Lantus Syringe) 25 unit QHS SQ 11/03/20 21:00 11/06/20 10:19 DC 11/05/20 21:36 Insulin Human Lispro (HumaLOG) 15 units 1X ONCE SQ 11/03/20 19:30 11/03/20 19:31 DC 11/03/20 19:24 Olanzapine (ZyPREXA ZYDIS) 2.5 mg PRN Q2HRS PRN PO PSYCHOSIS 11/04/20 17:45 Olanzapine (ZyPREXA ZYDIS) 10 mg 1X ONCE PO 11/05/20 07:45 11/05/20 08:02 DC 11/05/20 08:10 Insulin Human Lispro (HumaLOG) 16 units ONCE SQ 11/05/20 12:30 11/05/20 12:30 DC Insulin Human Lispro (HumaLOG) 7 units 1X ONCE SQ 11/05/20 12:45 11/05/20 12:46 DC 11/05/20 13:09 Risperidone (RisperDAL) 2 mg QHS PO 11/05/20 21:00 11/06/20 20:44 Insulin Glargine (Lantus Syringe) 20 unit QHS SQ 11/06/20 21:00 11/06/20 22:31 Current Medications Medications (Trade) Dose Ordered Sig/Jenise Route PRN Reason Start Time Stop Time Status Last Admin Dose Admin Insulin Glargine (Lantus Syringe) 20 unit QHS SQ 11/06/20 21:00 11/06/20 22:31 I have reviewed the current psychotropics carefully including drug interactions. Risk benefit ratio favors no change other than as noted in my dictated progress note. Diagnosis: Problems: (1) Schizoaffective disorder, bipolar type (2) Impulse control disorder, unspecified (3) Mild cognitive impairment (4) Anxiety disorder, unspecified (5) Bipolar disorder, current episode mixed, severe, with psychotic features JESSICA RAMESH MD Nov 07, 2020 06:58
[2020-11-07] MEDS: INSULIN LISPRO 300 UNITS/3 ML VIAL. SQ SCH ×3 (07:43→17:25)
[2020-11-07] MEDS: LIPASE/PROTEAS/AMYLAS 10/32/42 CAPSULE.DR. PO SCH (08:21)
[2020-11-07] MEDS: FUROSEMIDE 20 MG TABLET PO SCH (08:22)
[2020-11-07] MEDS: buPROPion XL 300 MG TAB.ER.24H. PO SCH (08:22)
[2020-11-07] MEDS: ACETAMINOPHEN 500 MG TABLET PO SCH (08:22)
[2020-11-07] MEDS: NICOTINE 14MG PATCH. TD SCH (08:25)
--- NOTE | 2020-11-07 14:03 | NUR ---
NSG NOTE; Deisy has been calm and compliant today, preferring to read a book in her room rather than come in to the dayroom where it is "too noisy."
[2020-11-07 16:00] VITALS: BP 161/96
[2020-11-07] MEDS: SERTRALINE 100 MG TABLET. PO SCH (20:41)
[2020-11-07] MEDS: risperiDONE 2 MG TABLET. PO SCH (20:41)
[2020-11-07] MEDS: DIVALPROEX ER 250 MG TAB.ER.24H. PO SCH (20:41)
[2020-11-07] MEDS: DIVALPROEX ER 500 MG TAB.ER.24H PO SCH (20:41)
[2020-11-07] MEDS: AMANTADINE HCL 100 MG PO SCH (20:41)
--- NOTE | 2020-11-07 22:12 | PDOC ---
Exam Note: Jaren Note: Please also refer to the separate dictated note~for this date of service dictated separately.~Patient seen individually. Discussed the patient with Nursing staff reviewed the chart.~Reviewed interim history and current functioning. Reviewed vital signs,~Labs/ Radiology~and current medications noted below. Continue current treatment with the changes noted in the dictated addendum note Assessment: Vital Signs/I&O: Vital Signs Date Time Temp Pulse Resp B/P (MAP) Pulse Ox O2 Delivery O2 Flow Rate FiO2 11/07/20 16:00 98.1 85 18 161/96 (117) 100 11/02/20 06:17 Room Air I & O 11/06/20 11/06/20 11/07/20 15:00 23:00 07:00 Intake Total 480 ml 420 ml Balance 480 ml 420 ml Labs: Laboratory Tests Test 11/07/20 07:35 11/07/20 11:44 11/07/20 16:25 11/07/20 19:14 Glucose (Fingerstick) 114 mg/dL (70-99) H 298 mg/dL (70-99) H 209 mg/dL (70-99) H 291 mg/dL (70-99) H Current Medications: Meds: Laboratory Tests Test 11/07/20 07:35 11/07/20 11:44 11/07/20 16:25 11/07/20 19:14 Glucose (Fingerstick) 114 mg/dL 298 mg/dL 209 mg/dL 291 mg/dL Current Medications Medications (Trade) Dose Ordered Sig/Jenise Route PRN Reason Start Time Stop Time Status Last Admin Dose Admin Acetaminophen (Tylenol) 650 mg PRN Q6HRS PRN PO MILD PAIN / TEMP > 100.3'F 10/25/20 19:00 Multi-Ingredient Ointment (Analgesic [place]) 1 cody PRN QID PRN TP MUSCLE PAIN 10/25/20 19:00 Al Hydroxide/Mg Hydroxide (Mylanta Plus Xs) 15 ml PRN AFTMEALHC PRN PO DYSPEPSIA 10/25/20 19:00 Magnesium Hydroxide (Milk Of Magnesia) 2,400 mg PRN QHS PRN PO CONSTIPATION 10/25/20 19:00 Insulin Human Lispro (HumaLOG) 0-7 UNITS TIDWMEALS SQ 10/26/20 08:00 10/26/20 16:01 DC 10/26/20 12:20 Dextrose (Dextrose 50%-Water Syringe) 12.5 gm PRN Q15MIN PRN IV SEE COMMENTS 10/25/20 22:15 10/26/20 16:01 DC Insulin Human Lispro (HumaLOG) 10 units BID94 SQ 10/26/20 09:00 10/26/20 16:01 DC 10/26/20 09:00 Insulin Human Lispro (HumaLOG) 18 units NOON SQ 10/26/20 12:00 10/26/20 16:01 DC 10/26/20 12:00 Acetaminophen (Tylenol) 1,000 mg DAILY PO 10/26/20 09:00 11/06/20 09:00 Buspirone HCl (Buspar) 10 mg BID PO 10/25/20 23:00 10/31/20 17:02 DC 10/31/20 12:33 Furosemide (Lasix) 20 mg DAILY PO 10/26/20 09:00 11/07/20 08:22 Lorazepam (Ativan) 2 mg PRN Q4HRS PRN PO ANXIETY / AGITATION 10/25/20 23:00 10/30/20 20:05 Risperidone (RisperDAL) 0.75 mg QHS PO 10/25/20 23:00 10/31/20 17:02 DC 10/30/20 20:05 Sertraline HCl (Zoloft) 100 mg DAILY PO 10/26/20 09:00 11/02/20 17:22 DC 11/02/20 09:05 Amantadine HCl (Symmetrel) 100 mg HS PO 10/25/20 23:00 11/07/20 20:41 Non-Formulary Medication (Capsaicin/ Menthol (Salonpas Gel-Patch Hot)) 1 patch DAILY TP 10/26/20 09:00 UNV Divalproex Sodium (Depakote) 1,250 mg HS PO 10/25/20 23:00 10/26/20 13:06 DC 10/25/20 23:18 Insulin Glargine (Lantus Syringe) 16 unit NOON SQ 10/26/20 12:00 10/26/20 16:01 DC 10/26/20 12:00 Amylase/Lipase/ Protease (Zenpep 10,000) 2 cap DAILY PO 10/26/20 09:00 11/07/20 08:21 Meloxicam (Mobic) 15 mg HS PO 10/26/20 21:00 10/29/20 15:47 DC 10/28/20 20:05 Non-Formulary Medication (Insulin Lispro (Humalog)) 10 unit BID94 SQ 10/26/20 09:00 UNV Non-Formulary Medication (Insulin Lispro (Humalog)) 18 unit NOON SQ 10/26/20 12:00 UNV Nicotine (Nicoderm Cq 14mg Patch) 1 patch DAILY TD 10/26/20 09:00 11/07/20 08:25 Divalproex Sodium (Depakote Er) 1,000 mg HS PO 10/26/20 21:00 11/07/20 20:41 Divalproex Sodium (Depakote Er) 250 mg HS PO 10/26/20 21:00 11/07/20 20:41 Glucose (Insta-Glucose) 15 gm PRN Q15MIN PRN PO LOW BLOOD SUGAR 10/26/20 15:45 11/06/20 07:38 Insulin Glargine (Lantus Syringe) 8 unit NOON SQ 10/26/20 16:00 UNV Insulin Human Lispro (HumaLOG) 0-5 UNITS TIDWMEALS SQ 10/27/20 08:00 10/27/20 19:44 DC 10/27/20 17:29 Dextrose (Dextrose 50%-Water Syringe) 12.5 gm PRN Q15MIN PRN IV SEE COMMENTS 10/26/20 16:15 Insulin Human Lispro (HumaLOG) 0-5 UNITS QIDACHS SQ 10/27/20 21:00 10/28/20 11:58 DC 10/27/20 20:47 Insulin Glargine (Lantus Syringe) 10 unit QHS SQ 10/28/20 21:00 10/29/20 15:43 DC 10/28/20 20:07 Insulin Human Lispro (HumaLOG) 0-9 UNITS TIDWMEALS SQ 10/28/20 12:00 11/07/20 17:25 Dextrose (Dextrose 50%-Water Syringe) 12.5 gm PRN Q15MIN PRN IV SEE COMMENTS 10/28/20 12:00 UNV Insulin Human Lispro (HumaLOG) 12 units ONCE SQ 10/28/20 12:00 11/04/20 07:18 DC 10/28/20 12:17 Insulin Glargine (Lantus Syringe) 15 unit QHS SQ 10/29/20 21:00 11/01/20 12:43 DC 10/31/20 21:05 Risperidone (RisperDAL) 1 mg QHS PO 10/31/20 21:00 11/01/20 10:59 DC 10/31/20 20:42 Bupropion HCl (Wellbutrin Xl) 150 mg DAILY PO 11/01/20 09:00 11/02/20 17:22 DC 11/02/20 09:05 Risperidone (RisperDAL) 1.5 mg QHS PO 11/01/20 21:00 11/05/20 17:15 DC 11/04/20 20:14 Insulin Glargine (Lantus Syringe) 20 unit QHS SQ 11/01/20 21:00 11/03/20 19:16 DC 11/02/20 21:20 Insulin Human Lispro (HumaLOG) 12 units 1X ONCE SQ 11/01/20 19:45 11/01/20 19:46 DC 11/01/20 19:45 Bupropion HCl (Wellbutrin Xl) 300 mg DAILY PO 11/03/20 09:00 11/07/20 08:22 Sertraline HCl (Zoloft) 100 mg HS PO 11/03/20 21:00 11/07/20 20:41 Insulin Glargine (Lantus Syringe) 25 unit QHS SQ 11/03/20 21:00 11/06/20 10:19 DC 11/05/20 21:36 Insulin Human Lispro (HumaLOG) 15 units 1X ONCE SQ 11/03/20 19:30 11/03/20 19:31 DC 11/03/20 19:24 Olanzapine (ZyPREXA ZYDIS) 2.5 mg PRN Q2HRS PRN PO PSYCHOSIS 11/04/20 17:45 Olanzapine (ZyPREXA ZYDIS) 10 mg 1X ONCE PO 11/05/20 07:45 11/05/20 08:02 DC 11/05/20 08:10 Insulin Human Lispro (HumaLOG) 16 units ONCE SQ 11/05/20 12:30 11/05/20 12:30 DC Insulin Human Lispro (HumaLOG) 7 units 1X ONCE SQ 11/05/20 12:45 11/05/20 12:46 DC 11/05/20 13:09 Risperidone (RisperDAL) 2 mg QHS PO 11/05/20 21:00 11/07/20 20:41 Insulin Glargine (Lantus Syringe) 20 unit QHS SQ 11/06/20 21:00 11/06/20 22:31 I have reviewed the current psychotropics carefully including drug interactions. Risk benefit ratio favors no change other than as noted in my dictated progress note. Diagnosis: Problems: (1) Schizoaffective disorder, bipolar type (2) Impulse control disorder, unspecified (3) Mild cognitive impairment (4) Anxiety disorder, unspecified (5) Bipolar disorder, current episode mixed, severe, with psychotic features JESSICA RAMESH MD Nov 07, 2020 22:12
[2020-11-07] MEDS: INSULIN GLARGINE SYRINGE. SQ SCH (22:33)
--- NOTE | 2020-11-08 01:37 | NUR ---
Nursing Note The patient was located in her room for her assessment and medication pass. The patient was compliant with her medication and took them whole. The patient was alert to name and year. The patient was pleasant during interactions with this nurse and peers. The patient requested information on her medications. The patient is currently sleeping in her room.
[2020-11-08 06:22] VITALS: BP 148/84
[2020-11-08] MEDS: INSULIN LISPRO 300 UNITS/3 ML VIAL. SQ SCH ×3 (08:00→17:00)
--- NOTE | 2020-11-08 08:09 | PDOC ---
Exam Note: Jaren Note: This note is a late entry for 11/07/2020 covers elements not covered in my initial note. Subjective: The patient was seen individually in the evening of 11/07/2020 with Maryanne TOBIN, discussed and reviewed the chart. She slept 6-1/4 hours previous night. Overall the patient is doing better with improved mood lability. No crying spells. Review of Systems: Ambulation impaired in wheelchair. No CV, , pulmonary, eye, ENT system symptoms on review. Mental Status Exam: The patient is reasonably oriented. I met with her in her room and later again in the dayroom where she had more questions about her discharge plans and I addressed with her. She was very verbal, interactive. Speech coherent. Abstraction fair. Computation impaired. Language function intact. Attention span fair. Mood and affect improved. No suicidal or homicidal ideation. Laboratory Data: Reviewed. Impression: Schizoaffective disorder bipolar type with psychotic features. Anxiety disorder unspecified. Impulse control disorder unspecified. Mild cognitive impairment. Plan: No change from initial note. Assessment: Vital Signs/I&O: Vital Signs Date Time Temp Pulse Resp B/P (MAP) Pulse Ox O2 Delivery O2 Flow Rate FiO2 11/08/20 06:22 97.8 73 18 148/84 (105) 99 Room Air I & O 11/07/20 11/07/20 11/08/20 15:00 23:00 07:00 Intake Total 1200 ml 960 ml Balance 1200 ml 960 ml Labs: Laboratory Tests Test 11/07/20 11:44 11/07/20 16:25 11/07/20 19:14 11/08/20 07:30 Glucose (Fingerstick) 298 mg/dL (70-99) H 209 mg/dL (70-99) H 291 mg/dL (70-99) H 69 mg/dL (70-99) L Current Medications: Meds: Laboratory Tests Test 11/07/20 11:44 11/07/20 16:25 11/07/20 19:14 11/08/20 07:30 Glucose (Fingerstick) 298 mg/dL 209 mg/dL 291 mg/dL 69 mg/dL Current Medications Medications (Trade) Dose Ordered Sig/Jenise Route PRN Reason Start Time Stop Time Status Last Admin Dose Admin Acetaminophen (Tylenol) 650 mg PRN Q6HRS PRN PO MILD PAIN / TEMP > 100.3'F 10/25/20 19:00 Multi-Ingredient Ointment (Analgesic [place]) 1 cody PRN QID PRN TP MUSCLE PAIN 10/25/20 19:00 Al Hydroxide/Mg Hydroxide (Mylanta Plus Xs) 15 ml PRN AFTMEALHC PRN PO DYSPEPSIA 10/25/20 19:00 Magnesium Hydroxide (Milk Of Magnesia) 2,400 mg PRN QHS PRN PO CONSTIPATION 10/25/20 19:00 Insulin Human Lispro (HumaLOG) 0-7 UNITS TIDWMEALS SQ 10/26/20 08:00 10/26/20 16:01 DC 10/26/20 12:20 Dextrose (Dextrose 50%-Water Syringe) 12.5 gm PRN Q15MIN PRN IV SEE COMMENTS 10/25/20 22:15 10/26/20 16:01 DC Insulin Human Lispro (HumaLOG) 10 units BID94 SQ 10/26/20 09:00 10/26/20 16:01 DC 10/26/20 09:00 Insulin Human Lispro (HumaLOG) 18 units NOON SQ 10/26/20 12:00 10/26/20 16:01 DC 10/26/20 12:00 Acetaminophen (Tylenol) 1,000 mg DAILY PO 10/26/20 09:00 11/06/20 09:00 Buspirone HCl (Buspar) 10 mg BID PO 10/25/20 23:00 10/31/20 17:02 DC 10/31/20 12:33 Furosemide (Lasix) 20 mg DAILY PO 10/26/20 09:00 11/07/20 08:22 Lorazepam (Ativan) 2 mg PRN Q4HRS PRN PO ANXIETY / AGITATION 10/25/20 23:00 10/30/20 20:05 Risperidone (RisperDAL) 0.75 mg QHS PO 10/25/20 23:00 10/31/20 17:02 DC 10/30/20 20:05 Sertraline HCl (Zoloft) 100 mg DAILY PO 10/26/20 09:00 11/02/20 17:22 DC 11/02/20 09:05 Amantadine HCl (Symmetrel) 100 mg HS PO 10/25/20 23:00 11/07/20 20:41 Non-Formulary Medication (Capsaicin/ Menthol (Salonpas Gel-Patch Hot)) 1 patch DAILY TP 10/26/20 09:00 UNV Divalproex Sodium (Depakote) 1,250 mg HS PO 10/25/20 23:00 10/26/20 13:06 DC 10/25/20 23:18 Insulin Glargine (Lantus Syringe) 16 unit NOON SQ 10/26/20 12:00 10/26/20 16:01 DC 10/26/20 12:00 Amylase/Lipase/ Protease (Zenpep 10,000) 2 cap DAILY PO 10/26/20 09:00 11/07/20 08:21 Meloxicam (Mobic) 15 mg HS PO 10/26/20 21:00 10/29/20 15:47 DC 10/28/20 20:05 Non-Formulary Medication (Insulin Lispro (Humalog)) 10 unit BID94 SQ 10/26/20 09:00 UNV Non-Formulary Medication (Insulin Lispro (Humalog)) 18 unit NOON SQ 10/26/20 12:00 UNV Nicotine (Nicoderm Cq 14mg Patch) 1 patch DAILY TD 10/26/20 09:00 11/07/20 08:25 Divalproex Sodium (Depakote Er) 1,000 mg HS PO 10/26/20 21:00 11/07/20 20:41 Divalproex Sodium (Depakote Er) 250 mg HS PO 10/26/20 21:00 11/07/20 20:41 Glucose (Insta-Glucose) 15 gm PRN Q15MIN PRN PO LOW BLOOD SUGAR 10/26/20 15:45 11/06/20 07:38 Insulin Glargine (Lantus Syringe) 8 unit NOON SQ 10/26/20 16:00 UNV Insulin Human Lispro (HumaLOG) 0-5 UNITS TIDWMEALS SQ 10/27/20 08:00 10/27/20 19:44 DC 10/27/20 17:29 Dextrose (Dextrose 50%-Water Syringe) 12.5 gm PRN Q15MIN PRN IV SEE COMMENTS 10/26/20 16:15 Insulin Human Lispro (HumaLOG) 0-5 UNITS QIDACHS SQ 10/27/20 21:00 10/28/20 11:58 DC 10/27/20 20:47 Insulin Glargine (Lantus Syringe) 10 unit QHS SQ 10/28/20 21:00 10/29/20 15:43 DC 10/28/20 20:07 Insulin Human Lispro (HumaLOG) 0-9 UNITS TIDWMEALS SQ 10/28/20 12:00 11/07/20 17:25 Dextrose (Dextrose 50%-Water Syringe) 12.5 gm PRN Q15MIN PRN IV SEE COMMENTS 10/28/20 12:00 UNV Insulin Human Lispro (HumaLOG) 12 units ONCE SQ 10/28/20 12:00 11/04/20 07:18 DC 10/28/20 12:17 Insulin Glargine (Lantus Syringe) 15 unit QHS SQ 10/29/20 21:00 11/01/20 12:43 DC 10/31/20 21:05 Risperidone (RisperDAL) 1 mg QHS PO 10/31/20 21:00 11/01/20 10:59 DC 10/31/20 20:42 Bupropion HCl (Wellbutrin Xl) 150 mg DAILY PO 11/01/20 09:00 11/02/20 17:22 DC 11/02/20 09:05 Risperidone (RisperDAL) 1.5 mg QHS PO 11/01/20 21:00 11/05/20 17:15 DC 11/04/20 20:14 Insulin Glargine (Lantus Syringe) 20 unit QHS SQ 11/01/20 21:00 11/03/20 19:16 DC 11/02/20 21:20 Insulin Human Lispro (HumaLOG) 12 units 1X ONCE SQ 11/01/20 19:45 11/01/20 19:46 DC 11/01/20 19:45 Bupropion HCl (Wellbutrin Xl) 300 mg DAILY PO 11/03/20 09:00 11/07/20 08:22 Sertraline HCl (Zoloft) 100 mg HS PO 11/03/20 21:00 11/07/20 20:41 Insulin Glargine (Lantus Syringe) 25 unit QHS SQ 11/03/20 21:00 11/06/20 10:19 DC 11/05/20 21:36 Insulin Human Lispro (HumaLOG) 15 units 1X ONCE SQ 11/03/20 19:30 11/03/20 19:31 DC 11/03/20 19:24 Olanzapine (ZyPREXA ZYDIS) 2.5 mg PRN Q2HRS PRN PO PSYCHOSIS 11/04/20 17:45 Olanzapine (ZyPREXA ZYDIS) 10 mg 1X ONCE PO 11/05/20 07:45 11/05/20 08:02 DC 11/05/20 08:10 Insulin Human Lispro (HumaLOG) 16 units ONCE SQ 11/05/20 12:30 11/05/20 12:30 DC Insulin Human Lispro (HumaLOG) 7 units 1X ONCE SQ 11/05/20 12:45 11/05/20 12:46 DC 11/05/20 13:09 Risperidone (RisperDAL) 2 mg QHS PO 11/05/20 21:00 11/07/20 20:41 Insulin Glargine (Lantus Syringe) 20 unit QHS SQ 11/06/20 21:00 11/07/20 22:33 I have reviewed the current psychotropics carefully including drug interactions. Risk benefit ratio favors no change other than as noted in my dictated progress note. Diagnosis: Problems: (1) Schizoaffective disorder, bipolar type (2) Impulse control disorder, unspecified (3) Mild cognitive impairment (4) Anxiety disorder, unspecified (5) Bipolar disorder, current episode mixed, severe, with psychotic features JESSICA RAMESH MD Nov 08, 2020 08:09
[2020-11-08] MEDS: NICOTINE 14MG PATCH. TD SCH (09:35)
[2020-11-08] MEDS: ACETAMINOPHEN 500 MG TABLET PO SCH (09:35)
[2020-11-08] MEDS: LIPASE/PROTEAS/AMYLAS 10/32/42 CAPSULE.DR. PO SCH (09:36)
[2020-11-08] MEDS: FUROSEMIDE 20 MG TABLET PO SCH (09:36)
[2020-11-08] MEDS: buPROPion XL 300 MG TAB.ER.24H. PO SCH (09:36)
[2020-11-08] MEDS ORDERED: INSULIN LISPRO 300 UNITS/3 ML VIAL. SQ SCH (12:00)
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
[2020-11-08] MEDS ORDERED: INSULIN LISPRO 300 UNITS/3 ML VIAL. SQ ONE (13:45)
--- NOTE | 2020-11-08 14:13 | NUR ---
"Weekly Note: Pt is eating an average of 80% of her meals and getting approximately 7 hours of sleep per night. Pt is med compliant; she will ask about her medications just to be educated about them. Her labile moods seem to have improved and she has not had any crying spells. Pt seems to be more visible in the dayroom and engaging with activities. She has participated with [employer] and [email or web address]. She does appear to still be somewhat disorganized as she will sometimes repeat questions that she just asked. BRI[place] [facility] [place] Thursday11/13/20. Belen requested p/u time at 0900 as they need to get pt back to facility by 1300. BRIA agreeable. BRIA faxed current med list to Belen and received completed/successful transmittal. BRIA then contacted pt dtr/DPOA, Chayito, to discuss d/c plan. Chayito appreciative of call."
--- NOTE | 2020-11-08 15:24 | NUR ---
Nursing Note: Pt has been calm, cooperative, and medication compliant. She slept in today and skipped breakfast. Her blood sugar was too low this morning to administer any insulin. At lunch her blood sugar was 425, so Dr. Glez was contacted for order per protocol. He ordered 12 units of Humalog to be administered at lunch time. Pt. has been socializing and hanging out in the day room. She will be returning to [facility] early next week.
[2020-11-08 15:48] VITALS: BP 133/84
[2020-11-08] MEDS: risperiDONE 2 MG TABLET. PO SCH (20:34)
[2020-11-08] MEDS: AMANTADINE HCL 100 MG PO SCH (20:34)
[2020-11-08] MEDS: DIVALPROEX ER 500 MG TAB.ER.24H PO SCH (20:34)
[2020-11-08] MEDS: DIVALPROEX ER 250 MG TAB.ER.24H. PO SCH (20:34)
[2020-11-08] MEDS: SERTRALINE 100 MG TABLET. PO SCH (20:35)
[2020-11-08] MEDS: INSULIN GLARGINE SYRINGE. SQ SCH (20:38)
--- NOTE | 2020-11-08 22:08 | PDOC ---
Exam Note: Jaren Note: Please also refer to the separate dictated note~for this date of service dictated separately.~Patient seen individually. Discussed the patient with Nursing staff reviewed the chart.~Reviewed interim history and current functioning. Reviewed vital signs,~Labs/ Radiology~and current medications noted below. Continue current treatment with the changes noted in the dictated addendum note Assessment: Vital Signs/I&O: Vital Signs Date Time Temp Pulse Resp B/P (MAP) Pulse Ox O2 Delivery O2 Flow Rate FiO2 11/08/20 15:48 98.0 88 16 133/84 (100) 99 11/08/20 06:22 Room Air I & O 11/07/20 11/07/20 11/08/20 15:00 23:00 07:00 Intake Total 1200 ml 960 ml Balance 1200 ml 960 ml Labs: Laboratory Tests Test 11/08/20 07:30 11/08/20 11:34 11/08/20 16:42 11/08/20 19:29 Glucose (Fingerstick) 69 mg/dL (70-99) L 425 mg/dL (70-99) H 77 mg/dL (70-99) 156 mg/dL (70-99) H Current Medications: Meds: Laboratory Tests Test 11/08/20 07:30 11/08/20 11:34 11/08/20 16:42 11/08/20 19:29 Glucose (Fingerstick) 69 mg/dL 425 mg/dL 77 mg/dL 156 mg/dL Current Medications Medications (Trade) Dose Ordered Sig/Jenise Route PRN Reason Start Time Stop Time Status Last Admin Dose Admin Acetaminophen (Tylenol) 650 mg PRN Q6HRS PRN PO MILD PAIN / TEMP > 100.3'F 10/25/20 19:00 Multi-Ingredient Ointment (Analgesic [place]) 1 cody PRN QID PRN TP MUSCLE PAIN 10/25/20 19:00 Al Hydroxide/Mg Hydroxide (Mylanta Plus Xs) 15 ml PRN AFTMEALHC PRN PO DYSPEPSIA 10/25/20 19:00 Magnesium Hydroxide (Milk Of Magnesia) 2,400 mg PRN QHS PRN PO CONSTIPATION 10/25/20 19:00 Insulin Human Lispro (HumaLOG) 0-7 UNITS TIDWMEALS SQ 10/26/20 08:00 10/26/20 16:01 DC 10/26/20 12:20 Dextrose (Dextrose 50%-Water Syringe) 12.5 gm PRN Q15MIN PRN IV SEE COMMENTS 10/25/20 22:15 10/26/20 16:01 DC Insulin Human Lispro (HumaLOG) 10 units BID94 SQ 10/26/20 09:00 10/26/20 16:01 DC 10/26/20 09:00 Insulin Human Lispro (HumaLOG) 18 units NOON SQ 10/26/20 12:00 10/26/20 16:01 DC 10/26/20 12:00 Acetaminophen (Tylenol) 1,000 mg DAILY PO 10/26/20 09:00 11/08/20 09:35 Buspirone HCl (Buspar) 10 mg BID PO 10/25/20 23:00 10/31/20 17:02 DC 10/31/20 12:33 Furosemide (Lasix) 20 mg DAILY PO 10/26/20 09:00 11/08/20 09:36 Lorazepam (Ativan) 2 mg PRN Q4HRS PRN PO ANXIETY / AGITATION 10/25/20 23:00 10/30/20 20:05 Risperidone (RisperDAL) 0.75 mg QHS PO 10/25/20 23:00 10/31/20 17:02 DC 10/30/20 20:05 Sertraline HCl (Zoloft) 100 mg DAILY PO 10/26/20 09:00 11/02/20 17:22 DC 11/02/20 09:05 Amantadine HCl (Symmetrel) 100 mg HS PO 10/25/20 23:00 11/08/20 20:34 Non-Formulary Medication (Capsaicin/ Menthol (Salonpas Gel-Patch Hot)) 1 patch DAILY TP 10/26/20 09:00 UNV Divalproex Sodium (Depakote) 1,250 mg HS PO 10/25/20 23:00 10/26/20 13:06 DC 10/25/20 23:18 Insulin Glargine (Lantus Syringe) 16 unit NOON SQ 10/26/20 12:00 10/26/20 16:01 DC 10/26/20 12:00 Amylase/Lipase/ Protease (Zenpep 10,000) 2 cap DAILY PO 10/26/20 09:00 11/08/20 09:36 Meloxicam (Mobic) 15 mg HS PO 10/26/20 21:00 10/29/20 15:47 DC 10/28/20 20:05 Non-Formulary Medication (Insulin Lispro (Humalog)) 10 unit BID94 SQ 10/26/20 09:00 UNV Non-Formulary Medication (Insulin Lispro (Humalog)) 18 unit NOON SQ 10/26/20 12:00 UNV Nicotine (Nicoderm Cq 14mg Patch) 1 patch DAILY TD 10/26/20 09:00 11/08/20 09:35 Divalproex Sodium (Depakote Er) 1,000 mg HS PO 10/26/20 21:00 11/08/20 20:34 Divalproex Sodium (Depakote Er) 250 mg HS PO 10/26/20 21:00 11/08/20 20:34 Glucose (Insta-Glucose) 15 gm PRN Q15MIN PRN PO LOW BLOOD SUGAR 10/26/20 15:45 11/06/20 07:38 Insulin Glargine (Lantus Syringe) 8 unit NOON SQ 10/26/20 16:00 UNV Insulin Human Lispro (HumaLOG) 0-5 UNITS TIDWMEALS SQ 10/27/20 08:00 10/27/20 19:44 DC 10/27/20 17:29 Dextrose (Dextrose 50%-Water Syringe) 12.5 gm PRN Q15MIN PRN IV SEE COMMENTS 10/26/20 16:15 Insulin Human Lispro (HumaLOG) 0-5 UNITS QIDACHS SQ 10/27/20 21:00 10/28/20 11:58 DC 10/27/20 20:47 Insulin Glargine (Lantus Syringe) 10 unit QHS SQ 10/28/20 21:00 10/29/20 15:43 DC 10/28/20 20:07 Insulin Human Lispro (HumaLOG) 0-9 UNITS TIDWMEALS SQ 10/28/20 12:00 11/08/20 13:04 Dextrose (Dextrose 50%-Water Syringe) 12.5 gm PRN Q15MIN PRN IV SEE COMMENTS 10/28/20 12:00 UNV Insulin Human Lispro (HumaLOG) 12 units ONCE SQ 10/28/20 12:00 11/04/20 07:18 DC 10/28/20 12:17 Insulin Glargine (Lantus Syringe) 15 unit QHS SQ 10/29/20 21:00 11/01/20 12:43 DC 10/31/20 21:05 Risperidone (RisperDAL) 1 mg QHS PO 10/31/20 21:00 11/01/20 10:59 DC 10/31/20 20:42 Bupropion HCl (Wellbutrin Xl) 150 mg DAILY PO 11/01/20 09:00 11/02/20 17:22 DC 11/02/20 09:05 Risperidone (RisperDAL) 1.5 mg QHS PO 11/01/20 21:00 11/05/20 17:15 DC 11/04/20 20:14 Insulin Glargine (Lantus Syringe) 20 unit QHS SQ 11/01/20 21:00 11/03/20 19:16 DC 11/02/20 21:20 Insulin Human Lispro (HumaLOG) 12 units 1X ONCE SQ 11/01/20 19:45 11/01/20 19:46 DC 11/01/20 19:45 Bupropion HCl (Wellbutrin Xl) 300 mg DAILY PO 11/03/20 09:00 11/08/20 09:36 Sertraline HCl (Zoloft) 100 mg HS PO 11/03/20 21:00 11/08/20 20:35 Insulin Glargine (Lantus Syringe) 25 unit QHS SQ 11/03/20 21:00 11/06/20 10:19 DC 11/05/20 21:36 Insulin Human Lispro (HumaLOG) 15 units 1X ONCE SQ 11/03/20 19:30 11/03/20 19:31 DC 11/03/20 19:24 Olanzapine (ZyPREXA ZYDIS) 2.5 mg PRN Q2HRS PRN PO PSYCHOSIS 11/04/20 17:45 Olanzapine (ZyPREXA ZYDIS) 10 mg 1X ONCE PO 11/05/20 07:45 11/05/20 08:02 DC 11/05/20 08:10 Insulin Human Lispro (HumaLOG) 16 units ONCE SQ 11/05/20 12:30 11/05/20 12:30 DC Insulin Human Lispro (HumaLOG) 7 units 1X ONCE SQ 11/05/20 12:45 11/05/20 12:46 DC 11/05/20 13:09 Risperidone (RisperDAL) 2 mg QHS PO 11/05/20 21:00 11/08/20 20:34 Insulin Glargine (Lantus Syringe) 20 unit QHS SQ 11/06/20 21:00 11/08/20 20:38 Insulin Human Lispro (HumaLOG) 3 units ONCE SQ 11/08/20 12:00 11/08/20 13:43 DC Insulin Human Lispro (HumaLOG) 3 units 1X ONCE SQ 11/08/20 13:45 11/08/20 13:46 DC 11/08/20 13:45 Current Medications Medications (Trade) Dose Ordered Sig/Jenise Route PRN Reason Start Time Stop Time Status Last Admin Dose Admin Insulin Human Lispro (HumaLOG) 3 units 1X ONCE SQ 11/08/20 13:45 11/08/20 13:46 DC 11/08/20 13:45 I have reviewed the current psychotropics carefully including drug interactions. Risk benefit ratio favors no change other than as noted in my dictated progress note. Diagnosis: Problems: (1) Schizoaffective disorder, bipolar type (2) Impulse control disorder, unspecified (3) Mild cognitive impairment (4) Anxiety disorder, unspecified (5) Bipolar disorder, current episode mixed, severe, with psychotic features JESSICA RAMESH MD Nov 08, 2020 22:08
--- NOTE | 2020-11-08 22:47 | NUR ---
Patient is located in the day room on assumption of care, watching television. She is flat, disorganized, confused. She continues to ask questions about what medications are in her cup and what they are for, but is compliant with taking them. She enjoyed a phone call with both her daughter and her sister this evening. No agitation. Patient denies any pain or discomfort. She appears to be sleeping comfortably at present time. Will continue to monitor.
[2020-11-09 06:18] VITALS: BP 139/75
[2020-11-09] MEDS: INSULIN LISPRO 300 UNITS/3 ML VIAL. SQ SCH ×3 (08:00→17:36)
[2020-11-09] MEDS: FUROSEMIDE 20 MG TABLET PO SCH (09:14)
[2020-11-09] MEDS: LIPASE/PROTEAS/AMYLAS 10/32/42 CAPSULE.DR. PO SCH (09:14)
[2020-11-09] MEDS: buPROPion XL 300 MG TAB.ER.24H. PO SCH (09:14)
[2020-11-09] MEDS: ACETAMINOPHEN 500 MG TABLET PO SCH (09:15)
[2020-11-09] MEDS: NICOTINE 14MG PATCH. TD SCH (09:18)
--- NOTE | 2020-11-09 12:31 | NUR ---
[facility] Social Work Discharge Planning Form Patient Name RAMIN BLACKBURN Admit Date: 10/25/20 DISCHARGE PLAN Discharge Destination: [facility] Care Assessment: No Level II Assessment: No Transportation: Facility will p/u at 0900. Special Instructions/Notes: Please fax signed med list and visit summary. DISCHARGE TO FACILITY Facility: [facility] Address: [address] [place] [address] Contact Name: BRIA Glover PCP: Dr. Chin Psychiatrist: Dr. Laurent
[2020-11-09 15:56] VITALS: BP 159/97
[2020-11-09] MEDS: risperiDONE 2 MG TABLET. PO SCH (21:09)
[2020-11-09] MEDS: AMANTADINE HCL 100 MG PO SCH (21:10)
[2020-11-09] MEDS: DIVALPROEX ER 500 MG TAB.ER.24H PO SCH (21:10)
[2020-11-09] MEDS: SERTRALINE 100 MG TABLET. PO SCH (21:10)
[2020-11-09] MEDS: DIVALPROEX ER 250 MG TAB.ER.24H. PO SCH (21:11)
[2020-11-09] MEDS: INSULIN GLARGINE SYRINGE. SQ SCH (21:13)
--- NOTE | 2020-11-09 21:58 | PDOC ---
Exam Note: Jaren Note: Please also refer to the separate dictated note~for this date of service dictated separately.~Patient seen individually. Discussed the patient with Nursing staff reviewed the chart.~Reviewed interim history and current functioning. Reviewed vital signs,~Labs/ Radiology~and current medications noted below. Continue current treatment with the changes noted in the dictated addendum note Assessment: Vital Signs/I&O: Vital Signs Date Time Temp Pulse Resp B/P (MAP) Pulse Ox O2 Delivery O2 Flow Rate FiO2 11/09/20 15:56 98.7 84 18 159/97 (117) 98 11/08/20 06:22 Room Air I & O 11/08/20 11/08/20 11/09/20 15:00 23:00 07:00 Intake Total 600 ml 600 ml Balance 600 ml 600 ml Labs: Laboratory Tests Test 11/09/20 07:41 11/09/20 11:59 11/09/20 17:06 11/09/20 19:19 Glucose (Fingerstick) 78 mg/dL (70-99) 335 mg/dL (70-99) H 337 mg/dL (70-99) H 178 mg/dL (70-99) H Current Medications: Meds: Laboratory Tests Test 11/09/20 07:41 11/09/20 11:59 11/09/20 17:06 11/09/20 19:19 Glucose (Fingerstick) 78 mg/dL 335 mg/dL 337 mg/dL 178 mg/dL Current Medications Medications (Trade) Dose Ordered Sig/Jenise Route PRN Reason Start Time Stop Time Status Last Admin Dose Admin Acetaminophen (Tylenol) 650 mg PRN Q6HRS PRN PO MILD PAIN / TEMP > 100.3'F 10/25/20 19:00 Multi-Ingredient Ointment (Analgesic [place]) 1 cody PRN QID PRN TP MUSCLE PAIN 10/25/20 19:00 Al Hydroxide/Mg Hydroxide (Mylanta Plus Xs) 15 ml PRN AFTMEALHC PRN PO DYSPEPSIA 10/25/20 19:00 Magnesium Hydroxide (Milk Of Magnesia) 2,400 mg PRN QHS PRN PO CONSTIPATION 10/25/20 19:00 Insulin Human Lispro (HumaLOG) 0-7 UNITS TIDWMEALS SQ 10/26/20 08:00 10/26/20 16:01 DC 10/26/20 12:20 Dextrose (Dextrose 50%-Water Syringe) 12.5 gm PRN Q15MIN PRN IV SEE COMMENTS 10/25/20 22:15 10/26/20 16:01 DC Insulin Human Lispro (HumaLOG) 10 units BID94 SQ 10/26/20 09:00 10/26/20 16:01 DC 10/26/20 09:00 Insulin Human Lispro (HumaLOG) 18 units NOON SQ 10/26/20 12:00 10/26/20 16:01 DC 10/26/20 12:00 Acetaminophen (Tylenol) 1,000 mg DAILY PO 10/26/20 09:00 11/09/20 09:15 Buspirone HCl (Buspar) 10 mg BID PO 10/25/20 23:00 10/31/20 17:02 DC 10/31/20 12:33 Furosemide (Lasix) 20 mg DAILY PO 10/26/20 09:00 11/09/20 09:14 Lorazepam (Ativan) 2 mg PRN Q4HRS PRN PO ANXIETY / AGITATION 10/25/20 23:00 10/30/20 20:05 Risperidone (RisperDAL) 0.75 mg QHS PO 10/25/20 23:00 10/31/20 17:02 DC 10/30/20 20:05 Sertraline HCl (Zoloft) 100 mg DAILY PO 10/26/20 09:00 11/02/20 17:22 DC 11/02/20 09:05 Amantadine HCl (Symmetrel) 100 mg HS PO 10/25/20 23:00 11/09/20 21:10 Non-Formulary Medication (Capsaicin/ Menthol (Salonpas Gel-Patch Hot)) 1 patch DAILY TP 10/26/20 09:00 UNV Divalproex Sodium (Depakote) 1,250 mg HS PO 10/25/20 23:00 10/26/20 13:06 DC 10/25/20 23:18 Insulin Glargine (Lantus Syringe) 16 unit NOON SQ 10/26/20 12:00 10/26/20 16:01 DC 10/26/20 12:00 Amylase/Lipase/ Protease (Zenpep 10,000) 2 cap DAILY PO 10/26/20 09:00 11/09/20 09:14 Meloxicam (Mobic) 15 mg HS PO 10/26/20 21:00 10/29/20 15:47 DC 10/28/20 20:05 Non-Formulary Medication (Insulin Lispro (Humalog)) 10 unit BID94 SQ 10/26/20 09:00 UNV Non-Formulary Medication (Insulin Lispro (Humalog)) 18 unit NOON SQ 10/26/20 12:00 UNV Nicotine (Nicoderm Cq 14mg Patch) 1 patch DAILY TD 10/26/20 09:00 11/09/20 09:18 Divalproex Sodium (Depakote Er) 1,000 mg HS PO 10/26/20 21:00 11/09/20 21:10 Divalproex Sodium (Depakote Er) 250 mg HS PO 10/26/20 21:00 11/09/20 21:11 Glucose (Insta-Glucose) 15 gm PRN Q15MIN PRN PO LOW BLOOD SUGAR 10/26/20 15:45 11/06/20 07:38 Insulin Glargine (Lantus Syringe) 8 unit NOON SQ 10/26/20 16:00 UNV Insulin Human Lispro (HumaLOG) 0-5 UNITS TIDWMEALS SQ 10/27/20 08:00 10/27/20 19:44 DC 10/27/20 17:29 Dextrose (Dextrose 50%-Water Syringe) 12.5 gm PRN Q15MIN PRN IV SEE COMMENTS 10/26/20 16:15 Insulin Human Lispro (HumaLOG) 0-5 UNITS QIDACHS SQ 10/27/20 21:00 10/28/20 11:58 DC 10/27/20 20:47 Insulin Glargine (Lantus Syringe) 10 unit QHS SQ 10/28/20 21:00 10/29/20 15:43 DC 10/28/20 20:07 Insulin Human Lispro (HumaLOG) 0-9 UNITS TIDWMEALS SQ 10/28/20 12:00 11/09/20 17:36 Dextrose (Dextrose 50%-Water Syringe) 12.5 gm PRN Q15MIN PRN IV SEE COMMENTS 10/28/20 12:00 UNV Insulin Human Lispro (HumaLOG) 12 units ONCE SQ 10/28/20 12:00 11/04/20 07:18 DC 10/28/20 12:17 Insulin Glargine (Lantus Syringe) 15 unit QHS SQ 10/29/20 21:00 11/01/20 12:43 DC 10/31/20 21:05 Risperidone (RisperDAL) 1 mg QHS PO 10/31/20 21:00 11/01/20 10:59 DC 10/31/20 20:42 Bupropion HCl (Wellbutrin Xl) 150 mg DAILY PO 11/01/20 09:00 11/02/20 17:22 DC 11/02/20 09:05 Risperidone (RisperDAL) 1.5 mg QHS PO 11/01/20 21:00 11/05/20 17:15 DC 11/04/20 20:14 Insulin Glargine (Lantus Syringe) 20 unit QHS SQ 11/01/20 21:00 11/03/20 19:16 DC 11/02/20 21:20 Insulin Human Lispro (HumaLOG) 12 units 1X ONCE SQ 11/01/20 19:45 11/01/20 19:46 DC 11/01/20 19:45 Bupropion HCl (Wellbutrin Xl) 300 mg DAILY PO 11/03/20 09:00 11/09/20 09:14 Sertraline HCl (Zoloft) 100 mg HS PO 11/03/20 21:00 11/09/20 21:10 Insulin Glargine (Lantus Syringe) 25 unit QHS SQ 11/03/20 21:00 11/06/20 10:19 DC 11/05/20 21:36 Insulin Human Lispro (HumaLOG) 15 units 1X ONCE SQ 11/03/20 19:30 11/03/20 19:31 DC 11/03/20 19:24 Olanzapine (ZyPREXA ZYDIS) 2.5 mg PRN Q2HRS PRN PO PSYCHOSIS 11/04/20 17:45 Olanzapine (ZyPREXA ZYDIS) 10 mg 1X ONCE PO 11/05/20 07:45 11/05/20 08:02 DC 11/05/20 08:10 Insulin Human Lispro (HumaLOG) 16 units ONCE SQ 11/05/20 12:30 11/05/20 12:30 DC Insulin Human Lispro (HumaLOG) 7 units 1X ONCE SQ 11/05/20 12:45 11/05/20 12:46 DC 11/05/20 13:09 Risperidone (RisperDAL) 2 mg QHS PO 11/05/20 21:00 11/09/20 21:09 Insulin Glargine (Lantus Syringe) 20 unit QHS SQ 11/06/20 21:00 11/09/20 21:13 Insulin Human Lispro (HumaLOG) 3 units ONCE SQ 11/08/20 12:00 11/08/20 13:43 DC Insulin Human Lispro (HumaLOG) 3 units 1X ONCE SQ 11/08/20 13:45 11/08/20 13:46 DC 11/08/20 13:45 I have reviewed the current psychotropics carefully including drug interactions. Risk benefit ratio favors no change other than as noted in my dictated progress note. Diagnosis: Problems: (1) Schizoaffective disorder, bipolar type (2) Impulse control disorder, unspecified (3) Mild cognitive impairment (4) Anxiety disorder, unspecified (5) Bipolar disorder, current episode mixed, severe, with psychotic features JESSICA RAMESH MD Nov 09, 2020 21:58
--- NOTE | 2020-11-09 23:59 | NUR ---
Patient is located in the day room on assumption of care, reading magazines. She is disorganized and confused. Her mood is much improved, no tearfulness. She does ask repeatedly about when she is leaving and how she is going to get there. This nurse assured her that social work would be setting up her transportation and that she didn't need to worry about it. She is compliant with assessments and medications taken whole. No agitation. Patient denies any pain or discomfort. She appears to be sleeping comfortably at present time. Will continue to monitor.
[2020-11-10 05:52] VITALS: BP 156/97
[2020-11-10] MEDS: INSULIN LISPRO 300 UNITS/3 ML VIAL. SQ SCH ×4 (08:00→17:40)
--- NOTE | 2020-11-10 08:45 | PDOC ---
Exam Note: Jaren Note: This note is a late entry for 11/08/2020 covers elements not covered in my initial note. Subjective: The patient was seen individually in the morning of 11/08/2020 for a treatment team meeting with Jessica Chirinos, Letty Blunt (social media senior associate), Ami, activity therapy and Sal TOBIN, discussed and reviewed the chart. Discussed her progress, current psychotropics, reviewed drug interactions, risk-benefit ratio. She slept 7-1/2 hours previous night. The patient is doing better. She has been obsessing about wanting to meet family. She has attended 6 groups in the past week. Social service staff talked about her being raised in [place]. Crying spells have not recurred. Review of Systems: Ambulation impaired in wheelchair. No CV, , pulmonary, eye, ENT system symptoms on review. Mental Status Exam: The patient is reasonably oriented. Speech coherent. Abstraction fair. Computation impaired. Language function intact. Attention span fair. Mood and affect improved. No suicidal or homicidal ideation. Laboratory Data: Reviewed. Impression: Schizoaffective disorder bipolar type with psychotic features. Anxiety disorder unspecified. Impulse control disorder unspecified. Mild cognitive impairment. Plan: Continue to adjust her current psychotropics mentioned in my initial note. Valproic acid level is therapeutic. Wellbutrin XL is adequate at 300 mg, Risperdal 2 mg h.s., and Zyprexa p.r.n. Assessment: Vital Signs/I&O: Vital Signs Date Time Temp Pulse Resp B/P (MAP) Pulse Ox O2 Delivery O2 Flow Rate FiO2 11/10/20 05:52 96.8 73 16 156/97 (116) 98 Room Air I & O 11/09/20 11/09/20 11/10/20 15:00 23:00 07:00 Intake Total 780 ml 720 ml Balance 780 ml 720 ml Labs: Laboratory Tests Test 11/09/20 11:59 11/09/20 17:06 11/09/20 19:19 11/10/20 08:11 Glucose (Fingerstick) 335 mg/dL (70-99) H 337 mg/dL (70-99) H 178 mg/dL (70-99) H 111 mg/dL (70-99) H Current Medications: Meds: Laboratory Tests Test 11/09/20 11:59 11/09/20 17:06 11/09/20 19:19 11/10/20 08:11 Glucose (Fingerstick) 335 mg/dL 337 mg/dL 178 mg/dL 111 mg/dL Current Medications Medications (Trade) Dose Ordered Sig/Jenise Route PRN Reason Start Time Stop Time Status Last Admin Dose Admin Acetaminophen (Tylenol) 650 mg PRN Q6HRS PRN PO MILD PAIN / TEMP > 100.3'F 10/25/20 19:00 Multi-Ingredient Ointment (Analgesic [place]) 1 cody PRN QID PRN TP MUSCLE PAIN 10/25/20 19:00 Al Hydroxide/Mg Hydroxide (Mylanta Plus Xs) 15 ml PRN AFTMEALHC PRN PO DYSPEPSIA 10/25/20 19:00 Magnesium Hydroxide (Milk Of Magnesia) 2,400 mg PRN QHS PRN PO CONSTIPATION 10/25/20 19:00 Insulin Human Lispro (HumaLOG) 0-7 UNITS TIDWMEALS SQ 10/26/20 08:00 10/26/20 16:01 DC 10/26/20 12:20 Dextrose (Dextrose 50%-Water Syringe) 12.5 gm PRN Q15MIN PRN IV SEE COMMENTS 10/25/20 22:15 10/26/20 16:01 DC Insulin Human Lispro (HumaLOG) 10 units BID94 SQ 10/26/20 09:00 10/26/20 16:01 DC 10/26/20 09:00 Insulin Human Lispro (HumaLOG) 18 units NOON SQ 10/26/20 12:00 10/26/20 16:01 DC 10/26/20 12:00 Acetaminophen (Tylenol) 1,000 mg DAILY PO 10/26/20 09:00 11/09/20 09:15 Buspirone HCl (Buspar) 10 mg BID PO 10/25/20 23:00 10/31/20 17:02 DC 10/31/20 12:33 Furosemide (Lasix) 20 mg DAILY PO 10/26/20 09:00 11/09/20 09:14 Lorazepam (Ativan) 2 mg PRN Q4HRS PRN PO ANXIETY / AGITATION 10/25/20 23:00 10/30/20 20:05 Risperidone (RisperDAL) 0.75 mg QHS PO 10/25/20 23:00 10/31/20 17:02 DC 10/30/20 20:05 Sertraline HCl (Zoloft) 100 mg DAILY PO 10/26/20 09:00 11/02/20 17:22 DC 11/02/20 09:05 Amantadine HCl (Symmetrel) 100 mg HS PO 10/25/20 23:00 11/09/20 21:10 Non-Formulary Medication (Capsaicin/ Menthol (Salonpas Gel-Patch Hot)) 1 patch DAILY TP 10/26/20 09:00 UNV Divalproex Sodium (Depakote) 1,250 mg HS PO 10/25/20 23:00 10/26/20 13:06 DC 10/25/20 23:18 Insulin Glargine (Lantus Syringe) 16 unit NOON SQ 10/26/20 12:00 10/26/20 16:01 DC 10/26/20 12:00 Amylase/Lipase/ Protease (Zenpep 10,000) 2 cap DAILY PO 10/26/20 09:00 11/09/20 09:14 Meloxicam (Mobic) 15 mg HS PO 10/26/20 21:00 10/29/20 15:47 DC 10/28/20 20:05 Non-Formulary Medication (Insulin Lispro (Humalog)) 10 unit BID94 SQ 10/26/20 09:00 UNV Non-Formulary Medication (Insulin Lispro (Humalog)) 18 unit NOON SQ 10/26/20 12:00 UNV Nicotine (Nicoderm Cq 14mg Patch) 1 patch DAILY TD 10/26/20 09:00 11/09/20 09:18 Divalproex Sodium (Depakote Er) 1,000 mg HS PO 10/26/20 21:00 11/09/20 21:10 Divalproex Sodium (Depakote Er) 250 mg HS PO 10/26/20 21:00 11/09/20 21:11 Glucose (Insta-Glucose) 15 gm PRN Q15MIN PRN PO LOW BLOOD SUGAR 10/26/20 15:45 11/06/20 07:38 Insulin Glargine (Lantus Syringe) 8 unit NOON SQ 10/26/20 16:00 UNV Insulin Human Lispro (HumaLOG) 0-5 UNITS TIDWMEALS SQ 10/27/20 08:00 10/27/20 19:44 DC 10/27/20 17:29 Dextrose (Dextrose 50%-Water Syringe) 12.5 gm PRN Q15MIN PRN IV SEE COMMENTS 10/26/20 16:15 Insulin Human Lispro (HumaLOG) 0-5 UNITS QIDACHS SQ 10/27/20 21:00 10/28/20 11:58 DC 10/27/20 20:47 Insulin Glargine (Lantus Syringe) 10 unit QHS SQ 10/28/20 21:00 10/29/20 15:43 DC 10/28/20 20:07 Insulin Human Lispro (HumaLOG) 0-9 UNITS TIDWMEALS SQ 10/28/20 12:00 11/09/20 17:36 Dextrose (Dextrose 50%-Water Syringe) 12.5 gm PRN Q15MIN PRN IV SEE COMMENTS 10/28/20 12:00 UNV Insulin Human Lispro (HumaLOG) 12 units ONCE SQ 10/28/20 12:00 11/04/20 07:18 DC 10/28/20 12:17 Insulin Glargine (Lantus Syringe) 15 unit QHS SQ 10/29/20 21:00 11/01/20 12:43 DC 10/31/20 21:05 Risperidone (RisperDAL) 1 mg QHS PO 10/31/20 21:00 11/01/20 10:59 DC 10/31/20 20:42 Bupropion HCl (Wellbutrin Xl) 150 mg DAILY PO 11/01/20 09:00 11/02/20 17:22 DC 11/02/20 09:05 Risperidone (RisperDAL) 1.5 mg QHS PO 11/01/20 21:00 11/05/20 17:15 DC 11/04/20 20:14 Insulin Glargine (Lantus Syringe) 20 unit QHS SQ 11/01/20 21:00 11/03/20 19:16 DC 11/02/20 21:20 Insulin Human Lispro (HumaLOG) 12 units 1X ONCE SQ 11/01/20 19:45 11/01/20 19:46 DC 11/01/20 19:45 Bupropion HCl (Wellbutrin Xl) 300 mg DAILY PO 11/03/20 09:00 11/09/20 09:14 Sertraline HCl (Zoloft) 100 mg HS PO 11/03/20 21:00 11/09/20 21:10 Insulin Glargine (Lantus Syringe) 25 unit QHS SQ 11/03/20 21:00 11/06/20 10:19 DC 11/05/20 21:36 Insulin Human Lispro (HumaLOG) 15 units 1X ONCE SQ 11/03/20 19:30 11/03/20 19:31 DC 11/03/20 19:24 Olanzapine (ZyPREXA ZYDIS) 2.5 mg PRN Q2HRS PRN PO PSYCHOSIS 11/04/20 17:45 Olanzapine (ZyPREXA ZYDIS) 10 mg 1X ONCE PO 11/05/20 07:45 11/05/20 08:02 DC 11/05/20 08:10 Insulin Human Lispro (HumaLOG) 16 units ONCE SQ 11/05/20 12:30 11/05/20 12:30 DC Insulin Human Lispro (HumaLOG) 7 units 1X ONCE SQ 11/05/20 12:45 11/05/20 12:46 DC 11/05/20 13:09 Risperidone (RisperDAL) 2 mg QHS PO 11/05/20 21:00 11/09/20 21:09 Insulin Glargine (Lantus Syringe) 20 unit QHS SQ 11/06/20 21:00 11/09/20 21:13 Insulin Human Lispro (HumaLOG) 3 units ONCE SQ 11/08/20 12:00 11/08/20 13:43 DC Insulin Human Lispro (HumaLOG) 3 units 1X ONCE SQ 11/08/20 13:45 11/08/20 13:46 DC 11/08/20 13:45 I have reviewed the current psychotropics carefully including drug interactions. Risk benefit ratio favors no change other than as noted in my dictated progress note. Diagnosis: Problems: (1) Schizoaffective disorder, bipolar type (2) Impulse control disorder, unspecified (3) Mild cognitive impairment (4) Anxiety disorder, unspecified (5) Bipolar disorder, current episode mixed, severe, with psychotic features JESSICA RAMESH MD Nov 10, 2020 08:45
[2020-11-10] MEDS: LIPASE/PROTEAS/AMYLAS 10/32/42 CAPSULE.DR. PO SCH (09:00)
[2020-11-10] MEDS: buPROPion XL 300 MG TAB.ER.24H. PO SCH (11:16)
[2020-11-10] MEDS: ACETAMINOPHEN 500 MG TABLET PO SCH (11:16)
[2020-11-10] MEDS: NICOTINE 14MG PATCH. TD SCH (11:17)
[2020-11-10] MEDS: FUROSEMIDE 20 MG TABLET PO SCH (11:18)
[2020-11-10 16:14] VITALS: BP 198/99
--- NOTE | 2020-11-10 18:17 | NUR ---
NSG NOTE; Dr Glez here and addressed pt's elev BP and FSBS- new orders received. Deisy has been pleasant and interactive today, talking with staff, peers and family members on the phone. She has been appropriate and calm
[2020-11-10] MEDS: DIVALPROEX ER 250 MG TAB.ER.24H. PO SCH (20:06)
[2020-11-10] MEDS: AMANTADINE HCL 100 MG PO SCH (20:06)
[2020-11-10] MEDS: SERTRALINE 100 MG TABLET. PO SCH (20:06)
[2020-11-10] MEDS: risperiDONE 2 MG TABLET. PO SCH (20:06)
[2020-11-10] MEDS: DIVALPROEX ER 500 MG TAB.ER.24H PO SCH (20:07)
[2020-11-10] MEDS: INSULIN GLARGINE SYRINGE. SQ SCH (20:10)
--- NOTE | 2020-11-10 22:00 | PDOC ---
Exam Note: Jaren Note: Please also refer to the separate dictated note~for this date of service dictated separately.~Patient seen individually. Discussed the patient with Nursing staff reviewed the chart.~Reviewed interim history and current functioning. Reviewed vital signs,~Labs/ Radiology~and current medications noted below. Continue current treatment with the changes noted in the dictated addendum note Assessment: Vital Signs/I&O: Vital Signs Date Time Temp Pulse Resp B/P (MAP) Pulse Ox O2 Delivery O2 Flow Rate FiO2 11/10/20 16:14 98.1 84 20 198/99 (132) 100 11/10/20 05:52 Room Air I & O 11/09/20 11/09/20 11/10/20 14:59 22:59 06:59 Intake Total 780 ml 480 ml 240 ml Balance 780 ml 480 ml 240 ml Labs: Laboratory Tests Test 11/10/20 08:11 11/10/20 12:04 11/10/20 16:43 11/10/20 19:04 Glucose (Fingerstick) 111 mg/dL (70-99) H 196 mg/dL (70-99) H 452 mg/dL (70-99) H 182 mg/dL (70-99) H Current Medications: Meds: Laboratory Tests Test 11/10/20 08:11 11/10/20 12:04 11/10/20 16:43 11/10/20 19:04 Glucose (Fingerstick) 111 mg/dL 196 mg/dL 452 mg/dL 182 mg/dL Current Medications Medications (Trade) Dose Ordered Sig/Jenise Route PRN Reason Start Time Stop Time Status Last Admin Dose Admin Acetaminophen (Tylenol) 650 mg PRN Q6HRS PRN PO MILD PAIN / TEMP > 100.3'F 10/25/20 19:00 Multi-Ingredient Ointment (Analgesic [place]) 1 cody PRN QID PRN TP MUSCLE PAIN 10/25/20 19:00 Al Hydroxide/Mg Hydroxide (Mylanta Plus Xs) 15 ml PRN AFTMEALHC PRN PO DYSPEPSIA 10/25/20 19:00 Magnesium Hydroxide (Milk Of Magnesia) 2,400 mg PRN QHS PRN PO CONSTIPATION 10/25/20 19:00 Insulin Human Lispro (HumaLOG) 0-7 UNITS TIDWMEALS SQ 10/26/20 08:00 10/26/20 16:01 DC 10/26/20 12:20 Dextrose (Dextrose 50%-Water Syringe) 12.5 gm PRN Q15MIN PRN IV SEE COMMENTS 10/25/20 22:15 10/26/20 16:01 DC Insulin Human Lispro (HumaLOG) 10 units BID94 SQ 10/26/20 09:00 10/26/20 16:01 DC 10/26/20 09:00 Insulin Human Lispro (HumaLOG) 18 units NOON SQ 10/26/20 12:00 10/26/20 16:01 DC 10/26/20 12:00 Acetaminophen (Tylenol) 1,000 mg DAILY PO 10/26/20 09:00 11/10/20 11:16 Buspirone HCl (Buspar) 10 mg BID PO 10/25/20 23:00 10/31/20 17:02 DC 10/31/20 12:33 Furosemide (Lasix) 20 mg DAILY PO 10/26/20 09:00 11/10/20 11:18 Lorazepam (Ativan) 2 mg PRN Q4HRS PRN PO ANXIETY / AGITATION 10/25/20 23:00 10/30/20 20:05 Risperidone (RisperDAL) 0.75 mg QHS PO 10/25/20 23:00 10/31/20 17:02 DC 10/30/20 20:05 Sertraline HCl (Zoloft) 100 mg DAILY PO 10/26/20 09:00 11/02/20 17:22 DC 11/02/20 09:05 Amantadine HCl (Symmetrel) 100 mg HS PO 10/25/20 23:00 11/10/20 20:06 Non-Formulary Medication (Capsaicin/ Menthol (Salonpas Gel-Patch Hot)) 1 patch DAILY TP 10/26/20 09:00 UNV Divalproex Sodium (Depakote) 1,250 mg HS PO 10/25/20 23:00 10/26/20 13:06 DC 10/25/20 23:18 Insulin Glargine (Lantus Syringe) 16 unit NOON SQ 10/26/20 12:00 10/26/20 16:01 DC 10/26/20 12:00 Amylase/Lipase/ Protease (Zenpep 10,000) 2 cap DAILY PO 10/26/20 09:00 11/10/20 09:00 Meloxicam (Mobic) 15 mg HS PO 10/26/20 21:00 10/29/20 15:47 DC 10/28/20 20:05 Non-Formulary Medication (Insulin Lispro (Humalog)) 10 unit BID94 SQ 10/26/20 09:00 UNV Non-Formulary Medication (Insulin Lispro (Humalog)) 18 unit NOON SQ 10/26/20 12:00 UNV Nicotine (Nicoderm Cq 14mg Patch) 1 patch DAILY TD 10/26/20 09:00 11/10/20 11:17 Divalproex Sodium (Depakote Er) 1,000 mg HS PO 10/26/20 21:00 11/10/20 20:07 Divalproex Sodium (Depakote Er) 250 mg HS PO 10/26/20 21:00 11/10/20 20:06 Glucose (Insta-Glucose) 15 gm PRN Q15MIN PRN PO LOW BLOOD SUGAR 10/26/20 15:45 11/06/20 07:38 Insulin Glargine (Lantus Syringe) 8 unit NOON SQ 10/26/20 16:00 UNV Insulin Human Lispro (HumaLOG) 0-5 UNITS TIDWMEALS SQ 10/27/20 08:00 10/27/20 19:44 DC 10/27/20 17:29 Dextrose (Dextrose 50%-Water Syringe) 12.5 gm PRN Q15MIN PRN IV SEE COMMENTS 10/26/20 16:15 Insulin Human Lispro (HumaLOG) 0-5 UNITS QIDACHS SQ 10/27/20 21:00 10/28/20 11:58 DC 10/27/20 20:47 Insulin Glargine (Lantus Syringe) 10 unit QHS SQ 10/28/20 21:00 10/29/20 15:43 DC 10/28/20 20:07 Insulin Human Lispro (HumaLOG) 0-9 UNITS TIDWMEALS SQ 10/28/20 12:00 11/10/20 17:40 Dextrose (Dextrose 50%-Water Syringe) 12.5 gm PRN Q15MIN PRN IV SEE COMMENTS 10/28/20 12:00 UNV Insulin Human Lispro (HumaLOG) 12 units ONCE SQ 10/28/20 12:00 11/04/20 07:18 DC 10/28/20 12:17 Insulin Glargine (Lantus Syringe) 15 unit QHS SQ 10/29/20 21:00 11/01/20 12:43 DC 10/31/20 21:05 Risperidone (RisperDAL) 1 mg QHS PO 10/31/20 21:00 11/01/20 10:59 DC 10/31/20 20:42 Bupropion HCl (Wellbutrin Xl) 150 mg DAILY PO 11/01/20 09:00 11/02/20 17:22 DC 11/02/20 09:05 Risperidone (RisperDAL) 1.5 mg QHS PO 11/01/20 21:00 11/05/20 17:15 DC 11/04/20 20:14 Insulin Glargine (Lantus Syringe) 20 unit QHS SQ 11/01/20 21:00 11/03/20 19:16 DC 11/02/20 21:20 Insulin Human Lispro (HumaLOG) 12 units 1X ONCE SQ 11/01/20 19:45 11/01/20 19:46 DC 11/01/20 19:45 Bupropion HCl (Wellbutrin Xl) 300 mg DAILY PO 11/03/20 09:00 11/10/20 11:16 Sertraline HCl (Zoloft) 100 mg HS PO 11/03/20 21:00 11/10/20 20:06 Insulin Glargine (Lantus Syringe) 25 unit QHS SQ 11/03/20 21:00 11/06/20 10:19 DC 11/05/20 21:36 Insulin Human Lispro (HumaLOG) 15 units 1X ONCE SQ 11/03/20 19:30 11/03/20 19:31 DC 11/03/20 19:24 Olanzapine (ZyPREXA ZYDIS) 2.5 mg PRN Q2HRS PRN PO PSYCHOSIS 11/04/20 17:45 Olanzapine (ZyPREXA ZYDIS) 10 mg 1X ONCE PO 11/05/20 07:45 11/05/20 08:02 DC 11/05/20 08:10 Insulin Human Lispro (HumaLOG) 16 units ONCE SQ 11/05/20 12:30 11/05/20 12:30 DC Insulin Human Lispro (HumaLOG) 7 units 1X ONCE SQ 11/05/20 12:45 11/05/20 12:46 DC 11/05/20 13:09 Risperidone (RisperDAL) 2 mg QHS PO 11/05/20 21:00 11/10/20 20:06 Insulin Glargine (Lantus Syringe) 20 unit QHS SQ 11/06/20 21:00 11/10/20 20:10 Insulin Human Lispro (HumaLOG) 3 units ONCE SQ 11/08/20 12:00 11/08/20 13:43 DC Insulin Human Lispro (HumaLOG) 3 units 1X ONCE SQ 11/08/20 13:45 11/08/20 13:46 DC 11/08/20 13:45 Amlodipine Besylate (Norvasc) 2.5 mg DAILY PO 11/11/20 09:00 Insulin Human Lispro (HumaLOG) 5 units BIDPCLD SQ 11/10/20 17:30 11/10/20 17:40 Current Medications Medications (Trade) Dose Ordered Sig/Jenise Route PRN Reason Start Time Stop Time Status Last Admin Dose Admin Insulin Human Lispro (HumaLOG) 5 units BIDPCLD SQ 11/10/20 17:30 11/10/20 17:40 I have reviewed the current psychotropics carefully including drug interactions. Risk benefit ratio favors no change other than as noted in my dictated progress note. Diagnosis: Problems: (1) Schizoaffective disorder, bipolar type (2) Impulse control disorder, unspecified (3) Mild cognitive impairment (4) Anxiety disorder, unspecified (5) Bipolar disorder, current episode mixed, severe, with psychotic features JESSICA RAMESH MD Nov 10, 2020 22:00
--- NOTE | 2020-11-10 23:30 | NUR ---
Pt located in her room this evening reading magazines. Pt compliant with whole medications after asking what each pill was. Pt asking where social work was because she is ready to leave. Pt calm and cooperative.
--- NOTE | 2020-11-11 02:42 | PN ---
DATE: 11/10/2020 SUBJECTIVE: The patient is a 59-year-old -[place] female patient, whom I have seen today because her blood sugar is poorly controlled and her blood pressure also slightly high. She is on 20 units of Lantus insulin at nighttime. Her blood sugar values in the morning within acceptable range; however, her blood sugar tends to be higher before lunch and before supper. She is also on insulin sliding scale. Her blood pressure is labile. Given the pattern of her blood sugar, we decided to add 5 units scheduled before lunch and before supper. Continue with the same dose of Lantus at nighttime as well as a sliding scale as before. For her high blood pressure, I added a small dose of amlodipine at 2.5 mg. With this adjustment and monitor her over the next few days to see if these are effective or need to be adjusted further. Today, blood pressure was exceptionally high at 198/99; however, most of her other blood pressure between 130-160 systolic. Her blood sugar seemed to be well controlled in the morning and her blood sugar before lunch and before supper are high. This morning, her blood sugar was 111, before lunch was 196 and before supper was 450. DEXTER DR: Andres TID: [id number]
[2020-11-11 05:34] VITALS: BP 145/85
[2020-11-11] MEDS: NICOTINE 14MG PATCH. TD SCH (08:08)
[2020-11-11] MEDS: LIPASE/PROTEAS/AMYLAS 10/32/42 CAPSULE.DR. PO SCH (08:09)
[2020-11-11] MEDS: buPROPion XL 300 MG TAB.ER.24H. PO SCH (08:09)
[2020-11-11] MEDS: ACETAMINOPHEN 500 MG TABLET PO SCH (08:09)
[2020-11-11] MEDS: FUROSEMIDE 20 MG TABLET PO SCH (08:09)
[2020-11-11] MEDS: amLODIPine BESYLATE 2.5 MG TABLET PO SCH (08:14)
[2020-11-11] MEDS: INSULIN LISPRO 300 UNITS/3 ML VIAL. SQ SCH ×5 (08:16→17:30)
--- NOTE | 2020-11-11 08:56 | PDOC ---
Exam Note: Jaren Note: This note is a late entry for 11/09/2020 covers elements not covered in my initial note. Subjective: The patient was seen individually in the evening of 11/09/2020 with Maryanne TOBIN, discussed and reviewed the chart. She slept 7 hours previous night. The patient has a good day, has been pleasant, somewhat talkative, reading magazines and books, more oriented. I met with her in the dayroom. She was pleasant, verbal, interactive. Review of Systems: Ambulation impaired in wheelchair. No CV, , pulmonary, eye, ENT system symptoms on review. Mental Status Exam: The patient is reasonably oriented. Speech coherent. Abstraction fair. Computation impaired. Language function intact. Attention span fair. Mood and affect improved. Laboratory Data: Reviewed. Impression: Schizoaffective disorder bipolar type with psychotic features. Anxiety disorder unspecified. Impulse control disorder unspecified. Mild cognitive impairment. Plan: No change from initial note. If mood lability, psychotic symptoms resurface, we may need to increase Risperdal or even start scheduled Zyprexa since she responded very well to this. Tentative transition plans to the [facility] early next week. Assessment: Vital Signs/I&O: Vital Signs Date Time Temp Pulse Resp B/P (MAP) Pulse Ox O2 Delivery O2 Flow Rate FiO2 11/11/20 08:14 76 145/85 11/11/20 05:34 98.0 18 98 Room Air I & O 11/10/20 11/10/20 11/11/20 15:00 23:00 07:00 Intake Total 240 ml 480 ml Balance 240 ml 480 ml Labs: Laboratory Tests Test 11/10/20 12:04 11/10/20 16:43 11/10/20 19:04 11/11/20 07:44 Glucose (Fingerstick) 196 mg/dL (70-99) H 452 mg/dL (70-99) H 182 mg/dL (70-99) H 186 mg/dL (70-99) H Current Medications: Meds: Laboratory Tests Test 11/10/20 12:04 11/10/20 16:43 11/10/20 19:04 11/11/20 07:44 Glucose (Fingerstick) 196 mg/dL 452 mg/dL 182 mg/dL 186 mg/dL Current Medications Medications (Trade) Dose Ordered Sig/Jenise Route PRN Reason Start Time Stop Time Status Last Admin Dose Admin Acetaminophen (Tylenol) 650 mg PRN Q6HRS PRN PO MILD PAIN / TEMP > 100.3'F 10/25/20 19:00 Multi-Ingredient Ointment (Analgesic [place]) 1 cody PRN QID PRN TP MUSCLE PAIN 10/25/20 19:00 Al Hydroxide/Mg Hydroxide (Mylanta Plus Xs) 15 ml PRN AFTMEALHC PRN PO DYSPEPSIA 10/25/20 19:00 Magnesium Hydroxide (Milk Of Magnesia) 2,400 mg PRN QHS PRN PO CONSTIPATION 10/25/20 19:00 Insulin Human Lispro (HumaLOG) 0-7 UNITS TIDWMEALS SQ 10/26/20 08:00 10/26/20 16:01 DC 10/26/20 12:20 Dextrose (Dextrose 50%-Water Syringe) 12.5 gm PRN Q15MIN PRN IV SEE COMMENTS 10/25/20 22:15 10/26/20 16:01 DC Insulin Human Lispro (HumaLOG) 10 units BID94 SQ 10/26/20 09:00 10/26/20 16:01 DC 10/26/20 09:00 Insulin Human Lispro (HumaLOG) 18 units NOON SQ 10/26/20 12:00 10/26/20 16:01 DC 10/26/20 12:00 Acetaminophen (Tylenol) 1,000 mg DAILY PO 10/26/20 09:00 11/11/20 08:09 Buspirone HCl (Buspar) 10 mg BID PO 10/25/20 23:00 10/31/20 17:02 DC 10/31/20 12:33 Furosemide (Lasix) 20 mg DAILY PO 10/26/20 09:00 11/11/20 08:09 Lorazepam (Ativan) 2 mg PRN Q4HRS PRN PO ANXIETY / AGITATION 10/25/20 23:00 10/30/20 20:05 Risperidone (RisperDAL) 0.75 mg QHS PO 10/25/20 23:00 10/31/20 17:02 DC 10/30/20 20:05 Sertraline HCl (Zoloft) 100 mg DAILY PO 10/26/20 09:00 11/02/20 17:22 DC 11/02/20 09:05 Amantadine HCl (Symmetrel) 100 mg HS PO 10/25/20 23:00 11/10/20 20:06 Non-Formulary Medication (Capsaicin/ Menthol (Salonpas Gel-Patch Hot)) 1 patch DAILY TP 10/26/20 09:00 UNV Divalproex Sodium (Depakote) 1,250 mg HS PO 10/25/20 23:00 10/26/20 13:06 DC 10/25/20 23:18 Insulin Glargine (Lantus Syringe) 16 unit NOON SQ 10/26/20 12:00 10/26/20 16:01 DC 10/26/20 12:00 Amylase/Lipase/ Protease (Zenpep 10,000) 2 cap DAILY PO 10/26/20 09:00 11/11/20 08:09 Meloxicam (Mobic) 15 mg HS PO 10/26/20 21:00 10/29/20 15:47 DC 10/28/20 20:05 Non-Formulary Medication (Insulin Lispro (Humalog)) 10 unit BID94 SQ 10/26/20 09:00 UNV Non-Formulary Medication (Insulin Lispro (Humalog)) 18 unit NOON SQ 10/26/20 12:00 UNV Nicotine (Nicoderm Cq 14mg Patch) 1 patch DAILY TD 10/26/20 09:00 11/11/20 08:08 Divalproex Sodium (Depakote Er) 1,000 mg HS PO 10/26/20 21:00 11/10/20 20:07 Divalproex Sodium (Depakote Er) 250 mg HS PO 10/26/20 21:00 11/10/20 20:06 Glucose (Insta-Glucose) 15 gm PRN Q15MIN PRN PO LOW BLOOD SUGAR 10/26/20 15:45 11/06/20 07:38 Insulin Glargine (Lantus Syringe) 8 unit NOON SQ 10/26/20 16:00 UNV Insulin Human Lispro (HumaLOG) 0-5 UNITS TIDWMEALS SQ 10/27/20 08:00 10/27/20 19:44 DC 10/27/20 17:29 Dextrose (Dextrose 50%-Water Syringe) 12.5 gm PRN Q15MIN PRN IV SEE COMMENTS 10/26/20 16:15 Insulin Human Lispro (HumaLOG) 0-5 UNITS QIDACHS SQ 10/27/20 21:00 10/28/20 11:58 DC 10/27/20 20:47 Insulin Glargine (Lantus Syringe) 10 unit QHS SQ 10/28/20 21:00 10/29/20 15:43 DC 10/28/20 20:07 Insulin Human Lispro (HumaLOG) 0-9 UNITS TIDWMEALS SQ 10/28/20 12:00 11/11/20 08:16 Dextrose (Dextrose 50%-Water Syringe) 12.5 gm PRN Q15MIN PRN IV SEE COMMENTS 10/28/20 12:00 UNV Insulin Human Lispro (HumaLOG) 12 units ONCE SQ 10/28/20 12:00 11/04/20 07:18 DC 10/28/20 12:17 Insulin Glargine (Lantus Syringe) 15 unit QHS SQ 10/29/20 21:00 11/01/20 12:43 DC 10/31/20 21:05 Risperidone (RisperDAL) 1 mg QHS PO 10/31/20 21:00 11/01/20 10:59 DC 10/31/20 20:42 Bupropion HCl (Wellbutrin Xl) 150 mg DAILY PO 11/01/20 09:00 11/02/20 17:22 DC 11/02/20 09:05 Risperidone (RisperDAL) 1.5 mg QHS PO 11/01/20 21:00 11/05/20 17:15 DC 11/04/20 20:14 Insulin Glargine (Lantus Syringe) 20 unit QHS SQ 11/01/20 21:00 11/03/20 19:16 DC 11/02/20 21:20 Insulin Human Lispro (HumaLOG) 12 units 1X ONCE SQ 11/01/20 19:45 11/01/20 19:46 DC 11/01/20 19:45 Bupropion HCl (Wellbutrin Xl) 300 mg DAILY PO 11/03/20 09:00 11/11/20 08:09 Sertraline HCl (Zoloft) 100 mg HS PO 11/03/20 21:00 11/10/20 20:06 Insulin Glargine (Lantus Syringe) 25 unit QHS SQ 11/03/20 21:00 11/06/20 10:19 DC 11/05/20 21:36 Insulin Human Lispro (HumaLOG) 15 units 1X ONCE SQ 11/03/20 19:30 11/03/20 19:31 DC 11/03/20 19:24 Olanzapine (ZyPREXA ZYDIS) 2.5 mg PRN Q2HRS PRN PO PSYCHOSIS 11/04/20 17:45 Olanzapine (ZyPREXA ZYDIS) 10 mg 1X ONCE PO 11/05/20 07:45 11/05/20 08:02 DC 11/05/20 08:10 Insulin Human Lispro (HumaLOG) 16 units ONCE SQ 11/05/20 12:30 11/05/20 12:30 DC Insulin Human Lispro (HumaLOG) 7 units 1X ONCE SQ 11/05/20 12:45 11/05/20 12:46 DC 11/05/20 13:09 Risperidone (RisperDAL) 2 mg QHS PO 11/05/20 21:00 11/10/20 20:06 Insulin Glargine (Lantus Syringe) 20 unit QHS SQ 11/06/20 21:00 11/10/20 20:10 Insulin Human Lispro (HumaLOG) 3 units ONCE SQ 11/08/20 12:00 11/08/20 13:43 DC Insulin Human Lispro (HumaLOG) 3 units 1X ONCE SQ 11/08/20 13:45 11/08/20 13:46 DC 11/08/20 13:45 Amlodipine Besylate (Norvasc) 2.5 mg DAILY PO 11/11/20 09:00 11/11/20 08:14 Insulin Human Lispro (HumaLOG) 5 units BIDPCLD SQ 11/10/20 17:30 11/10/20 17:40 Current Medications Medications (Trade) Dose Ordered Sig/Jenise Route PRN Reason Start Time Stop Time Status Last Admin Dose Admin Amlodipine Besylate (Norvasc) 2.5 mg DAILY PO 11/11/20 09:00 11/11/20 08:14 Insulin Human Lispro (HumaLOG) 5 units BIDPCLD SQ 11/10/20 17:30 11/10/20 17:40 I have reviewed the current psychotropics carefully including drug interactions. Risk benefit ratio favors no change other than as noted in my dictated progress note. Diagnosis: Problems: (1) Schizoaffective disorder, bipolar type (2) Impulse control disorder, unspecified (3) Mild cognitive impairment (4) Anxiety disorder, unspecified (5) Bipolar disorder, current episode mixed, severe, with psychotic features JESSICA RAMESH MD Nov 11, 2020 08:56
[2020-11-11 16:04] VITALS: BP 140/81
--- NOTE | 2020-11-11 16:54 | NUR ---
Pt up adl to meals and day room. Has asked several times about when her meds are due next and for her list of phone numbers. Very forgetful but easily redirected. Was irritable at breakfast as peer was messing with her breakfast tray. Pt behavior did not escalate.
[2020-11-11] MEDS: SERTRALINE 100 MG TABLET. PO SCH (20:29)
[2020-11-11] MEDS: DIVALPROEX ER 250 MG TAB.ER.24H. PO SCH (20:29)
[2020-11-11] MEDS: risperiDONE 2 MG TABLET. PO SCH (20:29)
[2020-11-11] MEDS: AMANTADINE HCL 100 MG PO SCH (20:29)
[2020-11-11] MEDS: DIVALPROEX ER 500 MG TAB.ER.24H PO SCH (20:29)
[2020-11-11] MEDS: INSULIN GLARGINE SYRINGE. SQ SCH (20:33)
--- NOTE | 2020-11-11 21:58 | PDOC ---
Exam Note: Jaren Note: Please also refer to the separate dictated note~for this date of service dictated separately.~Patient seen individually. Discussed the patient with Nursing staff reviewed the chart.~Reviewed interim history and current functioning. Reviewed vital signs,~Labs/ Radiology~and current medications noted below. Continue current treatment with the changes noted in the dictated addendum note Assessment: Vital Signs/I&O: Vital Signs Date Time Temp Pulse Resp B/P (MAP) Pulse Ox O2 Delivery O2 Flow Rate FiO2 11/11/20 16:04 98.1 86 20 140/81 (100) 98 Room Air I & O 11/10/20 11/10/20 11/11/20 15:00 23:00 07:00 Intake Total 240 ml 480 ml Balance 240 ml 480 ml Labs: Laboratory Tests Test 11/11/20 07:44 11/11/20 11:56 11/11/20 16:47 11/11/20 19:26 Glucose (Fingerstick) 186 mg/dL (70-99) H 206 mg/dL (70-99) H 198 mg/dL (70-99) H 181 mg/dL (70-99) H Current Medications: Meds: Laboratory Tests Test 11/11/20 07:44 11/11/20 11:56 11/11/20 16:47 11/11/20 19:26 Glucose (Fingerstick) 186 mg/dL 206 mg/dL 198 mg/dL 181 mg/dL Current Medications Medications (Trade) Dose Ordered Sig/Jenise Route PRN Reason Start Time Stop Time Status Last Admin Dose Admin Acetaminophen (Tylenol) 650 mg PRN Q6HRS PRN PO MILD PAIN / TEMP > 100.3'F 10/25/20 19:00 Multi-Ingredient Ointment (Analgesic [place]) 1 cody PRN QID PRN TP MUSCLE PAIN 10/25/20 19:00 Al Hydroxide/Mg Hydroxide (Mylanta Plus Xs) 15 ml PRN AFTMEALHC PRN PO DYSPEPSIA 10/25/20 19:00 Magnesium Hydroxide (Milk Of Magnesia) 2,400 mg PRN QHS PRN PO CONSTIPATION 10/25/20 19:00 Insulin Human Lispro (HumaLOG) 0-7 UNITS TIDWMEALS SQ 10/26/20 08:00 10/26/20 16:01 DC 10/26/20 12:20 Dextrose (Dextrose 50%-Water Syringe) 12.5 gm PRN Q15MIN PRN IV SEE COMMENTS 10/25/20 22:15 10/26/20 16:01 DC Insulin Human Lispro (HumaLOG) 10 units BID94 SQ 10/26/20 09:00 10/26/20 16:01 DC 10/26/20 09:00 Insulin Human Lispro (HumaLOG) 18 units NOON SQ 10/26/20 12:00 10/26/20 16:01 DC 10/26/20 12:00 Acetaminophen (Tylenol) 1,000 mg DAILY PO 10/26/20 09:00 11/11/20 08:09 Buspirone HCl (Buspar) 10 mg BID PO 10/25/20 23:00 10/31/20 17:02 DC 10/31/20 12:33 Furosemide (Lasix) 20 mg DAILY PO 10/26/20 09:00 11/11/20 08:09 Lorazepam (Ativan) 2 mg PRN Q4HRS PRN PO ANXIETY / AGITATION 10/25/20 23:00 10/30/20 20:05 Risperidone (RisperDAL) 0.75 mg QHS PO 10/25/20 23:00 10/31/20 17:02 DC 10/30/20 20:05 Sertraline HCl (Zoloft) 100 mg DAILY PO 10/26/20 09:00 11/02/20 17:22 DC 11/02/20 09:05 Amantadine HCl (Symmetrel) 100 mg HS PO 10/25/20 23:00 11/11/20 20:29 Non-Formulary Medication (Capsaicin/ Menthol (Salonpas Gel-Patch Hot)) 1 patch DAILY TP 10/26/20 09:00 UNV Divalproex Sodium (Depakote) 1,250 mg HS PO 10/25/20 23:00 10/26/20 13:06 DC 10/25/20 23:18 Insulin Glargine (Lantus Syringe) 16 unit NOON SQ 10/26/20 12:00 10/26/20 16:01 DC 10/26/20 12:00 Amylase/Lipase/ Protease (Zenpep 10,000) 2 cap DAILY PO 10/26/20 09:00 11/11/20 08:09 Meloxicam (Mobic) 15 mg HS PO 10/26/20 21:00 10/29/20 15:47 DC 10/28/20 20:05 Non-Formulary Medication (Insulin Lispro (Humalog)) 10 unit BID94 SQ 10/26/20 09:00 UNV Non-Formulary Medication (Insulin Lispro (Humalog)) 18 unit NOON SQ 10/26/20 12:00 UNV Nicotine (Nicoderm Cq 14mg Patch) 1 patch DAILY TD 10/26/20 09:00 11/11/20 08:08 Divalproex Sodium (Depakote Er) 1,000 mg HS PO 10/26/20 21:00 11/11/20 20:29 Divalproex Sodium (Depakote Er) 250 mg HS PO 10/26/20 21:00 11/11/20 20:29 Glucose (Insta-Glucose) 15 gm PRN Q15MIN PRN PO LOW BLOOD SUGAR 10/26/20 15:45 11/06/20 07:38 Insulin Glargine (Lantus Syringe) 8 unit NOON SQ 10/26/20 16:00 UNV Insulin Human Lispro (HumaLOG) 0-5 UNITS TIDWMEALS SQ 10/27/20 08:00 10/27/20 19:44 DC 10/27/20 17:29 Dextrose (Dextrose 50%-Water Syringe) 12.5 gm PRN Q15MIN PRN IV SEE COMMENTS 10/26/20 16:15 Insulin Human Lispro (HumaLOG) 0-5 UNITS QIDACHS SQ 10/27/20 21:00 10/28/20 11:58 DC 10/27/20 20:47 Insulin Glargine (Lantus Syringe) 10 unit QHS SQ 10/28/20 21:00 10/29/20 15:43 DC 10/28/20 20:07 Insulin Human Lispro (HumaLOG) 0-9 UNITS TIDWMEALS SQ 10/28/20 12:00 11/11/20 17:00 Dextrose (Dextrose 50%-Water Syringe) 12.5 gm PRN Q15MIN PRN IV SEE COMMENTS 10/28/20 12:00 UNV Insulin Human Lispro (HumaLOG) 12 units ONCE SQ 10/28/20 12:00 11/04/20 07:18 DC 10/28/20 12:17 Insulin Glargine (Lantus Syringe) 15 unit QHS SQ 10/29/20 21:00 11/01/20 12:43 DC 10/31/20 21:05 Risperidone (RisperDAL) 1 mg QHS PO 10/31/20 21:00 11/01/20 10:59 DC 10/31/20 20:42 Bupropion HCl (Wellbutrin Xl) 150 mg DAILY PO 11/01/20 09:00 11/02/20 17:22 DC 11/02/20 09:05 Risperidone (RisperDAL) 1.5 mg QHS PO 11/01/20 21:00 11/05/20 17:15 DC 11/04/20 20:14 Insulin Glargine (Lantus Syringe) 20 unit QHS SQ 11/01/20 21:00 11/03/20 19:16 DC 11/02/20 21:20 Insulin Human Lispro (HumaLOG) 12 units 1X ONCE SQ 11/01/20 19:45 11/01/20 19:46 DC 11/01/20 19:45 Bupropion HCl (Wellbutrin Xl) 300 mg DAILY PO 11/03/20 09:00 11/11/20 08:09 Sertraline HCl (Zoloft) 100 mg HS PO 11/03/20 21:00 11/11/20 20:29 Insulin Glargine (Lantus Syringe) 25 unit QHS SQ 11/03/20 21:00 11/06/20 10:19 DC 11/05/20 21:36 Insulin Human Lispro (HumaLOG) 15 units 1X ONCE SQ 11/03/20 19:30 11/03/20 19:31 DC 11/03/20 19:24 Olanzapine (ZyPREXA ZYDIS) 2.5 mg PRN Q2HRS PRN PO PSYCHOSIS 11/04/20 17:45 Olanzapine (ZyPREXA ZYDIS) 10 mg 1X ONCE PO 11/05/20 07:45 11/05/20 08:02 DC 11/05/20 08:10 Insulin Human Lispro (HumaLOG) 16 units ONCE SQ 11/05/20 12:30 11/05/20 12:30 DC Insulin Human Lispro (HumaLOG) 7 units 1X ONCE SQ 11/05/20 12:45 11/05/20 12:46 DC 11/05/20 13:09 Risperidone (RisperDAL) 2 mg QHS PO 11/05/20 21:00 11/11/20 20:29 Insulin Glargine (Lantus Syringe) 20 unit QHS SQ 11/06/20 21:00 11/11/20 20:33 Insulin Human Lispro (HumaLOG) 3 units ONCE SQ 11/08/20 12:00 11/08/20 13:43 DC Insulin Human Lispro (HumaLOG) 3 units 1X ONCE SQ 11/08/20 13:45 11/08/20 13:46 DC 11/08/20 13:45 Amlodipine Besylate (Norvasc) 2.5 mg DAILY PO 11/11/20 09:00 11/11/20 08:14 Insulin Human Lispro (HumaLOG) 5 units BIDPCLD SQ 11/10/20 17:30 11/11/20 17:30 Current Medications Medications (Trade) Dose Ordered Sig/Jenise Route PRN Reason Start Time Stop Time Status Last Admin Dose Admin Amlodipine Besylate (Norvasc) 2.5 mg DAILY PO 11/11/20 09:00 11/11/20 08:14 I have reviewed the current psychotropics carefully including drug interactions. Risk benefit ratio favors no change other than as noted in my dictated progress note. Diagnosis: Problems: (1) Schizoaffective disorder, bipolar type (2) Impulse control disorder, unspecified (3) Mild cognitive impairment (4) Anxiety disorder, unspecified (5) Bipolar disorder, current episode mixed, severe, with psychotic features JESSICA RAMESH MD Nov 11, 2020 21:58
--- NOTE | 2020-11-11 23:26 | NUR ---
Pt calm and pleasant this evening. Compliant with whole medications. Asking when she can leave. Withdrawn to room reading magazines.
[2020-11-12 05:39] VITALS: BP 105/70
[2020-11-12] MEDS: DEXTROSE ORAL GEL 15 GM TUBE. PO PRN (07:35)
[2020-11-12] MEDS ORDERED: DEXTROSE ORAL GEL 15 GM TUBE. PO PRN (07:45)
[2020-11-12] MEDS: FUROSEMIDE 20 MG TABLET PO SCH (08:52)
[2020-11-12] MEDS: ACETAMINOPHEN 500 MG TABLET PO SCH (08:52)
[2020-11-12] MEDS: buPROPion XL 300 MG TAB.ER.24H. PO SCH (08:53)
[2020-11-12] MEDS: amLODIPine BESYLATE 2.5 MG TABLET PO SCH (08:53)
[2020-11-12] MEDS: INSULIN LISPRO 300 UNITS/3 ML VIAL. SQ SCH ×5 (08:53→17:42)
[2020-11-12] MEDS: LIPASE/PROTEAS/AMYLAS 10/32/42 CAPSULE.DR. PO SCH (08:53)
[2020-11-12] MEDS: NICOTINE 14MG PATCH. TD SCH (08:54)
--- NOTE | 2020-11-12 09:05 | PDOC ---
Exam Note: Jaren Note: This note is a late entry for 11/10/2020 covers elements not covered in my initial note. Subjective: The patient was seen individually in the evening of 11/10/2020 with Maryanne TOBIN, discussed and reviewed the chart. She slept 5-1/2 hours previous night. Appetite is 75%. Her blood sugar has been somewhat elevated in the evening. We will defer to Dr. Glez. BP was elevated as well. She had a telephone visit with her daughter and sister and seemed to do well and talked appropriately to them. No crying spells noted. Review of Systems: Ambulation impaired in wheelchair. No CV, , pulmonary, eye, ENT system symptoms on review. Mental Status Exam: The patient is reasonably oriented. She is calm, cooperative, somewhat social interactive. She talked about the conversation with her daughter over the phone. Speech coherent. Abstraction fair. Computation impaired. Language function intact. Attention span fair. Mood and affect less anxious. Laboratory Data: Reviewed. Impression: Schizoaffective disorder bipolar type with psychotic features. Anxiety disorder unspecified. Impulse control disorder unspecified. Mild cognitive impairment. Plan: No change from initial note. Assessment: Vital Signs/I&O: Vital Signs Date Time Temp Pulse Resp B/P (MAP) Pulse Ox O2 Delivery O2 Flow Rate FiO2 11/12/20 08:53 76 105/70 11/12/20 05:39 96.9 16 99 11/11/20 16:04 Room Air I & O 11/11/20 11/11/20 11/12/20 14:59 22:59 06:59 Intake Total 480 ml 300 ml 120 ml Balance 480 ml 300 ml 120 ml Labs: Laboratory Tests Test 11/11/20 11:56 11/11/20 16:47 11/11/20 19:26 11/12/20 07:27 Glucose (Fingerstick) 206 mg/dL (70-99) H 198 mg/dL (70-99) H 181 mg/dL (70-99) H 43 mg/dL (70-99) L Test 11/12/20 08:08 Glucose (Fingerstick) 92 mg/dL (70-99) Current Medications: Meds: Laboratory Tests Test 11/11/20 11:56 11/11/20 16:47 11/11/20 19:26 11/12/20 07:27 Glucose (Fingerstick) 206 mg/dL 198 mg/dL 181 mg/dL 43 mg/dL Test 11/12/20 08:08 Glucose (Fingerstick) 92 mg/dL Current Medications Medications (Trade) Dose Ordered Sig/Jenise Route PRN Reason Start Time Stop Time Status Last Admin Dose Admin Acetaminophen (Tylenol) 650 mg PRN Q6HRS PRN PO MILD PAIN / TEMP > 100.3'F 10/25/20 19:00 Multi-Ingredient Ointment (Analgesic [place]) 1 cody PRN QID PRN TP MUSCLE PAIN 10/25/20 19:00 Al Hydroxide/Mg Hydroxide (Mylanta Plus Xs) 15 ml PRN AFTMEALHC PRN PO DYSPEPSIA 10/25/20 19:00 Magnesium Hydroxide (Milk Of Magnesia) 2,400 mg PRN QHS PRN PO CONSTIPATION 10/25/20 19:00 Insulin Human Lispro (HumaLOG) 0-7 UNITS TIDWMEALS SQ 10/26/20 08:00 10/26/20 16:01 DC 10/26/20 12:20 Dextrose (Dextrose 50%-Water Syringe) 12.5 gm PRN Q15MIN PRN IV SEE COMMENTS 10/25/20 22:15 10/26/20 16:01 DC Insulin Human Lispro (HumaLOG) 10 units BID94 SQ 10/26/20 09:00 10/26/20 16:01 DC 10/26/20 09:00 Insulin Human Lispro (HumaLOG) 18 units NOON SQ 10/26/20 12:00 10/26/20 16:01 DC 10/26/20 12:00 Acetaminophen (Tylenol) 1,000 mg DAILY PO 10/26/20 09:00 11/12/20 08:52 Buspirone HCl (Buspar) 10 mg BID PO 10/25/20 23:00 10/31/20 17:02 DC 10/31/20 12:33 Furosemide (Lasix) 20 mg DAILY PO 10/26/20 09:00 11/12/20 08:52 Lorazepam (Ativan) 2 mg PRN Q4HRS PRN PO ANXIETY / AGITATION 10/25/20 23:00 10/30/20 20:05 Risperidone (RisperDAL) 0.75 mg QHS PO 10/25/20 23:00 10/31/20 17:02 DC 10/30/20 20:05 Sertraline HCl (Zoloft) 100 mg DAILY PO 10/26/20 09:00 11/02/20 17:22 DC 11/02/20 09:05 Amantadine HCl (Symmetrel) 100 mg HS PO 10/25/20 23:00 11/11/20 20:29 Non-Formulary Medication (Capsaicin/ Menthol (Salonpas Gel-Patch Hot)) 1 patch DAILY TP 10/26/20 09:00 UNV Divalproex Sodium (Depakote) 1,250 mg HS PO 10/25/20 23:00 10/26/20 13:06 DC 10/25/20 23:18 Insulin Glargine (Lantus Syringe) 16 unit NOON SQ 10/26/20 12:00 10/26/20 16:01 DC 10/26/20 12:00 Amylase/Lipase/ Protease (Zenpep 10,000) 2 cap DAILY PO 10/26/20 09:00 11/12/20 08:53 Meloxicam (Mobic) 15 mg HS PO 10/26/20 21:00 10/29/20 15:47 DC 10/28/20 20:05 Non-Formulary Medication (Insulin Lispro (Humalog)) 10 unit BID94 SQ 10/26/20 09:00 UNV Non-Formulary Medication (Insulin Lispro (Humalog)) 18 unit NOON SQ 10/26/20 12:00 UNV Nicotine (Nicoderm Cq 14mg Patch) 1 patch DAILY TD 10/26/20 09:00 11/12/20 08:54 Divalproex Sodium (Depakote Er) 1,000 mg HS PO 10/26/20 21:00 11/11/20 20:29 Divalproex Sodium (Depakote Er) 250 mg HS PO 10/26/20 21:00 11/11/20 20:29 Glucose (Insta-Glucose) 15 gm PRN Q15MIN PRN PO LOW BLOOD SUGAR 10/26/20 15:45 11/12/20 07:35 Insulin Glargine (Lantus Syringe) 8 unit NOON SQ 10/26/20 16:00 UNV Insulin Human Lispro (HumaLOG) 0-5 UNITS TIDWMEALS SQ 10/27/20 08:00 10/27/20 19:44 DC 10/27/20 17:29 Dextrose (Dextrose 50%-Water Syringe) 12.5 gm PRN Q15MIN PRN IV SEE COMMENTS 10/26/20 16:15 Insulin Human Lispro (HumaLOG) 0-5 UNITS QIDACHS SQ 10/27/20 21:00 10/28/20 11:58 DC 10/27/20 20:47 Insulin Glargine (Lantus Syringe) 10 unit QHS SQ 10/28/20 21:00 10/29/20 15:43 DC 10/28/20 20:07 Insulin Human Lispro (HumaLOG) 0-9 UNITS TIDWMEALS SQ 10/28/20 12:00 11/11/20 17:00 Dextrose (Dextrose 50%-Water Syringe) 12.5 gm PRN Q15MIN PRN IV SEE COMMENTS 10/28/20 12:00 UNV Insulin Human Lispro (HumaLOG) 12 units ONCE SQ 10/28/20 12:00 11/04/20 07:18 DC 10/28/20 12:17 Insulin Glargine (Lantus Syringe) 15 unit QHS SQ 10/29/20 21:00 11/01/20 12:43 DC 10/31/20 21:05 Risperidone (RisperDAL) 1 mg QHS PO 10/31/20 21:00 11/01/20 10:59 DC 10/31/20 20:42 Bupropion HCl (Wellbutrin Xl) 150 mg DAILY PO 11/01/20 09:00 11/02/20 17:22 DC 11/02/20 09:05 Risperidone (RisperDAL) 1.5 mg QHS PO 11/01/20 21:00 11/05/20 17:15 DC 11/04/20 20:14 Insulin Glargine (Lantus Syringe) 20 unit QHS SQ 11/01/20 21:00 11/03/20 19:16 DC 11/02/20 21:20 Insulin Human Lispro (HumaLOG) 12 units 1X ONCE SQ 11/01/20 19:45 11/01/20 19:46 DC 11/01/20 19:45 Bupropion HCl (Wellbutrin Xl) 300 mg DAILY PO 11/03/20 09:00 11/12/20 08:53 Sertraline HCl (Zoloft) 100 mg HS PO 11/03/20 21:00 11/11/20 20:29 Insulin Glargine (Lantus Syringe) 25 unit QHS SQ 11/03/20 21:00 11/06/20 10:19 DC 11/05/20 21:36 Insulin Human Lispro (HumaLOG) 15 units 1X ONCE SQ 11/03/20 19:30 11/03/20 19:31 DC 11/03/20 19:24 Olanzapine (ZyPREXA ZYDIS) 2.5 mg PRN Q2HRS PRN PO PSYCHOSIS 11/04/20 17:45 Olanzapine (ZyPREXA ZYDIS) 10 mg 1X ONCE PO 11/05/20 07:45 11/05/20 08:02 DC 11/05/20 08:10 Insulin Human Lispro (HumaLOG) 16 units ONCE SQ 11/05/20 12:30 11/05/20 12:30 DC Insulin Human Lispro (HumaLOG) 7 units 1X ONCE SQ 11/05/20 12:45 11/05/20 12:46 DC 11/05/20 13:09 Risperidone (RisperDAL) 2 mg QHS PO 11/05/20 21:00 11/11/20 20:29 Insulin Glargine (Lantus Syringe) 20 unit QHS SQ 11/06/20 21:00 11/11/20 20:33 Insulin Human Lispro (HumaLOG) 3 units ONCE SQ 11/08/20 12:00 11/08/20 13:43 DC Insulin Human Lispro (HumaLOG) 3 units 1X ONCE SQ 11/08/20 13:45 11/08/20 13:46 DC 11/08/20 13:45 Amlodipine Besylate (Norvasc) 2.5 mg DAILY PO 11/11/20 09:00 11/11/20 08:14 Insulin Human Lispro (HumaLOG) 5 units BIDPCLD SQ 11/10/20 17:30 11/11/20 17:30 Glucose (Insta-Glucose) 15 gm PRN Q15MIN PRN PO LOW BLOOD SUGAR 11/12/20 07:45 I have reviewed the current psychotropics carefully including drug interactions. Risk benefit ratio favors no change other than as noted in my dictated progress note. Diagnosis: Problems: (1) Schizoaffective disorder, bipolar type (2) Impulse control disorder, unspecified (3) Mild cognitive impairment (4) Anxiety disorder, unspecified (5) Bipolar disorder, current episode mixed, severe, with psychotic features JESSICA RAMESH MD Nov 12, 2020 09:05
--- NOTE | 2020-11-12 09:35 | PDOC ---
Exam Note: Jaren Note: This note is a late entry for 11/11/2020 covers elements not covered in my initial note. Subjective: The patient was seen individually in the evening of 11/11/2020 with Corry TOBIN, discussed and reviewed the chart. She slept 8 hours previous night. The patient has been somewhat forgetful. At one point she raised her voice towards another demented patient who was being intrusive but some of this is understandable. BP is elevated. She was started on Norvasc today Dr. Glez. Review of Systems: Ambulation impaired in wheelchair. No CV, , pulmonary, eye, ENT system symptoms on review. Mental Status Exam: The patient is reasonably oriented. I met with her in the dayroom. Speech coherent. Abstraction fair. Computation impaired. Language function intact. Attention span fair. Mood and affect appears much less labile. She was pleasant, verbal, interactive. Laboratory Data: Reviewed. Impression: Schizoaffective disorder bipolar type with psychotic features. Anxiety disorder unspecified. Impulse control disorder unspecified. Mild cognitive impairment. Plan: No change from initial note. Assessment: Vital Signs/I&O: Vital Signs Date Time Temp Pulse Resp B/P (MAP) Pulse Ox O2 Delivery O2 Flow Rate FiO2 11/12/20 08:53 76 105/70 11/12/20 05:39 96.9 16 99 11/11/20 16:04 Room Air I & O 11/11/20 11/11/20 11/12/20 15:00 23:00 07:00 Intake Total 480 ml 300 ml 120 ml Balance 480 ml 300 ml 120 ml Labs: Laboratory Tests Test 11/11/20 11:56 11/11/20 16:47 11/11/20 19:26 11/12/20 07:27 Glucose (Fingerstick) 206 mg/dL (70-99) H 198 mg/dL (70-99) H 181 mg/dL (70-99) H 43 mg/dL (70-99) L Test 11/12/20 08:08 Glucose (Fingerstick) 92 mg/dL (70-99) Current Medications: Meds: Laboratory Tests Test 11/11/20 11:56 11/11/20 16:47 11/11/20 19:26 11/12/20 07:27 Glucose (Fingerstick) 206 mg/dL 198 mg/dL 181 mg/dL 43 mg/dL Test 11/12/20 08:08 Glucose (Fingerstick) 92 mg/dL Current Medications Medications (Trade) Dose Ordered Sig/Jenise Route PRN Reason Start Time Stop Time Status Last Admin Dose Admin Acetaminophen (Tylenol) 650 mg PRN Q6HRS PRN PO MILD PAIN / TEMP > 100.3'F 10/25/20 19:00 Multi-Ingredient Ointment (Analgesic Carbon) 1 cody PRN QID PRN TP MUSCLE PAIN 10/25/20 19:00 Al Hydroxide/Mg Hydroxide (Mylanta Plus Xs) 15 ml PRN AFTMEALHC PRN PO DYSPEPSIA 10/25/20 19:00 Magnesium Hydroxide (Milk Of Magnesia) 2,400 mg PRN QHS PRN PO CONSTIPATION 10/25/20 19:00 Insulin Human Lispro (HumaLOG) 0-7 UNITS TIDWMEALS SQ 10/26/20 08:00 10/26/20 16:01 DC 10/26/20 12:20 Dextrose (Dextrose 50%-Water Syringe) 12.5 gm PRN Q15MIN PRN IV SEE COMMENTS 10/25/20 22:15 10/26/20 16:01 DC Insulin Human Lispro (HumaLOG) 10 units BID94 SQ 10/26/20 09:00 10/26/20 16:01 DC 10/26/20 09:00 Insulin Human Lispro (HumaLOG) 18 units NOON SQ 10/26/20 12:00 10/26/20 16:01 DC 10/26/20 12:00 Acetaminophen (Tylenol) 1,000 mg DAILY PO 10/26/20 09:00 11/12/20 08:52 Buspirone HCl (Buspar) 10 mg BID PO 10/25/20 23:00 10/31/20 17:02 DC 10/31/20 12:33 Furosemide (Lasix) 20 mg DAILY PO 10/26/20 09:00 11/12/20 08:52 Lorazepam (Ativan) 2 mg PRN Q4HRS PRN PO ANXIETY / AGITATION 10/25/20 23:00 10/30/20 20:05 Risperidone (RisperDAL) 0.75 mg QHS PO 10/25/20 23:00 10/31/20 17:02 DC 10/30/20 20:05 Sertraline HCl (Zoloft) 100 mg DAILY PO 10/26/20 09:00 11/02/20 17:22 DC 11/02/20 09:05 Amantadine HCl (Symmetrel) 100 mg HS PO 10/25/20 23:00 11/11/20 20:29 Non-Formulary Medication (Capsaicin/ Menthol (Salonpas Gel-Patch Hot)) 1 patch DAILY TP 10/26/20 09:00 UNV Divalproex Sodium (Depakote) 1,250 mg HS PO 10/25/20 23:00 10/26/20 13:06 DC 10/25/20 23:18 Insulin Glargine (Lantus Syringe) 16 unit NOON SQ 10/26/20 12:00 10/26/20 16:01 DC 10/26/20 12:00 Amylase/Lipase/ Protease (Zenpep 10,000) 2 cap DAILY PO 10/26/20 09:00 11/12/20 08:53 Meloxicam (Mobic) 15 mg HS PO 10/26/20 21:00 10/29/20 15:47 DC 10/28/20 20:05 Non-Formulary Medication (Insulin Lispro (Humalog)) 10 unit BID94 SQ 10/26/20 09:00 UNV Non-Formulary Medication (Insulin Lispro (Humalog)) 18 unit NOON SQ 10/26/20 12:00 UNV Nicotine (Nicoderm Cq 14mg Patch) 1 patch DAILY TD 10/26/20 09:00 11/12/20 08:54 Divalproex Sodium (Depakote Er) 1,000 mg HS PO 10/26/20 21:00 11/11/20 20:29 Divalproex Sodium (Depakote Er) 250 mg HS PO 10/26/20 21:00 11/11/20 20:29 Glucose (Insta-Glucose) 15 gm PRN Q15MIN PRN PO LOW BLOOD SUGAR 10/26/20 15:45 11/12/20 07:35 Insulin Glargine (Lantus Syringe) 8 unit NOON SQ 10/26/20 16:00 UNV Insulin Human Lispro (HumaLOG) 0-5 UNITS TIDWMEALS SQ 10/27/20 08:00 10/27/20 19:44 DC 10/27/20 17:29 Dextrose (Dextrose 50%-Water Syringe) 12.5 gm PRN Q15MIN PRN IV SEE COMMENTS 10/26/20 16:15 Insulin Human Lispro (HumaLOG) 0-5 UNITS QIDACHS SQ 10/27/20 21:00 10/28/20 11:58 DC 10/27/20 20:47 Insulin Glargine (Lantus Syringe) 10 unit QHS SQ 10/28/20 21:00 10/29/20 15:43 DC 10/28/20 20:07 Insulin Human Lispro (HumaLOG) 0-9 UNITS TIDWMEALS SQ 10/28/20 12:00 11/11/20 17:00 Dextrose (Dextrose 50%-Water Syringe) 12.5 gm PRN Q15MIN PRN IV SEE COMMENTS 10/28/20 12:00 UNV Insulin Human Lispro (HumaLOG) 12 units ONCE SQ 10/28/20 12:00 11/04/20 07:18 DC 10/28/20 12:17 Insulin Glargine (Lantus Syringe) 15 unit QHS SQ 10/29/20 21:00 11/01/20 12:43 DC 10/31/20 21:05 Risperidone (RisperDAL) 1 mg QHS PO 10/31/20 21:00 11/01/20 10:59 DC 10/31/20 20:42 Bupropion HCl (Wellbutrin Xl) 150 mg DAILY PO 11/01/20 09:00 11/02/20 17:22 DC 11/02/20 09:05 Risperidone (RisperDAL) 1.5 mg QHS PO 11/01/20 21:00 11/05/20 17:15 DC 11/04/20 20:14 Insulin Glargine (Lantus Syringe) 20 unit QHS SQ 11/01/20 21:00 11/03/20 19:16 DC 11/02/20 21:20 Insulin Human Lispro (HumaLOG) 12 units 1X ONCE SQ 11/01/20 19:45 11/01/20 19:46 DC 11/01/20 19:45 Bupropion HCl (Wellbutrin Xl) 300 mg DAILY PO 11/03/20 09:00 11/12/20 08:53 Sertraline HCl (Zoloft) 100 mg HS PO 11/03/20 21:00 11/11/20 20:29 Insulin Glargine (Lantus Syringe) 25 unit QHS SQ 11/03/20 21:00 11/06/20 10:19 DC 11/05/20 21:36 Insulin Human Lispro (HumaLOG) 15 units 1X ONCE SQ 11/03/20 19:30 11/03/20 19:31 DC 11/03/20 19:24 Olanzapine (ZyPREXA ZYDIS) 2.5 mg PRN Q2HRS PRN PO PSYCHOSIS 11/04/20 17:45 Olanzapine (ZyPREXA ZYDIS) 10 mg 1X ONCE PO 11/05/20 07:45 11/05/20 08:02 DC 11/05/20 08:10 Insulin Human Lispro (HumaLOG) 16 units ONCE SQ 11/05/20 12:30 11/05/20 12:30 DC Insulin Human Lispro (HumaLOG) 7 units 1X ONCE SQ 11/05/20 12:45 11/05/20 12:46 DC 11/05/20 13:09 Risperidone (RisperDAL) 2 mg QHS PO 11/05/20 21:00 11/11/20 20:29 Insulin Glargine (Lantus Syringe) 20 unit QHS SQ 11/06/20 21:00 11/11/20 20:33 Insulin Human Lispro (HumaLOG) 3 units ONCE SQ 11/08/20 12:00 11/08/20 13:43 DC Insulin Human Lispro (HumaLOG) 3 units 1X ONCE SQ 11/08/20 13:45 11/08/20 13:46 DC 11/08/20 13:45 Amlodipine Besylate (Norvasc) 2.5 mg DAILY PO 11/11/20 09:00 11/11/20 08:14 Insulin Human Lispro (HumaLOG) 5 units BIDPCLD SQ 11/10/20 17:30 11/11/20 17:30 Glucose (Insta-Glucose) 15 gm PRN Q15MIN PRN PO LOW BLOOD SUGAR 11/12/20 07:45 I have reviewed the current psychotropics carefully including drug interactions. Risk benefit ratio favors no change other than as noted in my dictated progress note. Diagnosis: Problems: (1) Schizoaffective disorder, bipolar type (2) Impulse control disorder, unspecified (3) Mild cognitive impairment (4) Anxiety disorder, unspecified (5) Bipolar disorder, current episode mixed, severe, with psychotic features JESSICA RAMESH MD Nov 12, 2020 09:35
[2020-11-12 09:45] LABS: ALBUMIN 2.8 g/dL (3.4-5.0); ALBUMIN/GLOBULIN RATIO 0.8 (1.0-1.7); CALCIUM 8.2 mg/dL (8.5-10.1); CREATININE 0.9 mg/dL (0.6-1.0); GFR 77.5; POTASSIUM 4.3 mmol/L (3.5-5.1); TOTAL BILIRUBIN 0.2 mg/dL (0.2-1.0); TOTAL PROTEIN 6.2 g/dL (6.4-8.2)
--- NOTE | 2020-11-12 09:55 | NUR ---
NSG NOTE; FSBS 43 at 07. ASSISTANT QUALITY MANAGER woke pt and gave her apple juice x2. pt asymptomatic. Glucose gel given at 0735. FSBS 92 at 0808
[2020-11-12 15:12] LABS: BASO % 1 % (0-3); EOS % 1 % (0-3); HEMOGLOBIN 12.4 g/dL (12.0-15.5); LYMPH # 1.7 x10^3/uL (1.0-4.8); LYMPH % 42 % (24-48); MEAN CORPUSCULAR HEMOGLOBIN 30 pg (25-35); MEAN CORPUSCULAR HGB CONC 33 g/dL (31-37); MEAN CORPUSCULAR VOLUME 91 fL (79-100); MONO # 0.5 x10^3/uL (0.0-1.1); MONO % 12 % (0-9); NEUT # 1.8 x10^3uL (1.8-7.7); NEUT % 45 % (31-73); PLATELET COUNT 199 x10^3/uL (140-400); RED CELL DISTRIBUTION WIDTH 14.3 % (11.5-14.5)
[2020-11-12 16:11] VITALS: BP 142/70
[2020-11-12] MEDS: DIVALPROEX ER 250 MG TAB.ER.24H. PO SCH (19:54)
[2020-11-12] MEDS: SERTRALINE 100 MG TABLET. PO SCH (19:54)
[2020-11-12] MEDS: risperiDONE 2 MG TABLET. PO SCH (19:54)
[2020-11-12] MEDS: AMANTADINE HCL 100 MG PO SCH (19:54)
[2020-11-12] MEDS: DIVALPROEX ER 500 MG TAB.ER.24H PO SCH (19:55)
[2020-11-12] MEDS ORDERED: INSULIN GLARGINE SYRINGE. SQ SCH (21:00)
--- NOTE | 2020-11-12 22:05 | PDOC ---
Exam Note: Jaren Note: Please also refer to the separate dictated note~for this date of service dictated separately.~Patient seen individually. Discussed the patient with Nursing staff reviewed the chart.~Reviewed interim history and current functioning. Reviewed vital signs,~Labs/ Radiology~and current medications noted below. Continue current treatment with the changes noted in the dictated addendum note Assessment: Vital Signs/I&O: Vital Signs Date Time Temp Pulse Resp B/P (MAP) Pulse Ox O2 Delivery O2 Flow Rate FiO2 11/12/20 16:11 96.4 80 18 142/70 (94) 99 11/11/20 16:04 Room Air I & O 11/11/20 11/11/20 11/12/20 15:00 23:00 07:00 Intake Total 480 ml 300 ml 120 ml Balance 480 ml 300 ml 120 ml Labs: Laboratory Tests Test 11/12/20 07:27 11/12/20 08:08 11/12/20 09:13 11/12/20 11:25 Glucose (Fingerstick) 43 mg/dL (70-99) L 92 mg/dL (70-99) 125 mg/dL (70-99) H Sodium Level 144 mmol/L (136-145) Potassium Level 4.3 mmol/L (3.5-5.1) Chloride Level 109 mmol/L (98-107) H Carbon Dioxide Level 25 mmol/L (21-32) Anion Gap 10 (6-14) Blood Urea Nitrogen 15 mg/dL (7-20) Creatinine 0.9 mg/dL (0.6-1.0) Estimated GFR (Cockcroft-Gault) 77.5 BUN/Creatinine Ratio 17 (6-20) Glucose Level 111 mg/dL (70-99) H Calcium Level 8.2 mg/dL (8.5-10.1) L Total Bilirubin 0.2 mg/dL (0.2-1.0) Aspartate Amino Transferase (AST) 17 U/L (15-37) Alanine Aminotransferase (ALT) 17 U/L (14-59) Alkaline Phosphatase 143 U/L (46-116) H Total Protein 6.2 g/dL (6.4-8.2) L Albumin 2.8 g/dL (3.4-5.0) L Albumin/Globulin Ratio 0.8 (1.0-1.7) L Test 11/12/20 14:49 11/12/20 16:51 11/12/20 19:27 White Blood Count 4.0 x10^3/uL (4.0-11.0) Red Blood Count 4.20 x10^6/uL (3.50-5.40) Hemoglobin 12.4 g/dL (12.0-15.5) Hematocrit 38.0 % (36.0-47.0) Mean Corpuscular Volume 91 fL (79-100) Mean Corpuscular Hemoglobin 30 pg (25-35) Mean Corpuscular Hemoglobin Concent 33 g/dL (31-37) Red Cell Distribution Width 14.3 % (11.5-14.5) Platelet Count 199 x10^3/uL (140-400) Neutrophils (%) (Auto) 45 % (31-73) Lymphocytes (%) (Auto) 42 % (24-48) Monocytes (%) (Auto) 12 % (0-9) H Eosinophils (%) (Auto) 1 % (0-3) Basophils (%) (Auto) 1 % (0-3) Neutrophils # (Auto) 1.8 x10^3uL (1.8-7.7) Lymphocytes # (Auto) 1.7 x10^3/uL (1.0-4.8) Monocytes # (Auto) 0.5 x10^3/uL (0.0-1.1) Eosinophils # (Auto) 0.0 x10^3/uL (0.0-0.7) Basophils # (Auto) 0.0 x10^3/uL (0.0-0.2) Glucose (Fingerstick) 355 mg/dL (70-99) H 225 mg/dL (70-99) H Current Medications: Meds: Laboratory Tests Test 11/12/20 07:27 11/12/20 08:08 11/12/20 09:13 11/12/20 11:25 Glucose (Fingerstick) 43 mg/dL 92 mg/dL 125 mg/dL Sodium Level 144 mmol/L Potassium Level 4.3 mmol/L Chloride Level 109 mmol/L Carbon Dioxide Level 25 mmol/L Anion Gap 10 Blood Urea Nitrogen 15 mg/dL Creatinine 0.9 mg/dL Estimated GFR (Cockcroft-Gault) 77.5 BUN/Creatinine Ratio 17 Glucose Level 111 mg/dL Calcium Level 8.2 mg/dL Total Bilirubin 0.2 mg/dL Aspartate Amino Transf (AST/SGOT) 17 U/L Alanine Aminotransferase (ALT/SGPT) 17 U/L Alkaline Phosphatase 143 U/L Total Protein 6.2 g/dL Albumin 2.8 g/dL Albumin/Globulin Ratio 0.8 Test 11/12/20 14:49 11/12/20 16:51 11/12/20 19:27 White Blood Count 4.0 x10^3/uL Red Blood Count 4.20 x10^6/uL Hemoglobin 12.4 g/dL Hematocrit 38.0 % Mean Corpuscular Volume 91 fL Mean Corpuscular Hemoglobin 30 pg Mean Corpuscular Hemoglobin Concent 33 g/dL Red Cell Distribution Width 14.3 % Platelet Count 199 x10^3/uL Neutrophils (%) (Auto) 45 % Lymphocytes (%) (Auto) 42 % Monocytes (%) (Auto) 12 % Eosinophils (%) (Auto) 1 % Basophils (%) (Auto) 1 % Neutrophils # (Auto) 1.8 x10^3uL Lymphocytes # (Auto) 1.7 x10^3/uL Monocytes # (Auto) 0.5 x10^3/uL Eosinophils # (Auto) 0.0 x10^3/uL Basophils # (Auto) 0.0 x10^3/uL Glucose (Fingerstick) 355 mg/dL 225 mg/dL Current Medications Medications (Trade) Dose Ordered Sig/Jenise Route PRN Reason Start Time Stop Time Status Last Admin Dose Admin Acetaminophen (Tylenol) 650 mg PRN Q6HRS PRN PO MILD PAIN / TEMP > 100.3'F 10/25/20 19:00 11/12/20 17:34 Multi-Ingredient Ointment (Analgesic Epes) 1 cody PRN QID PRN TP MUSCLE PAIN 10/25/20 19:00 Al Hydroxide/Mg Hydroxide (Mylanta Plus Xs) 15 ml PRN AFTMEALHC PRN PO DYSPEPSIA 10/25/20 19:00 Magnesium Hydroxide (Milk Of Magnesia) 2,400 mg PRN QHS PRN PO CONSTIPATION 10/25/20 19:00 Insulin Human Lispro (HumaLOG) 0-7 UNITS TIDWMEALS SQ 10/26/20 08:00 10/26/20 16:01 DC 10/26/20 12:20 Dextrose (Dextrose 50%-Water Syringe) 12.5 gm PRN Q15MIN PRN IV SEE COMMENTS 10/25/20 22:15 10/26/20 16:01 DC Insulin Human Lispro (HumaLOG) 10 units BID94 SQ 10/26/20 09:00 10/26/20 16:01 DC 10/26/20 09:00 Insulin Human Lispro (HumaLOG) 18 units NOON SQ 10/26/20 12:00 10/26/20 16:01 DC 10/26/20 12:00 Acetaminophen (Tylenol) 1,000 mg DAILY PO 10/26/20 09:00 11/12/20 08:52 Buspirone HCl (Buspar) 10 mg BID PO 10/25/20 23:00 10/31/20 17:02 DC 10/31/20 12:33 Furosemide (Lasix) 20 mg DAILY PO 10/26/20 09:00 11/12/20 08:52 Lorazepam (Ativan) 2 mg PRN Q4HRS PRN PO ANXIETY / AGITATION 10/25/20 23:00 10/30/20 20:05 Risperidone (RisperDAL) 0.75 mg QHS PO 10/25/20 23:00 10/31/20 17:02 DC 10/30/20 20:05 Sertraline HCl (Zoloft) 100 mg DAILY PO 10/26/20 09:00 11/02/20 17:22 DC 11/02/20 09:05 Amantadine HCl (Symmetrel) 100 mg HS PO 10/25/20 23:00 11/12/20 19:54 Non-Formulary Medication (Capsaicin/ Menthol (Salonpas Gel-Patch Hot)) 1 patch DAILY TP 10/26/20 09:00 UNV Divalproex Sodium (Depakote) 1,250 mg HS PO 10/25/20 23:00 10/26/20 13:06 DC 10/25/20 23:18 Insulin Glargine (Lantus Syringe) 16 unit NOON SQ 10/26/20 12:00 10/26/20 16:01 DC 10/26/20 12:00 Amylase/Lipase/ Protease (Zenpep 10,000) 2 cap DAILY PO 10/26/20 09:00 11/12/20 08:53 Meloxicam (Mobic) 15 mg HS PO 10/26/20 21:00 10/29/20 15:47 DC 10/28/20 20:05 Non-Formulary Medication (Insulin Lispro (Humalog)) 10 unit BID94 SQ 10/26/20 09:00 UNV Non-Formulary Medication (Insulin Lispro (Humalog)) 18 unit NOON SQ 10/26/20 12:00 UNV Nicotine (Nicoderm Cq 14mg Patch) 1 patch DAILY TD 10/26/20 09:00 11/12/20 08:54 Divalproex Sodium (Depakote Er) 1,000 mg HS PO 10/26/20 21:00 11/12/20 19:55 Divalproex Sodium (Depakote Er) 250 mg HS PO 10/26/20 21:00 11/12/20 19:54 Glucose (Insta-Glucose) 15 gm PRN Q15MIN PRN PO LOW BLOOD SUGAR 10/26/20 15:45 11/12/20 07:35 Insulin Glargine (Lantus Syringe) 8 unit NOON SQ 10/26/20 16:00 UNV Insulin Human Lispro (HumaLOG) 0-5 UNITS TIDWMEALS SQ 10/27/20 08:00 10/27/20 19:44 DC 10/27/20 17:29 Dextrose (Dextrose 50%-Water Syringe) 12.5 gm PRN Q15MIN PRN IV SEE COMMENTS 10/26/20 16:15 Insulin Human Lispro (HumaLOG) 0-5 UNITS QIDACHS SQ 10/27/20 21:00 10/28/20 11:58 DC 10/27/20 20:47 Insulin Glargine (Lantus Syringe) 10 unit QHS SQ 10/28/20 21:00 10/29/20 15:43 DC 10/28/20 20:07 Insulin Human Lispro (HumaLOG) 0-9 UNITS TIDWMEALS SQ 10/28/20 12:00 11/12/20 17:41 Dextrose (Dextrose 50%-Water Syringe) 12.5 gm PRN Q15MIN PRN IV SEE COMMENTS 10/28/20 12:00 UNV Insulin Human Lispro (HumaLOG) 12 units ONCE SQ 10/28/20 12:00 11/04/20 07:18 DC 10/28/20 12:17 Insulin Glargine (Lantus Syringe) 15 unit QHS SQ 10/29/20 21:00 11/01/20 12:43 DC 10/31/20 21:05 Risperidone (RisperDAL) 1 mg QHS PO 10/31/20 21:00 11/01/20 10:59 DC 10/31/20 20:42 Bupropion HCl (Wellbutrin Xl) 150 mg DAILY PO 11/01/20 09:00 11/02/20 17:22 DC 11/02/20 09:05 Risperidone (RisperDAL) 1.5 mg QHS PO 11/01/20 21:00 11/05/20 17:15 DC 11/04/20 20:14 Insulin Glargine (Lantus Syringe) 20 unit QHS SQ 11/01/20 21:00 11/03/20 19:16 DC 11/02/20 21:20 Insulin Human Lispro (HumaLOG) 12 units 1X ONCE SQ 11/01/20 19:45 11/01/20 19:46 DC 11/01/20 19:45 Bupropion HCl (Wellbutrin Xl) 300 mg DAILY PO 11/03/20 09:00 11/12/20 08:53 Sertraline HCl (Zoloft) 100 mg HS PO 11/03/20 21:00 11/12/20 19:54 Insulin Glargine (Lantus Syringe) 25 unit QHS SQ 11/03/20 21:00 11/06/20 10:19 DC 11/05/20 21:36 Insulin Human Lispro (HumaLOG) 15 units 1X ONCE SQ 11/03/20 19:30 11/03/20 19:31 DC 11/03/20 19:24 Olanzapine (ZyPREXA ZYDIS) 2.5 mg PRN Q2HRS PRN PO PSYCHOSIS 11/04/20 17:45 Olanzapine (ZyPREXA ZYDIS) 10 mg 1X ONCE PO 11/05/20 07:45 11/05/20 08:02 DC 11/05/20 08:10 Insulin Human Lispro (HumaLOG) 16 units ONCE SQ 11/05/20 12:30 11/05/20 12:30 DC Insulin Human Lispro (HumaLOG) 7 units 1X ONCE SQ 11/05/20 12:45 11/05/20 12:46 DC 11/05/20 13:09 Risperidone (RisperDAL) 2 mg QHS PO 11/05/20 21:00 11/12/20 19:54 Insulin Glargine (Lantus Syringe) 20 unit QHS SQ 11/06/20 21:00 11/12/20 14:52 DC 11/11/20 20:33 Insulin Human Lispro (HumaLOG) 3 units ONCE SQ 11/08/20 12:00 11/08/20 13:43 DC Insulin Human Lispro (HumaLOG) 3 units 1X ONCE SQ 11/08/20 13:45 11/08/20 13:46 DC 11/08/20 13:45 Amlodipine Besylate (Norvasc) 2.5 mg DAILY PO 11/11/20 09:00 11/11/20 08:14 Insulin Human Lispro (HumaLOG) 5 units BIDPCLD SQ 11/10/20 17:30 11/12/20 17:42 Glucose (Insta-Glucose) 15 gm PRN Q15MIN PRN PO LOW BLOOD SUGAR 11/12/20 07:45 Insulin Glargine (Lantus Syringe) 16 unit QHS SQ 11/12/20 21:00 11/12/20 21:17 Current Medications Medications (Trade) Dose Ordered Sig/Jenise Route PRN Reason Start Time Stop Time Status Last Admin Dose Admin Insulin Glargine (Lantus Syringe) 16 unit QHS SQ 11/12/20 21:00 11/12/20 21:17 I have reviewed the current psychotropics carefully including drug interactions. Risk benefit ratio favors no change other than as noted in my dictated progress note. Diagnosis: Problems: (1) Schizoaffective disorder, bipolar type (2) Impulse control disorder, unspecified (3) Mild cognitive impairment (4) Anxiety disorder, unspecified (5) Bipolar disorder, current episode mixed, severe, with psychotic features JESSICA RAMESH MD Nov 12, 2020 22:05
--- NOTE | 2020-11-12 23:02 | NUR ---
Pt located in her room this evening reading a book. Compliant with whole medications. No behaviors.
[2020-11-13] MEDS ORDERED: ACET325T9 PO (01:07)
[2020-11-13] MEDS ORDERED: INSU100I11 SQ (01:08)
[2020-11-13] MEDS ORDERED: MAG-124 PO (01:10)
[2020-11-13] MEDS ORDERED: METH57CR17 TP (01:11)
[2020-11-13] MEDS ORDERED: MAGN24003 PO (01:11)
[2020-11-13] MEDS ORDERED: OLAN2.5T3 PO (01:12)
[2020-11-13] MEDS ORDERED: NICO1PAT25 TD (01:12)
[2020-11-13] MEDS ORDERED: AMLO2.5T2 PO (01:13)
[2020-11-13] MEDS ORDERED: BUPR300T92 PO (01:13)
[2020-11-13 05:11] VITALS: BP 139/75
[2020-11-13] MEDS: INSULIN LISPRO 300 UNITS/3 ML VIAL. SQ SCH (08:00)
[2020-11-13 08:34] VITALS: BP 139/75
[2020-11-13] MEDS: ACETAMINOPHEN 500 MG TABLET PO SCH (08:34)
[2020-11-13] MEDS: amLODIPine BESYLATE 2.5 MG TABLET PO SCH (08:34)
[2020-11-13] MEDS: FUROSEMIDE 20 MG TABLET PO SCH (08:35)
[2020-11-13] MEDS: buPROPion XL 300 MG TAB.ER.24H. PO SCH (08:35)
[2020-11-13] MEDS: LIPASE/PROTEAS/AMYLAS 10/32/42 CAPSULE.DR. PO SCH (08:40)
[2020-11-13] MEDS: NICOTINE 14MG PATCH. TD SCH (08:40)
--- NOTE | 2020-11-13 09:00 | NUR ---
Tobacco Discharge Note [facility] Tobacco Hotline called with patient prior to discharge, Patient refused Tobacco cessation medication listed with current medications for discharge. YES Transition Record was faxed to follow-up provider with the following elements: Reason for admission, procedures, tests, principal diagnosis, pending studies, patient instructions, 17/11 contact information for unit, phone number to obtain pending test results, plan for follow-up care, physician follow-up, advanced directive information, and medication list with dose, duration and instructions. This information was included in the following documents: History and physical, lab results, study results, progress notes, social work planning form, DC instruction form, patient visit summary, and medication reconciliation form. Date & time record faxed: 11/13/20 [id number] Record faxed to: [facility] and [facility] [phone] Record discussed with/ report given to: [place]
--- NOTE | 2020-11-13 21:51 | PDOC ---
Exam Note: Jaren Note: Please also refer to the separate dictated note~for this date of service dictated separately.~Patient seen individually. Discussed the patient with Nursing staff reviewed the chart.~Reviewed interim history and current functioning. Reviewed vital signs,~Labs/ Radiology~and current medications noted below. Continue current treatment with the changes noted in the dictated addendum note Assessment: Vital Signs/I&O: Vital Signs Date Time Temp Pulse Resp B/P (MAP) Pulse Ox O2 Delivery O2 Flow Rate FiO2 11/13/20 08:34 71 139/75 11/13/20 05:11 97.3 16 98 11/11/20 16:04 Room Air I & O 11/12/20 11/12/20 11/13/20 14:59 22:59 06:59 Intake Total 360 ml 600 ml Balance 360 ml 600 ml Labs: Laboratory Tests Test 11/13/20 07:49 Glucose (Fingerstick) 114 mg/dL (70-99) H Current Medications: Meds: Laboratory Tests Test 11/13/20 07:49 Glucose (Fingerstick) 114 mg/dL Current Medications Medications (Trade) Dose Ordered Sig/Jenise Route PRN Reason Start Time Stop Time Status Last Admin Dose Admin Acetaminophen (Tylenol) 650 mg PRN Q6HRS PRN PO MILD PAIN / TEMP > 100.3'F 10/25/20 19:00 11/13/20 10:28 DC 11/12/20 17:34 Multi-Ingredient Ointment (Analgesic [place]) 1 cody PRN QID PRN TP MUSCLE PAIN 10/25/20 19:00 11/13/20 10:28 DC Al Hydroxide/Mg Hydroxide (Mylanta Plus Xs) 15 ml PRN AFTMEALHC PRN PO DYSPEPSIA 10/25/20 19:00 11/13/20 10:28 DC Magnesium Hydroxide (Milk Of Magnesia) 2,400 mg PRN QHS PRN PO CONSTIPATION 10/25/20 19:00 11/13/20 10:28 DC Insulin Human Lispro (HumaLOG) 0-7 UNITS TIDWMEALS SQ 10/26/20 08:00 10/26/20 16:01 DC 10/26/20 12:20 Dextrose (Dextrose 50%-Water Syringe) 12.5 gm PRN Q15MIN PRN IV SEE COMMENTS 10/25/20 22:15 10/26/20 16:01 DC Insulin Human Lispro (HumaLOG) 10 units BID94 SQ 10/26/20 09:00 10/26/20 16:01 DC 10/26/20 09:00 Insulin Human Lispro (HumaLOG) 18 units NOON SQ 10/26/20 12:00 10/26/20 16:01 DC 10/26/20 12:00 Acetaminophen (Tylenol) 1,000 mg DAILY PO 10/26/20 09:00 11/13/20 10:28 DC 11/13/20 08:34 Buspirone HCl (Buspar) 10 mg BID PO 10/25/20 23:00 10/31/20 17:02 DC 10/31/20 12:33 Furosemide (Lasix) 20 mg DAILY PO 10/26/20 09:00 11/13/20 10:28 DC 11/13/20 08:35 Lorazepam (Ativan) 2 mg PRN Q4HRS PRN PO ANXIETY / AGITATION 10/25/20 23:00 11/13/20 10:28 DC 10/30/20 20:05 Risperidone (RisperDAL) 0.75 mg QHS PO 10/25/20 23:00 10/31/20 17:02 DC 10/30/20 20:05 Sertraline HCl (Zoloft) 100 mg DAILY PO 10/26/20 09:00 11/02/20 17:22 DC 11/02/20 09:05 Amantadine HCl (Symmetrel) 100 mg HS PO 10/25/20 23:00 11/13/20 10:28 DC 11/12/20 19:54 Non-Formulary Medication (Capsaicin/ Menthol (Salonpas Gel-Patch Hot)) 1 patch DAILY TP 10/26/20 09:00 UNV Divalproex Sodium (Depakote) 1,250 mg HS PO 10/25/20 23:00 10/26/20 13:06 DC 10/25/20 23:18 Insulin Glargine (Lantus Syringe) 16 unit NOON SQ 10/26/20 12:00 10/26/20 16:01 DC 10/26/20 12:00 Amylase/Lipase/ Protease (Zenpep 10,000) 2 cap DAILY PO 10/26/20 09:00 11/13/20 10:28 DC 11/13/20 08:40 Meloxicam (Mobic) 15 mg HS PO 10/26/20 21:00 10/29/20 15:47 DC 10/28/20 20:05 Non-Formulary Medication (Insulin Lispro (Humalog)) 10 unit BID94 SQ 10/26/20 09:00 UNV Non-Formulary Medication (Insulin Lispro (Humalog)) 18 unit NOON SQ 10/26/20 12:00 UNV Nicotine (Nicoderm Cq 14mg Patch) 1 patch DAILY TD 10/26/20 09:00 11/13/20 10:28 DC 11/13/20 08:40 Divalproex Sodium (Depakote Er) 1,000 mg HS PO 10/26/20 21:00 11/13/20 10:28 DC 11/12/20 19:55 Divalproex Sodium (Depakote Er) 250 mg HS PO 10/26/20 21:00 11/13/20 10:28 DC 11/12/20 19:54 Glucose (Insta-Glucose) 15 gm PRN Q15MIN PRN PO LOW BLOOD SUGAR 10/26/20 15:45 11/13/20 10:28 DC 11/12/20 07:35 Insulin Glargine (Lantus Syringe) 8 unit NOON SQ 10/26/20 16:00 UNV Insulin Human Lispro (HumaLOG) 0-5 UNITS TIDWMEALS SQ 10/27/20 08:00 10/27/20 19:44 DC 10/27/20 17:29 Dextrose (Dextrose 50%-Water Syringe) 12.5 gm PRN Q15MIN PRN IV SEE COMMENTS 10/26/20 16:15 11/13/20 10:28 DC Insulin Human Lispro (HumaLOG) 0-5 UNITS QIDACHS SQ 10/27/20 21:00 10/28/20 11:58 DC 10/27/20 20:47 Insulin Glargine (Lantus Syringe) 10 unit QHS SQ 10/28/20 21:00 10/29/20 15:43 DC 10/28/20 20:07 Insulin Human Lispro (HumaLOG) 0-9 UNITS TIDWMEALS SQ 10/28/20 12:00 11/13/20 10:28 DC 11/12/20 17:41 Dextrose (Dextrose 50%-Water Syringe) 12.5 gm PRN Q15MIN PRN IV SEE COMMENTS 10/28/20 12:00 UNV Insulin Human Lispro (HumaLOG) 12 units ONCE SQ 10/28/20 12:00 11/04/20 07:18 DC 10/28/20 12:17 Insulin Glargine (Lantus Syringe) 15 unit QHS SQ 10/29/20 21:00 11/01/20 12:43 DC 10/31/20 21:05 Risperidone (RisperDAL) 1 mg QHS PO 10/31/20 21:00 11/01/20 10:59 DC 10/31/20 20:42 Bupropion HCl (Wellbutrin Xl) 150 mg DAILY PO 11/01/20 09:00 11/02/20 17:22 DC 11/02/20 09:05 Risperidone (RisperDAL) 1.5 mg QHS PO 11/01/20 21:00 11/05/20 17:15 DC 11/04/20 20:14 Insulin Glargine (Lantus Syringe) 20 unit QHS SQ 11/01/20 21:00 11/03/20 19:16 DC 11/02/20 21:20 Insulin Human Lispro (HumaLOG) 12 units 1X ONCE SQ 11/01/20 19:45 11/01/20 19:46 DC 11/01/20 19:45 Bupropion HCl (Wellbutrin Xl) 300 mg DAILY PO 11/03/20 09:00 11/13/20 10:28 DC 11/13/20 08:35 Sertraline HCl (Zoloft) 100 mg HS PO 11/03/20 21:00 11/13/20 10:28 DC 11/12/20 19:54 Insulin Glargine (Lantus Syringe) 25 unit QHS SQ 11/03/20 21:00 11/06/20 10:19 DC 11/05/20 21:36 Insulin Human Lispro (HumaLOG) 15 units 1X ONCE SQ 11/03/20 19:30 11/03/20 19:31 DC 11/03/20 19:24 Olanzapine (ZyPREXA ZYDIS) 2.5 mg PRN Q2HRS PRN PO PSYCHOSIS 11/04/20 17:45 11/13/20 10:28 DC Olanzapine (ZyPREXA ZYDIS) 10 mg 1X ONCE PO 11/05/20 07:45 11/05/20 08:02 DC 11/05/20 08:10 Insulin Human Lispro (HumaLOG) 16 units ONCE SQ 11/05/20 12:30 11/05/20 12:30 DC Insulin Human Lispro (HumaLOG) 7 units 1X ONCE SQ 11/05/20 12:45 11/05/20 12:46 DC 11/05/20 13:09 Risperidone (RisperDAL) 2 mg QHS PO 11/05/20 21:00 11/13/20 10:28 DC 11/12/20 19:54 Insulin Glargine (Lantus Syringe) 20 unit QHS SQ 11/06/20 21:00 11/12/20 14:52 DC 11/11/20 20:33 Insulin Human Lispro (HumaLOG) 3 units ONCE SQ 11/08/20 12:00 11/08/20 13:43 DC Insulin Human Lispro (HumaLOG) 3 units 1X ONCE SQ 11/08/20 13:45 11/08/20 13:46 DC 11/08/20 13:45 Amlodipine Besylate (Norvasc) 2.5 mg DAILY PO 11/11/20 09:00 11/13/20 10:28 DC 11/13/20 08:34 Insulin Human Lispro (HumaLOG) 5 units BIDPCLD SQ 11/10/20 17:30 11/13/20 10:28 DC 11/12/20 17:42 Glucose (Insta-Glucose) 15 gm PRN Q15MIN PRN PO LOW BLOOD SUGAR 11/12/20 07:45 11/13/20 10:28 DC Insulin Glargine (Lantus Syringe) 16 unit QHS SQ 11/12/20 21:00 11/13/20 10:28 DC 11/12/20 21:17 I have reviewed the current psychotropics carefully including drug interactions. Risk benefit ratio favors no change other than as noted in my dictated progress note. Diagnosis: Problems: (1) Schizoaffective disorder, bipolar type (2) Impulse control disorder, unspecified (3) Mild cognitive impairment (4) Anxiety disorder, unspecified (5) Bipolar disorder, current episode mixed, severe, with psychotic features JESSICA RAMESH MD 20, 2021 21:51
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
--- NOTE | 2020-11-14 08:22 | PDOC ---
Exam Note: Jaren Note: This note is a late entry for 11/12/2020 covers elements not covered in my initial note. Subjective: The patient was seen individually in the evening of 11/12/2020 with Maryanne TOBIN, discussed and reviewed the chart. She slept 5 hours previous night. Overall the patient had a good night and has been quite appropriate during the day today. Mood lability is much better. No crying spells are noted. Review of Systems: Ambulation impaired in wheelchair. No CV, , pulmonary, eye, ENT system symptoms on review. Mental Status Exam: The patient is reasonably oriented. Speech coherent. Abstraction fair. Computation impaired. Language function intact. Attention span somewhat short. Mood and affect improved. Laboratory Data: Reviewed. Impression: Schizoaffective disorder bipolar type with psychotic features. Anxiety disorder unspecified. Impulse control disorder unspecified. Mild cognitive impairment. Plan: No change from initial note. Possible transition to a lower level of care starting tomorrow. Assessment: Vital Signs/I&O: Vital Signs Date Time Temp Pulse Resp B/P (MAP) Pulse Ox O2 Delivery O2 Flow Rate FiO2 11/13/20 08:34 71 139/75 11/13/20 05:11 97.3 16 98 11/11/20 16:04 Room Air I & O 11/13/20 11/13/20 11/14/20 15:00 23:00 07:00 Intake Total 480 ml Balance 480 ml Current Medications: Meds: Current Medications Medications (Trade) Dose Ordered Sig/Jenise Route PRN Reason Start Time Stop Time Status Last Admin Dose Admin Acetaminophen (Tylenol) 650 mg PRN Q6HRS PRN PO MILD PAIN / TEMP > 100.3'F 10/25/20 19:00 11/13/20 10:28 DC 11/12/20 17:34 Multi-Ingredient Ointment (Analgesic [place]) 1 cody PRN QID PRN TP MUSCLE PAIN 10/25/20 19:00 11/13/20 10:28 DC Al Hydroxide/Mg Hydroxide (Mylanta Plus Xs) 15 ml PRN AFTMEALHC PRN PO DYSPEPSIA 10/25/20 19:00 11/13/20 10:28 DC Magnesium Hydroxide (Milk Of Magnesia) 2,400 mg PRN QHS PRN PO CONSTIPATION 10/25/20 19:00 11/13/20 10:28 DC Insulin Human Lispro (HumaLOG) 0-7 UNITS TIDWMEALS SQ 10/26/20 08:00 10/26/20 16:01 DC 10/26/20 12:20 Dextrose (Dextrose 50%-Water Syringe) 12.5 gm PRN Q15MIN PRN IV SEE COMMENTS 10/25/20 22:15 10/26/20 16:01 DC Insulin Human Lispro (HumaLOG) 10 units BID94 SQ 10/26/20 09:00 10/26/20 16:01 DC 10/26/20 09:00 Insulin Human Lispro (HumaLOG) 18 units NOON SQ 10/26/20 12:00 10/26/20 16:01 DC 10/26/20 12:00 Acetaminophen (Tylenol) 1,000 mg DAILY PO 10/26/20 09:00 11/13/20 10:28 DC 11/13/20 08:34 Buspirone HCl (Buspar) 10 mg BID PO 10/25/20 23:00 10/31/20 17:02 DC 10/31/20 12:33 Furosemide (Lasix) 20 mg DAILY PO 10/26/20 09:00 11/13/20 10:28 DC 11/13/20 08:35 Lorazepam (Ativan) 2 mg PRN Q4HRS PRN PO ANXIETY / AGITATION 10/25/20 23:00 11/13/20 10:28 DC 10/30/20 20:05 Risperidone (RisperDAL) 0.75 mg QHS PO 10/25/20 23:00 10/31/20 17:02 DC 10/30/20 20:05 Sertraline HCl (Zoloft) 100 mg DAILY PO 10/26/20 09:00 11/02/20 17:22 DC 11/02/20 09:05 Amantadine HCl (Symmetrel) 100 mg HS PO 10/25/20 23:00 11/13/20 10:28 DC 11/12/20 19:54 Non-Formulary Medication (Capsaicin/ Menthol (Salonpas Gel-Patch Hot)) 1 patch DAILY TP 10/26/20 09:00 UNV Divalproex Sodium (Depakote) 1,250 mg HS PO 10/25/20 23:00 10/26/20 13:06 DC 10/25/20 23:18 Insulin Glargine (Lantus Syringe) 16 unit NOON SQ 10/26/20 12:00 10/26/20 16:01 DC 10/26/20 12:00 Amylase/Lipase/ Protease (Zenpep 10,000) 2 cap DAILY PO 10/26/20 09:00 11/13/20 10:28 DC 11/13/20 08:40 Meloxicam (Mobic) 15 mg HS PO 10/26/20 21:00 10/29/20 15:47 DC 10/28/20 20:05 Non-Formulary Medication (Insulin Lispro (Humalog)) 10 unit BID94 SQ 10/26/20 09:00 UNV Non-Formulary Medication (Insulin Lispro (Humalog)) 18 unit NOON SQ 10/26/20 12:00 UNV Nicotine (Nicoderm Cq 14mg Patch) 1 patch DAILY TD 10/26/20 09:00 11/13/20 10:28 DC 11/13/20 08:40 Divalproex Sodium (Depakote Er) 1,000 mg HS PO 10/26/20 21:00 11/13/20 10:28 DC 11/12/20 19:55 Divalproex Sodium (Depakote Er) 250 mg HS PO 10/26/20 21:00 11/13/20 10:28 DC 11/12/20 19:54 Glucose (Insta-Glucose) 15 gm PRN Q15MIN PRN PO LOW BLOOD SUGAR 10/26/20 15:45 11/13/20 10:28 DC 11/12/20 07:35 Insulin Glargine (Lantus Syringe) 8 unit NOON SQ 10/26/20 16:00 UNV Insulin Human Lispro (HumaLOG) 0-5 UNITS TIDWMEALS SQ 10/27/20 08:00 10/27/20 19:44 DC 10/27/20 17:29 Dextrose (Dextrose 50%-Water Syringe) 12.5 gm PRN Q15MIN PRN IV SEE COMMENTS 10/26/20 16:15 11/13/20 10:28 DC Insulin Human Lispro (HumaLOG) 0-5 UNITS QIDACHS SQ 10/27/20 21:00 10/28/20 11:58 DC 10/27/20 20:47 Insulin Glargine (Lantus Syringe) 10 unit QHS SQ 10/28/20 21:00 10/29/20 15:43 DC 10/28/20 20:07 Insulin Human Lispro (HumaLOG) 0-9 UNITS TIDWMEALS SQ 10/28/20 12:00 11/13/20 10:28 DC 11/12/20 17:41 Dextrose (Dextrose 50%-Water Syringe) 12.5 gm PRN Q15MIN PRN IV SEE COMMENTS 10/28/20 12:00 UNV Insulin Human Lispro (HumaLOG) 12 units ONCE SQ 10/28/20 12:00 11/04/20 07:18 DC 10/28/20 12:17 Insulin Glargine (Lantus Syringe) 15 unit QHS SQ 10/29/20 21:00 11/01/20 12:43 DC 10/31/20 21:05 Risperidone (RisperDAL) 1 mg QHS PO 10/31/20 21:00 11/01/20 10:59 DC 10/31/20 20:42 Bupropion HCl (Wellbutrin Xl) 150 mg DAILY PO 11/01/20 09:00 11/02/20 17:22 DC 11/02/20 09:05 Risperidone (RisperDAL) 1.5 mg QHS PO 11/01/20 21:00 11/05/20 17:15 DC 11/04/20 20:14 Insulin Glargine (Lantus Syringe) 20 unit QHS SQ 11/01/20 21:00 11/03/20 19:16 DC 11/02/20 21:20 Insulin Human Lispro (HumaLOG) 12 units 1X ONCE SQ 11/01/20 19:45 11/01/20 19:46 DC 11/01/20 19:45 Bupropion HCl (Wellbutrin Xl) 300 mg DAILY PO 11/03/20 09:00 11/13/20 10:28 DC 11/13/20 08:35 Sertraline HCl (Zoloft) 100 mg HS PO 11/03/20 21:00 11/13/20 10:28 DC 11/12/20 19:54 Insulin Glargine (Lantus Syringe) 25 unit QHS SQ 11/03/20 21:00 11/06/20 10:19 DC 11/05/20 21:36 Insulin Human Lispro (HumaLOG) 15 units 1X ONCE SQ 11/03/20 19:30 11/03/20 19:31 DC 11/03/20 19:24 Olanzapine (ZyPREXA ZYDIS) 2.5 mg PRN Q2HRS PRN PO PSYCHOSIS 11/04/20 17:45 11/13/20 10:28 DC Olanzapine (ZyPREXA ZYDIS) 10 mg 1X ONCE PO 11/05/20 07:45 11/05/20 08:02 DC 11/05/20 08:10 Insulin Human Lispro (HumaLOG) 16 units ONCE SQ 11/05/20 12:30 11/05/20 12:30 DC Insulin Human Lispro (HumaLOG) 7 units 1X ONCE SQ 11/05/20 12:45 11/05/20 12:46 DC 11/05/20 13:09 Risperidone (RisperDAL) 2 mg QHS PO 11/05/20 21:00 11/13/20 10:28 DC 11/12/20 19:54 Insulin Glargine (Lantus Syringe) 20 unit QHS SQ 11/06/20 21:00 11/12/20 14:52 DC 11/11/20 20:33 Insulin Human Lispro (HumaLOG) 3 units ONCE SQ 11/08/20 12:00 11/08/20 13:43 DC Insulin Human Lispro (HumaLOG) 3 units 1X ONCE SQ 11/08/20 13:45 11/08/20 13:46 DC 11/08/20 13:45 Amlodipine Besylate (Norvasc) 2.5 mg DAILY PO 11/11/20 09:00 11/13/20 10:28 DC 11/13/20 08:34 Insulin Human Lispro (HumaLOG) 5 units BIDPCLD SQ 11/10/20 17:30 11/13/20 10:28 DC 11/12/20 17:42 Glucose (Insta-Glucose) 15 gm PRN Q15MIN PRN PO LOW BLOOD SUGAR 11/12/20 07:45 11/13/20 10:28 DC Insulin Glargine (Lantus Syringe) 16 unit QHS SQ 11/12/20 21:00 11/13/20 10:28 DC 11/12/20 21:17 I have reviewed the current psychotropics carefully including drug interactions. Risk benefit ratio favors no change other than as noted in my dictated progress note. Diagnosis: Problems: (1) Schizoaffective disorder, bipolar type (2) Impulse control disorder, unspecified (3) Mild cognitive impairment (4) Anxiety disorder, unspecified (5) Bipolar disorder, current episode mixed, severe, with psychotic features JESSICA RAMESH MD Nov 14, 2020 08:22
== END 2020-11-13 09:00 | DRG 885 ==
LOC: ER 15:57 → GEROPSY 19:56
PROVIDERS: ADMIT Psychiatry & Neurology Psychiatry; ATTEND Psychiatry & Neurology Psychiatry
DX: F25.0 Schizoaffective disorder, bipolar type (principal); N17.0 Acute kidney failure with tubular necrosis; G93.1 Anoxic brain damage, not elsewhere classified; E11.649 Type 2 diabetes mellitus with hypoglycemia without coma; F03.90 Unspecified dementia, unspecified severity, without behavioral disturbance, psychotic disturbance, mood disturbance, and anxiety; F41.9 Anxiety disorder, unspecified; F63.9 Impulse disorder, unspecified; Z20.822 Contact with and (suspected) exposure to COVID-19; Z79.899 Other long term (current) drug therapy
CPT/HCPCS: 36415; 70450; 80053; 80061; 80164; 81001; 82306; 82607; 82947; 83036; 83540; 83550; 83735; 84436; 84443; 84480; 84484; 85025; 86592; 87086; 87426; 93005; 99407; J1815; U0003; 97530; 97535; 99285-25